=== PATIENT | male | born 1950 | race Caucasian/White ===

== ENCOUNTER 2020-11-14 15:50 | Inpatient (IN) ==
--- NOTE | 2020-11-14 17:12 | Communication Note ---
Date of Service: November 14, 2020 Received call from PCP, Dr Garcia about this pt, Mehdi Morillo. Pt had abnormal EKG outpatient today and reports is trying to get pt an echo for cardiac ahmet luation pre-op EUS scheduled for 11/16/[address] Thompson. I spoke with Dr Alexander, who states that PCP can order echo. If pt has done at [facility] tomorrow he would be able to read it prior to pt's procedure on 11/16/20. Called Dr Garcia back to inform that he can order outpatient echo.
--- NOTE | 2020-11-14 17:35 | Emergency Department Note ---
Impression & Plan Transaminitis, Elevated bilirubin, Abnormal ECG, Acute hyperglycemia ED Provider Note NAME: GUILHERME OLEA JR AGE: 70 SEX: M : 1950 ARRIVES VIA: Walk-In INFORMANT: Patient ED PROVIDER(S): Subhash Mills DO CHIEF COMPLAINT: abnormal ekg HPI: Patient is a 70-year-old male who presents the ER for abnormal EKG referred in by his PCP. Past medical history includes neuroendocrine carcinoma low- grade. Currently they are working this up as an outpatient. He has a ERCP scheduled on Thursday. He had an EKG which was abnormal. And consequently was referred into the ER for an echo. Patient denies any belly pain, nausea, vomiting or diarrhea. Patient initially notes that the jaundice has been present for the past month. Denies any recent CT. Denies any headache or change in vision. No other exacerbating or remitting factors. He denies any chest pain or shortness of breath. No exertional symptoms. ROS: See above HPI for pertinent positives & negatives. A total of 10 systems reviewed and were otherwise negative. PAST MEDICAL HISTORY:See Below PAST SURGICAL HISTORY:See Below FAMILY HISTORY:See Below SOCIAL HISTORY:See Below HOME MEDICATIONS:See Below ALLERGIES:See Below VITALS:See Below PHYSICAL EXAMINATION: GENERAL: Sitting up in bed, alert, well appearing, well nourished, no distress, non-toxic EYE EXAM: Scleral icterus PERRL and EOM's grossly intact. OROPHARYNX: no exudate, no erythema, lips, buccal mucosa, and tongue normal and mucous membranes are moist NECK: supple, no nuchal rigidity, no adenopathy, non-tender LUNGS: Clear to auscultation. Normal chest wall mechanics HEART: no murmurs, S1 normal and S2 normal ABDOMEN: abdomen soft, non-tender, normo-active bowel sounds, no masses, no rebound or guarding. BACK: Back is symmetrical on inspection and there is no deformity, no midline tenderness, no CVA tenderness. SKIN: no rashes and no bruising UPPER EXTREMITIES: upper extremities are grossly normal. LOWER EXTREMITIES: No pitting edema. NEURO EXAM: Normal sensorium, cranial nerves II-XII grossly intact, normal spee ch, no gross weakness of arms, no gross weakness of legs. MEDICAL DECISION MAKING: Patient is a 70-year-old male referred in by what appears to be his PCP for an abnormal EKG. I discussed this with Dr. Alexander who agrees that this can be done as an outpatient. IV was established and blood work was obtained. Labs show no significant leukocytosis and no anemia. BMP was unremarkable. Bilirubin elevated at 7.2 and transaminitis in the low 100s. Troponin was detectable at 0.026. Lipase was normal. Covid was negative. Chest x-ray unremarkable. EKG did have changes from previous. He is asymptomatic. I discussed the case with Jodi from [facility] service. She has been dealing with this case extensively with the outpatient providers. She discussed with Dr. Alexander as well as Dr. Garcia. Dr. Alexander is willing to perform ECHO as an outpatient tomorrow. Dr. Garcia was contacted to place that order per report. Contacted Dr. Melgar with as they sent over information as well. He was requesting admission as he had spoke with Dr. Thompson and they were hoping to get an echo and scope him tomorrow. Dr. Thompson is no longer on-call and I am unable to contact him. We discussed with Jodi [facility] service. Updated the patient at bedside. At this time of night unable to confirm true plan for tomorrow but as Dr. Melgar had discussed with Dr. Thompson will go with this plan and admit to the hospitalist. Triage Nursing notes reviewed. Limited review of prior medical records performed Vital Signs: reviewed and remarkable for HTN Differential diagnosis: Differential diagnoses includes but is not limited to gastritis, peptic ulcer disease, GERD, gallbladder disease, pancreatitis, small bowel obstruction, acute coronary syndrome, pericarditis, ischemic bowel, irritable bowel disease, irritable bowel syndrome, appendicitis, diverticulitis, malignancy, hernia, urinary tract infection, torsion, /ectopic (if female), perforation, trauma, infectious. ER treatment provided: See below Diagnostics interpreted by me: ECG: Sinus rhythm rate of 64 Left axis Right bundle branch block T wave inversion lateral leads QTC 447 Septal infarct T wave inversions are new from previous in 2016 Cardiac Monitoring: An order was placed for continuous cardiac monitoring. The monitor shows a rate of 60 with sinus rhythm. Laboratory studies: As stated above and show below. Imaging studies: Portable AP upright 1 view of the chest shows no focal infiltrate or pneumothorax Consultation(s): Discussed with multiple consultants as stated above Procedures: none Critical Care: None Past Med/Surg History Medical History (Updated 11/14/20 @ 21:36 by Subhash Mills DO) Benign neoplasm of colon Bifascicular block Diabetes mellitus, type 2 IDDM Hypertension Malignant carcinoid tumor of small intestine 2016, Follows with oncology (Dr. Melgar), s/p surgery plus monthly injection Neuroendocrine carcinoma metastatic to liver 2016, Follows with oncology (Dr. Melgar), s/p surgery plus monthly injection Surgical History History of appendectomy History of bowel resection small intestine and tumor removal History of cholecystectomy History of colonoscopy History of esophagogastroduodenoscopy (EGD) Social History Smoking Status: Current some day smoker Tobacco Type: Cigarettes Cigarettes Per Day: 3 per day; Second Hand Exposure: No; Hx Alcohol Use: Yes Alcohol type: wine Hx Substance Use: No Preferred Language: Bolivian Beliefs That Will Affect Care: None Current Living Situation: Spouse Feels Safe at Home: Yes Assistive Devices: Contacts Allergies Allergies Allergy/AdvReac Type Severity Reaction Status Date / Time No Known Allergies Allergy Verified 11/14/20 17:59 Home Meds Home Medications Medication Instructions Recorded Confirmed aspirin [Aspirin Low Dose] 81 mg PO QAM 11/14/20 11/14/20 cholecalciferol (vitamin D3) 50 mcg PO QAM 11/14/20 11/14/20 [Vitamin D3] insulin degludec [Tresiba 10 unit SUBCUT QAM 11/14/20 11/14/20 FlexTouch U-100] lisinopril 40 mg PO QAM 11/14/20 11/14/20 multivitamin 1 tab PO QAM 11/14/20 11/14/20 omega-3 fatty acids [[place] 3] 2,000 mg PO QAM 11/14/20 11/14/20 sildenafil [Viagra] 20 mg PO DAILY PRN 11/14/20 11/14/20 Results & Data (ED) Vital Signs Vital Signs - 24 hr 11/14/20 16:20 11/14/20 17:49 11/14/20 17:52 Temperature 36.1 C L Temperature Source Temporal Artery Scan Pulse Rate 70 58 L Pulse Rate [Right Finger] 58 L Pulse Rhythm [Right Finger] Regular Respiratory Rate 18 17 18 Respiratory Effort / Characteristics Non-Labored Respiratory Depth Normal Respiratory Pattern Blood Pressure 179/93 H 189/96 H Blood Pressure [Left Arm] 189/96 H Blood Pressure Mean 121 127 Blood Pressure Mean [Left Arm] 127 Pulse Oximetry 100 96 Oxygen Delivery Method Room Air Room Air Room Air Sepsis Recent Fever Within 48 Hours No Sepsis New/Unexplained Change in Mental Status N/A Sepsis Action Taken by Nursing No Action Required 11/14/20 18:00 11/14/20 18:02 11/14/20 18:30 Temperature Temperature Source Pulse Rate 55 L 56 L 57 L Pulse Rate [Right Finger] Pulse Rhythm [Right Finger] Respiratory Rate 18 18 14 Respiratory Effort / Characteristics Respiratory Depth Respiratory Pattern Blood Pressure 189/98 H Blood Pressure [Left Arm] Blood Pressure Mean 128 Blood Pressure Mean [Left Arm] Pulse Oximetry Oxygen Delivery Method Sepsis Recent Fever Within 48 Hours Sepsis New/Unexplained Change in Mental Status Sepsis Action Taken by Nursing 11/14/20 19:20 11/14/20 20:23 11/14/20 21:28 Temperature Temperature Source Pulse Rate Pulse Rate [Right Finger] 58 L 57 L 73 Pulse Rhythm [Right Finger] Respiratory Rate 20 20 20 Respiratory Effort / Characteristics Non-Labored Spontaneous Non-Labored Spontaneous Non-Labored Spontaneous Respiratory Depth Normal Normal Normal Respiratory Pattern Regular Regular Regular Blood Pressure Blood Pressure [Left Arm] 219/107 H 215/109 H 205/90 H Blood Pressure Mean Blood Pressure Mean [Left Arm] 144 144 128 Pulse Oximetry 99 100 100 Oxygen Delivery Method Room Air Room Air Room Air Sepsis Recent Fever Within 48 Hours Sepsis New/Unexplained Change in Mental Status Sepsis Action Taken by Nursing Laboratory Data Result diagrams: 11/14/20 17:35 11/14/20 17:35 Lab Results 11/14/20 11/14/20 11/14/20 Range/Units 17:35 17:35 19:24 WBC 5.54 (4.8-10.8) K/uL RBC 3.76 L (4.7-6.1) M/uL Hgb 12.9 L (14.0-18.0) g/dL Hct 36.4 L (42-52) % MCV 96.8 (80-100) fL MCH 34.3 H (25-34) pg MCHC 35.4 (32-36) g/dL RDW Std Deviation 49.1 H (36.4-46.3) fL RDW Coeff of Gumaro 13.8 (11.5-14.5) % Plt Count 162 (130-400) K/uL MPV 12.3 H (7.4-10.4) fL Immature Gran % (Auto) 0.5 % Neut % (Auto) 60.9 % Lymph % (Auto) 26.7 % Harris % (Auto) 9.6 % Eos % (Auto) 1.8 % Baso % (Auto) 0.5 % Neut # (Auto) 3.37 (1.4-6.5) K/uL Lymph # (Auto) 1.48 (1.2-3.4) K/uL Harris # (Auto) 0.53 (0.11-0.59) K/uL Eos # (Auto) 0.10 (0-0.5) K/uL Baso # (Auto) 0.03 (0-0.2) K/uL Immature Gran # (Auto) 0.03 H (0.00-0.02) K/uL Sodium 133 L (136-145) mmol/L Potassium 4.7 (3.5-5.1) mmol/L Chloride 102 (98-107) mmol/L Carbon Dioxide 26 (21-32) mmol/L Anion Gap 5.0 (3-11) BUN 23 H (7-18) mg/dl Creatinine 1.07 (0.6-1.4) mg/dl Est Cr Clr Drug Dosing 63.5 ml/min Est GFR ( Amer) 81.1 Est GFR (Non-Af Amer) 70.0 BUN/Creatinine Ratio 21.3 H (10-20) Glucose 275 H (70-99) mg/dl Calcium 9.5 (8.5-10.1) mg/dl Magnesium 1.8 (1.8-2.4) mg/dl Total Bilirubin 7.2 H (0.2-1) mg/dl AST 118 H (15-37) U/L ALT 156 H (12-78) U/L Alkaline Phosphatase 653 H (45-117) U/L Troponin I 0.026 (0-0.045) ng/ml Total Protein 7.2 (6.4-8.2) gm/dl Albumin 3.5 (3.4-5.0) gm/dl Globulin 3.7 (2.5-4.0) gm/dl Albumin/Globulin Ratio 0.9 (0.9-2) Lipase 98 (73-393) U/L COVID-19 Eval Order CovFluRsv at [facility] SARS-CoV-2 (PCR) (Negative) Influenza Type A (PCR) (Neg) Influenza Type B (PCR) (Neg) RSV (RT-PCR) (Neg) 11/14/20 Range/Units 19:24 WBC (4.8-10.8) K/uL RBC (4.7-6.1) M/uL Hgb (14.0-18.0) g/dL Hct (42-52) % MCV (80-100) fL MCH (25-34) pg MCHC (32-36) g/dL RDW Std Deviation (36.4-46.3) fL RDW Coeff of Gumaro (11.5-14.5) % Plt Count (130-400) K/uL MPV (7.4-10.4) fL Immature Gran % (Auto) % Neut % (Auto) % Lymph % (Auto) % Harris % (Auto) % Eos % (Auto) % Baso % (Auto) % Neut # (Auto) (1.4-6.5) K/uL Lymph # (Auto) (1.2-3.4) K/uL Harris # (Auto) (0.11-0.59) K/uL Eos # (Auto) (0-0.5) K/uL Baso # (Auto) (0-0.2) K/uL Immature Gran # (Auto) (0.00-0.02) K/uL Sodium (136-145) mmol/L Potassium (3.5-5.1) mmol/L Chloride (98-107) mmol/L Carbon Dioxide (21-32) mmol/L Anion Gap (3-11) BUN (7-18) mg/dl Creatinine (0.6-1.4) mg/dl Est Cr Clr Drug Dosing ml/min Est GFR ( Amer) Est GFR (Non-Af Amer) BUN/Creatinine Ratio (10-20) Glucose (70-99) mg/dl Calcium (8.5-10.1) mg/dl Magnesium (1.8-2.4) mg/dl Total Bilirubin (0.2-1) mg/dl AST (15-37) U/L ALT (12-78) U/L Alkaline Phosphatase (45-117) U/L Troponin I (0-0.045) ng/ml Total Protein (6.4-8.2) gm/dl Albumin (3.4-5.0) gm/dl Globulin (2.5-4.0) gm/dl Albumin/Globulin Ratio (0.9-2) Lipase (73-393) U/L COVID-19 Eval Order SARS-CoV-2 (PCR) NEGATIVE (Negative) Influenza Type A (PCR) Negative (Neg) Influenza Type B (PCR) Negative (Neg) RSV (RT-PCR) Negative (Neg) Administered Medications Discontinued Medications Amlodipine Besylate (Amlodipine Besylate 5 Mg Tab) 2.5 mg PO NOW ONE Stop: 11/14/20 20:08 Last Admin: 11/14/20 20:31 Dose: 2.5 mg Documented by: [id number] Hydralazine HCl (Hydralazine Hcl 20 Mg/Ml Vial) 10 mg IV NOW STA Stop: 11/14/20 19:30 Last Admin: 11/14/20 19:53 Dose: 10 mg Documented by: [id number] Thiamine HCl 100 mg/ Syringe 10 mls @ 2 mls/min IV NOW STA Stop: 11/14/20 20:15 Last Admin: 11/14/20 20:33 Dose: 2 mls/min Documented by: [id number] Discharge Plan Visit Data Chief Complaint: Referred by Doctor Stated Complaint: referred by Dr. Melgar ED Provider: Subhash Mills Discharge Problem: Transaminitis, Elevated bilirubin, Abnormal ECG, Acute hyperglycemia Forms Stand Alone Forms: My [facility] [employer] Prescriptions Prescriptions: No Action multivitamin Tablet 1 tab PO QAM RF: 0 cholecalciferol (vitamin D3) [Vitamin D3] 50 mcg (2,000 unit) Capsule 50 mcg PO QAM RF: 0 Tresiba FlexTouch U-100 100 unit/mL (3 mL) Insulin Pen 10 unit SUBCUT QAM RF: 0 sildenafil [Viagra] 25 mg Tablet 20 mg PO DAILY PRN (Reason: Erectile Disfuction) RF: 0 lisinopril 40 mg Tablet 40 mg PO QAM RF: 0 aspirin [Aspirin Low Dose] 81 mg Tablet,Delayed Release (Dr/Ec) 81 mg PO QAM RF: 0 [place] 3 Capsule 2,000 mg PO QAM RF: 0
[2020-11-14 17:44] LABS: Basophils # (auto) 0.03 K/uL (0-0.2); Basophils % (auto) 0.5 %; Eosinophils % (auto) 1.8 %; Hematocrit (blood only) 36.4 % (42-52); Hemoglobin 12.9 g/dL (14.0-18.0); Immature Granulocytes # (auto) 0.03 K/uL (0.00-0.02); Immature Granulocytes % (auto) 0.5 %; Lymphocytes # (auto) 1.48 K/uL (1.2-3.4); Lymphocytes % (auto) 26.7 %; Mean Corpuscular Hemoglobin 34.3 pg (25-34); Mean Corpuscular Hgb Conc 35.4 g/dL (32-36); Mean Corpuscular Volume 96.8 fL (80-100); Mean Platelet Volume 12.3 fL (7.4-10.4); Monocytes # (auto) 0.53 K/uL (0.11-0.59); Monocytes % (auto) 9.6 %; Neutrophils # (auto) 3.37 K/uL (1.4-6.5); Neutrophils % (auto) 60.9 %; Platelet Count 162 K/uL (130-400); RDW Coefficient of Variation 13.8 % (11.5-14.5); RDW Standard Deviation 49.1 fL (36.4-46.3); Red Blood Count 3.76 M/uL (4.7-6.1); White Blood Count 5.54 K/uL (4.8-10.8)
--- NOTE | 2020-11-14 17:45 | XRay Report ---
XR chest 1V portable CLINICAL HISTORY: Atypical chest pain COMPARISON STUDY: 03/04/2016 FINDINGS: The cardiac and mediastinal contours are normal. There is no evidence of focal pulmonary co nsolidation. There is no evidence of failure. No pleural effusions are visualized.[A left midlung zon e area of increased density is felt to represent a summation of rib and scapula. IMPRESSION: No active disease in the chest. ACT 112: Negative or not required by law. Electronically signed by: Chan Turner M.D. 11/14/2020 5:44 PM
[2020-11-14 18:05] LABS: Albumin Globulin Ratio 0.9 (0.9-2); Albumin Level 3.5 gm/dl (3.4-5.0); BUN Creatinine Ratio 21.3 (10-20); Bilirubin,Total 7.2 mg/dl (0.2-1); Calcium 9.5 mg/dl (8.5-10.1); Creatinine Clr Calc Pharmacy 63.5 ml/min; Est GFR (African American) 81.1; Globulin 3.7 gm/dl (2.5-4.0); Potassium 4.7 mmol/L (3.5-5.1); Total Protein 7.2 gm/dl (6.4-8.2); Troponin I 0.026 ng/ml (0-0.045)
[2020-11-14] MEDS ORDERED: hydrALAZINE HCL 20 MG/ML VIAL IV STA (19:29)
[2020-11-14 19:42] LABS: Magnesium 1.8 mg/dl (1.8-2.4)
[2020-11-14] MEDS ORDERED: amLODIPine BESYLATE 5 MG TAB PO ONE (20:07)
--- NOTE | 2020-11-14 20:07 | History & Physical Report ---
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 Thompson already aware of patient's case as per outpatient notes. Patient refusing imaging until seen by GI service.) TTE, Cardiology consult Re: Abnormal EKG, preprocedural evaluation Basal insulin, ISS BG goal 501256, carb count coverage Nicotine patch as needed DVT prophylaxis per Lovenox subcu Full code Text document was generated using [employer] customer insight voice recognition software. It may contain grammatical or spelling errors. Kindly contact undersigned for clarification of any documentation item in question. History of Present Illness Chief Complaint: Abnormal EKG, sent by oncologist's office Primary Care Provider: Mehdi Garcia MD History obtained from patient and records. 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 Last confinement February 2016 for pancreatitis. Patient eventually found to have neuroendocrine carcinoma of the small intestine with hepatic mets status post surgery at [facility] [place] (05/2016). Multiple hepatic lesions noted. Monthly Sandostatin Rx given since August 2016. Gallium PET scan report from November 2017 showed multiple liver lesions, bone lesions involving the ribs, left scapula, sternum and left ilium. Possible recurrent disease at the previous surgical site. Patient asymptomatic as per outpatient oncology documentation. Outpatient CT chest, abdomen, pelvis from January 2020 showed right upper and right lower lobe pulmonary nodules. Suggest follow-up imaging to exclude metastatic disease. Soft tissue nodule pleural posterior left lower lobe concerning for metastatic disease. Postop changes from left hepatectomy. Low-density lesion hepatic dome measuring 0.8 x 1.2 cm concerning for metastatic disease. Infiltration of peripancreatic duct predominately at the pancreatic body and tail concerning for inflammation and pancreatitis. Postop changes right hemicolectomy. Colitis. 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 Bladder wall thickening. No destructive bony lesion identified on this study. No CT abnormality identified to correlate with areas of uptake on PET/CT November 2017 concerning for metastatic disease. 3 months history of jaundice without abdominal pain symptoms. Weight loss despite good appetite as per patient. No chest pain, no S OB., No headache. No fever, no chills. Outpatient chemistry yesterday showed AST 144, ALT 165, alk phos 08/29/1969, bilirubin 6.5, serum glucose 367. Hemoglobin A1c noted to be 10. Patient seen at PCP's office yesterday to discuss abnormal blood work results. Concern for obstructive jaundice. Outpatient EUS/ERCP by [facility] contemplated 11/16/20. Insulin to be initiated outpatient for DM2. As per patient, EKG was done at the office because provider noted irregular heartbeat. EKG showed sinus bradycardia, RBBB, LAFB, bifascicular block, septal infarct. Cardiology (contacted by PCP through [facility]) recommended 2D echo and preoperative stratification. Outpatient providers directed patient to the hospital to facilitate work-up for cardiac and GI issues. 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 Allergies Allergy/AdvReac Type Severity Reaction Status Date / Time No Known Allergies Allergy Verified 11/14/20 17:59 Home Medications Medication Instructions Recorded Confirmed Type aspirin [Aspirin Low Dose] 81 mg PO QAM 11/14/20 11/14/20 History cholecalciferol (vitamin D3) 50 mcg PO QAM 11/14/20 11/14/20 History [Vitamin D3] insulin degludec [Tresiba 10 unit SUBCUT QAM 11/14/20 11/14/20 History FlexTouch U-100] lisinopril 40 mg PO QAM 11/14/20 11/14/20 History multivitamin 1 tab PO QAM 11/14/20 11/14/20 History omega-3 fatty acids [[place] 3] 2,000 mg PO QAM 11/14/20 11/14/20 History sildenafil [Viagra] 20 mg PO DAILY PRN 11/14/20 11/14/20 History Past Med/Surg History Medical History (Updated 11/15/20 @ 01:12 by Humberto Rodriguez MD) Benign neoplasm of colon Bifascicular block Diabetes mellitus, type 2 IDDM Hypertension Malignant carcinoid tumor of small intestine 2016, Follows with oncology (Dr. Melgar), s/p surgery plus monthly injection Neuroendocrine carcinoma metastatic to liver 2016, Follows with oncology (Dr. Melgar), s/p surgery plus monthly injection Surgical History History of appendectomy History of bowel resection small intestine and tumor removal History of cholecystectomy History of colonoscopy History of esophagogastroduodenoscopy (EGD) Social History Smoking Status: Current some day smoker Tobacco Type: Cigarettes Cigarettes Per Day: 1-2; Second Hand Exposure: No; Hx Alcohol Use: Yes Alcohol type: wine Hx Substance Use: No Preferred Language: Arabic Communication Ability: Effective Equipment Tech Required: No Beliefs That Will Affect Care: None Current Living Situation: Spouse Other Information That Helps Us Care for You: No Feels Safe at Home: Yes Safety Concerns: Feels Safe At This Time Assistive Devices: Glasses Review of Systems Review of Systems: As per HPI, all 10 systems reviewed, all other ROS negative Physical Exam Physical Exam: GENERAL: Comfortable, no respiratory distress SKIN: Pallor, warm HEENT: Pale palpebral conjunctivae, icteric sclerae, no ptosis, moist buccal mucosa NECK : Supple, no tenderness CHEST : CTA, no tenderness HEART : Bradycardic, no obvious murmurs ABDOMEN: no abdominal distention, nontender EXTREMITIES : No LE swelling/tenderness, no other conspicuous deformities noted NEUROLOGIC : Coherent, no facial asymmetry, no other gross focality Results & Data Results & Data ([facility]) Vital Signs (Past 12 Hours) Vital Signs Temp Pulse Pulse Resp BP BP Pulse Ox 11/14/20 19:20 58 L 20 219/107 H 99 11/14/20 18:30 57 L 14 11/14/20 18:02 56 L 18 11/14/20 18:00 55 L 18 189/98 H 11/14/20 17:52 58 L 18 189/96 H 96 11/14/20 17:49 58 L 17 189/96 H 11/14/20 16:20 36.1 C L 70 18 179/93 H 100 Laboratory Results Laboratory Results WBC 5.54 K/uL (4.8-10.8) 11/14/20 17:35 RBC 3.76 M/uL (4.7-6.1) L 11/14/20 17:35 Hgb 12.9 g/dL (14.0-18.0) L 11/14/20 17:35 Hct 36.4 % (42-52) L 11/14/20 17:35 MCV 96.8 fL (80-100) 11/14/20 17:35 MCH 34.3 pg (25-34) H 11/14/20 17:35 MCHC 35.4 g/dL (32-36) 11/14/20 17:35 RDW Std Deviation 49.1 fL (36.4-46.3) H 11/14/20 17:35 RDW Coeff of Gumaro 13.8 % (11.5-14.5) 11/14/20 17:35 Plt Count 162 K/uL (130-400) 11/14/20 17:35 MPV 12.3 fL (7.4-10.4) H 11/14/20 17:35 Immature Gran % (Auto) 0.5 % 11/14/20 17:35 Neut % (Auto) 60.9 % 11/14/20 17:35 Lymph % (Auto) 26.7 % 11/14/20 17:35 [place] % (Auto) 9.6 % 11/14/20 17:35 Eos % (Auto) 1.8 % 11/14/20 17:35 Baso % (Auto) 0.5 % 11/14/20 17:35 Neut # (Auto) 3.37 K/uL (1.4-6.5) 11/14/20 17:35 Lymph # (Auto) 1.48 K/uL (1.2-3.4) 11/14/20 17:35 [place] # (Auto) 0.53 K/uL (0.11-0.59) 11/14/20 17:35 Eos # (Auto) 0.10 K/uL (0-0.5) 11/14/20 17:35 Baso # (Auto) 0.03 K/uL (0-0.2) 11/14/20 17:35 Immature Gran # (Auto) 0.03 K/uL (0.00-0.02) H 11/14/20 17:35 Sodium 133 mmol/L (136-145) L 11/14/20 17:35 Potassium 4.7 mmol/L (3.5-5.1) 11/14/20 17:35 Chloride 102 mmol/L (98-107) 11/14/20 17:35 Carbon Dioxide 26 mmol/L (21-32) 11/14/20 17:35 Anion Gap 5.0 (3-11) 11/14/20 17:35 BUN 23 mg/dl (7-18) H 11/14/20 17:35 Creatinine 1.07 mg/dl (0.6-1.4) 11/14/20 17:35 Est Cr Clr Drug Dosing 63.5 ml/min 11/14/20 17:35 Est GFR ( Amer) 81.1 11/14/20 17:35 Est GFR (Non-Af Amer) 70.0 11/14/20 17:35 BUN/Creatinine Ratio 21.3 (10-20) H 11/14/20 17:35 Glucose 275 mg/dl (70-99) H 11/14/20 17:35 Calcium 9.5 mg/dl (8.5-10.1) 11/14/20 17:35 Magnesium 1.8 mg/dl (1.8-2.4) 11/14/20 17:35 Total Bilirubin 7.2 mg/dl (0.2-1) H 11/14/20 17:35 AST 118 U/L (15-37) H 11/14/20 17:35 ALT 156 U/L (12-78) H 11/14/20 17:35 Alkaline Phosphatase 653 U/L (45-117) H 11/14/20 17:35 Troponin I 0.026 ng/ml (0-0.045) 11/14/20 17:35 Total Protein 7.2 gm/dl (6.4-8.2) 11/14/20 17:35 Albumin 3.5 gm/dl (3.4-5.0) 11/14/20 17:35 Globulin 3.7 gm/dl (2.5-4.0) 11/14/20 17:35 Albumin/Globulin Ratio 0.9 (0.9-2) 11/14/20 17:35 Lipase 98 U/L (73-393) 11/14/20 17:35 COVID-19 Eval Order CovFluRsv at [facility] 11/14/20 19:24 Diagnostic Findings Chest x-ray : No active disease in the chest. EKG as per my interpretation : Rate 65, NSR, LAD, LAFB, RBBB, LVH, septal infarct, T wave inversion lateral leads
[2020-11-14] MEDS ORDERED: THIAMINE HCL 100 MG in SYRINGE 9 ML IV STA (20:11)
[2020-11-14 20:55] LABS: Influenza A virus by PCR Negative (Neg); Influenza B virus by PCR Negative (Neg); RSV by PCR Negative (Neg); SARS CoV2 RNA(COVID-19) InHosp NEGATIVE (Negative)
[2020-11-14] MEDS ORDERED: INSULIN GLARGINE SOLOSTAR 100 UNITS/ML 3 ML PEN SC STA (22:38)
[2020-11-14] MEDS ORDERED: CARBOHYDRATES FOR HYPOGLYCEMIA PO PRN (22:38)
[2020-11-14] MEDS ORDERED: PROMETHAZINE HCL 6.25 MG in SODIUM CHLORIDE 0.9% 50 ML IV PRN (22:38)
[2020-11-14] MEDS ORDERED: ACETAMINOPHEN 325 MG TAB PO PRN (22:38)
[2020-11-14] MEDS ORDERED: oxyCODONE HCL IR 5 MG TAB (IMMEDIATE RELEASE) PO PRN (22:38)
[2020-11-14] MEDS ORDERED: LORazepam 0.5 MG/1 ML VIAL IV PRN (22:38)
[2020-11-14] MEDS ORDERED: GLUCAGON FOR INJ 1 MG VIAL SQ PRN (22:38)
[2020-11-14] MEDS ORDERED: DEXTROSE 50% 50 ML SYRINGE IV PRN (22:38)
[2020-11-14] MEDS ORDERED: amLODIPine BESYLATE 5 MG TAB PO SCH (22:38)
[2020-11-14] MEDS ORDERED: GLUCOSE 40% GEL 15 GM TUBE PO PRN (22:38)
[2020-11-14] MEDS ORDERED: GLUCOSE 10 TABS/TUBE PO PRN (22:38)
[2020-11-14] MEDS: SODIUM CHLORIDE 0.9% 1000ML 1,000 ML IV SCH (23:28)
[2020-11-14] MEDS: INSULIN ASPART 100 UNITS/ML 3 ML PEN SC SCH (23:29)
[2020-11-15 06:09] LABS: Basophils # (auto) 0.02 K/uL (0-0.2); Basophils % (auto) 0.4 %; Eosinophils # (auto) 0.08 K/uL (0-0.5); Eosinophils % (auto) 1.6 %; Hematocrit (blood only) 35.2 % (42-52); Hemoglobin 12.1 g/dL (14.0-18.0); Immature Granulocytes # (auto) 0.01 K/uL (0.00-0.02); Immature Granulocytes % (auto) 0.2 %; Lymphocytes # (auto) 1.24 K/uL (1.2-3.4); Lymphocytes % (auto) 25.6 %; Mean Corpuscular Hemoglobin 33.1 pg (25-34); Mean Corpuscular Hgb Conc 34.4 g/dL (32-36); Mean Corpuscular Volume 96.2 fL (80-100); Mean Platelet Volume 12.4 fL (7.4-10.4); Monocytes # (auto) 0.61 K/uL (0.11-0.59); Monocytes % (auto) 12.6 %; Neutrophils # (auto) 2.89 K/uL (1.4-6.5); Neutrophils % (auto) 59.6 %; Platelet Count 156 K/uL (130-400); RDW Coefficient of Variation 13.7 % (11.5-14.5); RDW Standard Deviation 48.4 fL (36.4-46.3); Red Blood Count 3.66 M/uL (4.7-6.1); White Blood Count 4.85 K/uL (4.8-10.8)
[2020-11-15] MEDS: INSULIN ASPART 100 UNITS/ML 3 ML PEN SC SCH ×3 (06:27→16:59)
[2020-11-15 06:45] LABS: Albumin Globulin Ratio 0.9 (0.9-2); Albumin Level 2.9 gm/dl (3.4-5.0); BUN Creatinine Ratio 18.1 (10-20); Bilirubin,Total 6.9 mg/dl (0.2-1); Calcium 8.6 mg/dl (8.5-10.1); Creatinine Clr Calc Pharmacy 77.6 ml/min; Est GFR (African American) 101.3; Est GFR (Non-African American) 87.4; Globulin 3.4 gm/dl (2.5-4.0); Potassium 3.6 mmol/L (3.5-5.1); Total Protein 6.3 gm/dl (6.4-8.2)
--- NOTE | 2020-11-15 08:20 | Gastrointestinal Consultation ---
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 Overall picture concerning for possible biliary obstruction vs increased tumor burden from his underlying malignancy. He appears comfortable on exam with soft abd. - Case discussed with endoscopist who will be performing EUS tomorrow, Dr. Thompson - will obtain MRI/MRCP to get updated images. - Appreciate cardiac evaluation - Continue supportive care - Will make NPO after midnight, plan for EUS tomorrow Thank you for allowing us to participate in the care of this patient. Please call with any acute changes, questions or concerns. Please see addendum below with additional recommendation from my supervising physician. (2) Transaminitis: Supervising Physician Co-Signing Physician Notes Attending attestation I have seen, examined this patient, and agree with the findings and above by our mid-level provider Ms. Inna Pascal, P.A., with the following additions: Patient with known metastatic NET Now with increased bilirubin and concern for obstruction MRCP today Plan for EUS/ERCP tomorrow with Dr. Thompson Call with questions NPO after MN History of Present Illness Attending Physician: Stefan Cervantes MD History of Present Illness This is a 70 y/o male with complicated PMHx including neuroendocrine carcinoma, primary site involving small intestine initially diagnosed in 2016, with imaging studies done in 2018 showed metastatic disease involving the liver, bones, S/P resection of small intestine, R-hemicolectomy, cholecystectomy, and resection left lobe of the liver (06/04/2016). He is on Sandostatin LAR since 2017. He had recent blood work on 11/13/2020 with new onset of obstructive jaundice with elevated tbili , and was set-up for EUS +/- ERCP. He was recently dx'd with DM with A1C 10% and PCP noted and irregular heartbeat yesterday; EKG showed sinus alpa, new RBBB, LAFB, bifascicular block, septal infarct. He was sent to the ER; on arrival had hypertension and his anti-hypertensives are being adjusted. He is having a 2D echo and cardiology evaluation. Labs notable for AST 144, ALT 165, alk phos 647, T bili 6.5, today is 6.9, glucose 242, albumin 2.9, normal renal function and sodium, potassium, Hgb 12.1, WBC 4K, PLT 156, INR 1.1, troponin WNL. Last GI imaging was January 2020 which was notable for right-sided pulmonary nodules, hepatic lesion concerning for metastatic disease, infiltration of the pancreatic duct, chronic splenic vein thrombosis and gastric, mesenteric varices. He tells me he developed weight loss over the last several weeks, has lost approximately 14 pounds, despite no change in appetite. He is also noticed some jaundice. Other than that, denies GI symptoms, including no nausea vomiting, hematemesis, heartburn or dysphagia, bloating or gas, abdominal pain, change in BM, melena or hematochezia, chest pain or shortness of breath, fevers or chills, leg edema, rashes unusual bleeding. He drinks 2 alcoholic drinks per night, and smokes daily. Allergies Allergy/AdvReac Type Severity Reaction Status Date / Time No Known Allergies Allergy Verified 11/14/20 17:59 Home Medications Medication Instructions Recorded Confirmed Type aspirin [Aspirin Low Dose] 81 mg PO QAM 11/14/20 11/14/20 History cholecalciferol (vitamin D3) 50 mcg PO QAM 11/14/20 11/14/20 History [Vitamin D3] insulin degludec [Tresiba 10 unit SUBCUT QAM 11/14/20 11/14/20 History FlexTouch U-100] lisinopril 40 mg PO QAM 11/14/20 11/14/20 History multivitamin 1 tab PO QAM 11/14/20 11/14/20 History omega-3 fatty acids [[place] 3] 2,000 mg PO QAM 11/14/20 11/14/20 History sildenafil [Viagra] 20 mg PO DAILY PRN 11/14/20 11/14/20 History Patient History Medical History Benign neoplasm of colon Bifascicular block Diabetes mellitus, type 2 IDDM Hypertension Malignant carcinoid tumor of small intestine 2016, Follows with oncology (Dr. Melgar), s/p surgery plus monthly injection Neuroendocrine carcinoma metastatic to liver 2016, Follows with oncology (Dr. Melgar), s/p surgery plus monthly injection Surgical History History of appendectomy History of bowel resection small intestine and tumor removal History of cholecystectomy History of colonoscopy History of esophagogastroduodenoscopy (EGD) Social History Smoking Status: Current some day smoker Tobacco Type: Cigarettes Cigarettes Per Day: 1-2; Second Hand Exposure: No; Hx Alcohol Use: Yes Alcohol type: wine Hx Substance Use: No Preferred Language: Amharic Communication Ability: Effective Surfacer Operator Required: No Beliefs That Will Affect Care: None Current Living Situation: Spouse Other Information That Helps Us Care for You: No Feels Safe at Home: Yes Safety Concerns: Feels Safe At This Time Assistive Devices: None Review of Systems Review of Systems: All systems reviewed & are unremarkable except as noted in HPI & below Physical Exam Constitutional: well developed and + ill appearing obviously jaundiced Eyes: icterus Respiratory: normal respiratory effort, lungs clear to auscultation Cardiovascular: Rate/Rhythm: regular rate and regular rhythm Gastrointestinal (Abdomen): Inspection/Auscultation: abdomen normal to inspection and normal bowel sounds; abdomen not distended Percussion/Palpation: abdomen soft; abdomen nontender + healed surgical scars Skin: + jaundice Psychiatric: A+Ox3, euthymic affect Results & Data ([facility]) Vital Signs (Past 12 Hours) Vital Signs Temp Pulse Pulse Resp BP BP Pulse Ox 11/15/20 07:22 36.8 C 61 18 160/70 H 99 11/15/20 03:33 36.9 C 67 16 151/62 H 97 11/15/20 00:44 148/72 H 11/15/20 00:06 36.5 C 59 L 18 170/68 H 99 11/14/20 22:30 36.5 C 62 20 191/89 H 100 11/14/20 21:58 68 20 197/98 H 100 11/14/20 21:28 73 20 205/90 H 100 11/14/20 20:23 57 L 20 215/109 H 100 Laboratory Results 11/15/20 11/15/20 11/15/20 Range/Units 11:05 08:33 06:13 WBC (4.8-10.8) K/uL RBC (4.7-6.1) M/uL Hgb (14.0-18.0) g/dL Hct (42-52) % MCV (80-100) fL MCH (25-34) pg MCHC (32-36) g/dL RDW Std Deviation (36.4-46.3) fL RDW Coeff of [place]um[place] (11.5-14.5) % Plt Count (130-400) K/uL MPV (7.4-10.4) fL Immature Gran % (Auto) % Neut % (Auto) % Lymph % (Auto) % [place] % (Auto) % Eos % (Auto) % Baso % (Auto) % Neut # (Auto) (1.4-6.5) K/uL Lymph # (Auto) (1.2-3.4) K/uL [place] # (Auto) (0.11-0.59) K/uL Eos # (Auto) (0-0.5) K/uL Baso # (Auto) (0-0.2) K/uL Immature Gran # (Auto) (0.00-0.02) K/uL PT 11.2 (9.0-12.0) Seconds INR 1.1 (0.9-1.1) Sodium (136-145) mmol/L Potassium (3.5-5.1) mmol/L Chloride (98-107) mmol/L Carbon Dioxide (21-32) mmol/L Anion Gap (3-11) BUN (7-18) mg/dl Creatinine (0.6-1.4) mg/dl Est Cr Clr Drug Dosing ml/min Est GFR ( Amer) Est GFR (Non-Af Amer) BUN/Creatinine Ratio (10-20) Glucose (70-99) mg/dl POC Glucose 205 H 243 H (70-99) mg/dl Calcium (8.5-10.1) mg/dl Magnesium (1.8-2.4) mg/dl Total Bilirubin (0.2-1) mg/dl AST (15-37) U/L ALT (12-78) U/L Alkaline Phosphatase (45-117) U/L Troponin I (0-0.045) ng/ml Total Protein (6.4-8.2) gm/dl Albumin (3.4-5.0) gm/dl Globulin (2.5-4.0) gm/dl Albumin/Globulin Ratio (0.9-2) Lipase (73-393) U/L COVID-19 Eval Order SARS-CoV-2 (PCR) (Negative) Influenza Type A (PCR) (Neg) Influenza Type B (PCR) (Neg) RSV (RT-PCR) (Neg) 11/15/20 11/15/20 11/14/20 Range/Units 05:44 05:44 22:46 WBC 4.85 (4.8-10.8) K/uL RBC 3.66 L (4.7-6.1) M/uL Hgb 12.1 L (14.0-18.0) g/dL Hct 35.2 L (42-52) % MCV 96.2 (80-100) fL MCH 33.1 (25-34) pg MCHC 34.4 (32-36) g/dL RDW Std Deviation 48.4 H (36.4-46.3) fL RDW Coeff of [place] 13.7 (11.5-14.5) % Plt Count 156 (130-400) K/uL MPV 12.4 H (7.4-10.4) fL Immature Gran % (Auto) 0.2 % Neut % (Auto) 59.6 % Lymph % (Auto) 25.6 % [place] % (Auto) 12.6 % Eos % (Auto) 1.6 % Baso % (Auto) 0.4 % Neut # (Auto) 2.89 (1.4-6.5) K/uL Lymph # (Auto) 1.24 (1.2-3.4) K/uL [place] # (Auto) 0.61 H (0.11-0.59) K/uL Eos # (Auto) 0.08 (0-0.5) K/uL Baso # (Auto) 0.02 (0-0.2) K/uL Immature Gran # (Auto) 0.01 (0.00-0.02) K/uL PT (9.0-12.0) Seconds INR (0.9-1.1) Sodium 136 (136-145) mmol/L Potassium 3.6 D (3.5-5.1) mmol/L Chloride 105 (98-107) mmol/L Carbon Dioxide 25 (21-32) mmol/L Anion Gap 6.0 (3-11) BUN 16 (7-18) mg/dl Creatinine 0.87 (0.6-1.4) mg/dl Est Cr Clr Drug Dosing 77.6 ml/min Est GFR ( Amer) 101.3 Est GFR (Non-Af Amer) 87.4 BUN/Creatinine Ratio 18.1 (10-20) Glucose 242 H (70-99) mg/dl POC Glucose 207 H (70-99) mg/dl Calcium 8.6 (8.5-10.1) mg/dl Magnesium (1.8-2.4) mg/dl Total Bilirubin 6.9 H (0.2-1) mg/dl AST 144 H (15-37) U/L ALT 156 H (12-78) U/L Alkaline Phosphatase 647 H (45-117) U/L Troponin I (0-0.045) ng/ml Total Protein 6.3 L (6.4-8.2) gm/dl Albumin 2.9 L (3.4-5.0) gm/dl Globulin 3.4 (2.5-4.0) gm/dl Albumin/Globulin Ratio 0.9 (0.9-2) Lipase (73-393) U/L COVID-19 Eval Order SARS-CoV-2 (PCR) (Negative) Influenza Type A (PCR) (Neg) Influenza Type B (PCR) (Neg) RSV (RT-PCR) (Neg) 11/14/20 11/14/20 11/14/20 Range/Units 19:24 19:24 17:35 WBC (4.8-10.8) K/uL RBC (4.7-6.1) M/uL Hgb (14.0-18.0) g/dL Hct (42-52) % MCV (80-100) fL MCH (25-34) pg MCHC (32-36) g/dL RDW Std Deviation (36.4-46.3) fL RDW Coeff of [place] (11.5-14.5) % Plt Count (130-400) K/uL MPV (7.4-10.4) fL Immature Gran % (Auto) % Neut % (Auto) % Lymph % (Auto) % [place] % (Auto) % Eos % (Auto) % Baso % (Auto) % Neut # (Auto) (1.4-6.5) K/uL Lymph # (Auto) (1.2-3.4) K/uL [place] # (Auto) (0.11-0.59) K/uL Eos # (Auto) (0-0.5) K/uL Baso # (Auto) (0-0.2) K/uL Immature Gran # (Auto) (0.00-0.02) K/uL PT (9.0-12.0) Seconds INR (0.9-1.1) Sodium 133 L (136-145) mmol/L Potassium 4.7 (3.5-5.1) mmol/L Chloride 102 (98-107) mmol/L Carbon Dioxide 26 (21-32) mmol/L Anion Gap 5.0 (3-11) BUN 23 H (7-18) mg/dl Creatinine 1.07 (0.6-1.4) mg/dl Est Cr Clr Drug Dosing 63.5 ml/min Est GFR ( Amer) 81.1 Est GFR (Non-Af Amer) 70.0 BUN/Creatinine Ratio 21.3 H (10-20) Glucose 275 H (70-99) mg/dl POC Glucose (70-99) mg/dl Calcium 9.5 (8.5-10.1) mg/dl Magnesium 1.8 (1.8-2.4) mg/dl Total Bilirubin 7.2 H (0.2-1) mg/dl AST 118 H (15-37) U/L ALT 156 H (12-78) U/L Alkaline Phosphatase 653 H (45-117) U/L Troponin I 0.026 (0-0.045) ng/ml Total Protein 7.2 (6.4-8.2) gm/dl Albumin 3.5 (3.4-5.0) gm/dl Globulin 3.7 (2.5-4.0) gm/dl Albumin/Globulin Ratio 0.9 (0.9-2) Lipase 98 (73-393) U/L COVID-19 Eval Order [facility]sv at [facility] SARS-CoV-2 (PCR) NEGATIVE (Negative) Influenza Type A (PCR) Negative (Neg) Influenza Type B (PCR) Negative (Neg) RSV (RT-PCR) Negative (Neg) 11/14/20 Range/Units 17:35 WBC 5.54 (4.8-10.8) K/uL RBC 3.76 L (4.7-6.1) M/uL Hgb 12.9 L (14.0-18.0) g/dL Hct 36.4 L (42-52) % MCV 96.8 (80-100) fL MCH 34.3 H (25-34) pg MCHC 35.4 (32-36) g/dL RDW Std Deviation 49.1 H (36.4-46.3) fL RDW Coeff of [place] 13.8 (11.5-14.5) % Plt Count 162 (130-400) K/uL MPV 12.3 H (7.4-10.4) fL Immature Gran % (Auto) 0.5 % Neut % (Auto) 60.9 % Lymph % (Auto) 26.7 % [place] % (Auto) 9.6 % Eos % (Auto) 1.8 % Baso % (Auto) 0.5 % Neut # (Auto) 3.37 (1.4-6.5) K/uL Lymph # (Auto) 1.48 (1.2-3.4) K/uL [place] # (Auto) 0.53 (0.11-0.59) K/uL Eos # (Auto) 0.10 (0-0.5) K/uL Baso # (Auto) 0.03 (0-0.2) K/uL Immature Gran # (Auto) 0.03 H (0.00-0.02) K/uL PT (9.0-12.0) Seconds INR (0.9-1.1) Sodium (136-145) mmol/L Potassium (3.5-5.1) mmol/L Chloride (98-107) mmol/L Carbon Dioxide (21-32) mmol/L Anion Gap (3-11) BUN (7-18) mg/dl Creatinine (0.6-1.4) mg/dl Est Cr Clr Drug Dosing ml/min Est GFR ( Amer) Est GFR (Non-Af Amer) BUN/Creatinine Ratio (10-20) Glucose (70-99) mg/dl POC Glucose (70-99) mg/dl Calcium (8.5-10.1) mg/dl Magnesium (1.8-2.4) mg/dl Total Bilirubin (0.2-1) mg/dl AST (15-37) U/L ALT (12-78) U/L Alkaline Phosphatase (45-117) U/L Troponin I (0-0.045) ng/ml Total Protein (6.4-8.2) gm/dl Albumin (3.4-5.0) gm/dl Globulin (2.5-4.0) gm/dl Albumin/Globulin Ratio (0.9-2) Lipase (73-393) U/L COVID-19 Eval Order SARS-CoV-2 (PCR) (Negative) Influenza Type A (PCR) (Neg) Influenza Type B (PCR) (Neg) RSV (RT-PCR) (Neg)
[2020-11-15] MEDS: MULTIVITAMIN TAB PO SCH (08:21)
[2020-11-15] MEDS: ASPIRIN 81 MG ECTAB PO SCH (08:21)
[2020-11-15] MEDS: lisinopril 40 MG TAB PO SCH (08:21)
[2020-11-15 08:52] LABS: INR 1.1 (0.9-1.1); Prothrombin Time 11.2 Seconds (9.0-12.0)
[2020-11-15] MEDS ORDERED: ENOXAPARIN INJ 30 MG/0.3 ML SYR SQ SCH (09:00)
--- NOTE | 2020-11-15 11:59 | Cardiology Consultation ---
Date of Consultation November 15, 2020 Assessment & Plan (1) Abnormal ECG: (2) Encounter for pre-operative examination: (3) Elevated bilirubin: (4) Hypertension: (5) Hypertensive heart disease: Patient with new conduction system disease on outpatient/inpatient EKG. He has no symptoms. Underlying hypertension noted with severe concentric LVH on echo, otherwise normal LV function. BP trending down with amlodipine initiation but remains elevated today Increase amlodipine to 5 mg. Continue lisinopril. He has no cardiac symptoms. No ischemic changes noted on EKG and cardiac enzymes are unremarkable. No further cardiac testing warranted prior to planned GI procedures to evaluate the status of his metastatic neuroendocrine CA and elevated bilirubin Case discussed with Dr. Alexander Supervising Physician Co-Signing Physician Notes Patient seen and examined with Marbella Bains PA-C. Agree with findings and assessment as above. Echocardiographic findings reviewed with patient and his . No significant cardiac concerns at this time. In terms of preop risk patient is were counseled that he would be placed as a low risk for any adverse perioperative cardiovascular event for upcoming GI procedures with his risk being approximately less than 1%. There further counseled that no further cardiac testing intervention would further lower that risk. They state that they understand, they are accepting of that risk and wish to proceed. I see no need to delay from a cardiac standpoint. History of Present Illness Reason for Consultation: Hypertension; Preop; Abnormal EKG Requesting Physician: Dr. Rodriguez Attending Physician: Dr. Alexander History of Present Illness Patient is a 70-year-old male who has a past history significant for metastatic neuroendocrine carcinoma, hypertension, and type II DM. He was at PCP office yesterday and noted to be significantly jaundiced. He had an EKG completed which demonstrated NSR with RBBB and LAFB with old septal infarct. There were concerns regarding this conduction system change. he was subsequently sent to ER for evaluation and work up. Upon arrival to ER he was significantly hypertensive. Amlodipine was added for additional BP support. EKG demonstrated stable findings from outpatient with NSR and RBBB, LAFB. Cardiac enzymes unremarkable. his bilirubin and liver enzymes were significantly elevated concerning for possible obstruction. Apparently he has not had recent imaging of his abdomen to assess his cancer status. GI has been consulted for further evaluation. BP trending down this morning. At time of consult, patient is asymptomatic from a cardiac perspective. He denies recent chest pain or dyspnea. No palpitations Or tachy palpitations. No dizziness, syncope or near-syncope. No orthopnea, PND, lower extremity edema. Notes mild abdominal bloating. He denies any significant cardiac history including coronary disease, prior GA, CHF, valvular heart disease or arrhythmias. He had an echo in 2010 which was without significant abnormalities. He currently feels ok. Notes generalized weakness and abdominal bloating. Denies other symptoms. Allergies Allergy/AdvReac Type Severity Reaction Status Date / Time No Known Allergies Allergy Verified 11/14/20 17:59 Home Medications Medication Instructions Recorded Confirmed Type aspirin [Aspirin Low Dose] 81 mg PO QAM 11/14/20 11/14/20 History cholecalciferol (vitamin D3) 50 mcg PO QAM 11/14/20 11/14/20 History [Vitamin D3] insulin degludec [Tresiba 10 unit SUBCUT QAM 11/14/20 11/14/20 History FlexTouch U-100] lisinopril 40 mg PO QAM 11/14/20 11/14/20 History multivitamin 1 tab PO QAM 11/14/20 11/14/20 History omega-3 fatty acids [Arlee 3] 2,000 mg PO QAM 11/14/20 11/14/20 History sildenafil [Viagra] 20 mg PO DAILY PRN 11/14/20 11/14/20 History Patient History Medical History Benign neoplasm of colon Bifascicular block Diabetes mellitus, type 2 IDDM Hypertension Malignant carcinoid tumor of small intestine 2016, Follows with oncology (Dr. Melgar), s/p surgery plus monthly injection Neuroendocrine carcinoma metastatic to liver 2016, Follows with oncology (Dr. Melgar), s/p surgery plus monthly injection Surgical History History of appendectomy History of bowel resection small intestine and tumor removal History of cholecystectomy History of colonoscopy History of esophagogastroduodenoscopy (EGD) Social History Smoking Status: Current some day smoker Tobacco Type: Cigarettes Cigarettes Per Day: 1-2; Second Hand Exposure: No; Hx Alcohol Use: Yes Alcohol type: wine Hx Substance Use: No Preferred Language: Japanese Communication Ability: Effective Activities Director Required: No Beliefs That Will Affect Care: None Current Living Situation: Spouse Other Information That Helps Us Care for You: No Feels Safe at Home: Yes Safety Concerns: Feels Safe At This Time Assistive Devices: None Review of Systems Review of Systems: All systems reviewed & are unremarkable except as noted in HPI & below Physical Exam Constitutional: WD/WN, vitals as above + ill appearing; no acute distress Eyes: + scleral abnormality (yellow) ENMT: external ear and nose normal, oropharynx normal Neck: trachea midline, no thyromegaly Respiratory: normal respiratory effort, lungs clear to auscultation Cardiovascular: RRR, no murmur, no edema Gastrointestinal (Abdomen): Inspection/Auscultation: + abdomen distended Percussion/Palpation: + abdomen tender (mild diffuse) Musculoskeletal: no cyanosis or clubbing, extremities motor strength 5/5 Skin: + jaundice Neurologic: PERRL, EOMI, accommodation nl, no face palsy, no dysarthria Psychiatric: A+Ox3, euthymic affect Results & Data ([facility]) Vital Signs (Past 12 Hours) Vital Signs Temp Pulse Pulse Resp BP BP Pulse Ox 11/15/20 11:06 36.4 C L 74 18 156/77 H 99 11/15/20 07:22 36.8 C 61 18 160/70 H 99 11/15/20 03:33 36.9 C 67 16 151/62 H 97 11/15/20 00:44 148/72 H 11/15/20 00:06 36.5 C 59 L 18 170/68 H 99 Laboratory Results 11/15/20 11/15/20 11/15/20 Range/Units 11:24 11:05 08:33 WBC (4.8-10.8) K/uL RBC (4.7-6.1) M/uL Hgb (14.0-18.0) g/dL Hct (42-52) % MCV (80-100) fL MCH (25-34) pg MCHC (32-36) g/dL RDW Std Deviation (36.4-46.3) fL RDW Coeff of Gumaro (11.5-14.5) % Plt Count (130-400) K/uL MPV (7.4-10.4) fL Immature Gran % (Auto) % Neut % (Auto) % Lymph % (Auto) % [place] % (Auto) % Eos % (Auto) % Baso % (Auto) % Neut # (Auto) (1.4-6.5) K/uL Lymph # (Auto) (1.2-3.4) K/uL [place] # (Auto) (0.11-0.59) K/uL Eos # (Auto) (0-0.5) K/uL Baso # (Auto) (0-0.2) K/uL Immature Gran # (Auto) (0.00-0.02) K/uL PT 11.2 (9.0-12.0) Seconds INR 1.1 (0.9-1.1) Sodium (136-145) mmol/L Potassium (3.5-5.1) mmol/L Chloride (98-107) mmol/L Carbon Dioxide (21-32) mmol/L Anion Gap (3-11) BUN (7-18) mg/dl Creatinine (0.6-1.4) mg/dl Est Cr Clr Drug Dosing ml/min Est GFR ( Amer) Est GFR (Non-Af Amer) BUN/Creatinine Ratio (10-20) Glucose (70-99) mg/dl POC Glucose 205 H (70-99) mg/dl Calcium (8.5-10.1) mg/dl Magnesium (1.8-2.4) mg/dl Total Bilirubin (0.2-1) mg/dl AST (15-37) U/L ALT (12-78) U/L Alkaline Phosphatase (45-117) U/L Troponin I 0.030 (0-0.045) ng/ml Total Protein (6.4-8.2) gm/dl Albumin (3.4-5.0) gm/dl Globulin (2.5-4.0) gm/dl Albumin/Globulin Ratio (0.9-2) Lipase (73-393) U/L COVID-19 Eval Order SARS-CoV-2 (PCR) (Negative) Influenza Type A (PCR) (Neg) Influenza Type B (PCR) (Neg) RSV (RT-PCR) (Neg) 11/15/20 11/15/20 11/15/20 Range/Units 06:13 05:44 05:44 WBC 4.85 (4.8-10.8) K/uL RBC 3.66 L (4.7-6.1) M/uL Hgb 12.1 L (14.0-18.0) g/dL Hct 35.2 L (42-52) % MCV 96.2 (80-100) fL MCH 33.1 (25-34) pg MCHC 34.4 (32-36) g/dL RDW Std Deviation 48.4 H (36.4-46.3) fL RDW Coeff of Gumaro 13.7 (11.5-14.5) % Plt Count 156 (130-400) K/uL MPV 12.4 H (7.4-10.4) fL Immature Gran % (Auto) 0.2 % Neut % (Auto) 59.6 % Lymph % (Auto) 25.6 % [place] % (Auto) 12.6 % Eos % (Auto) 1.6 % Baso % (Auto) 0.4 % Neut # (Auto) 2.89 (1.4-6.5) K/uL Lymph # (Auto) 1.24 (1.2-3.4) K/uL [place] # (Auto) 0.61 H (0.11-0.59) K/uL Eos # (Auto) 0.08 (0-0.5) K/uL Baso # (Auto) 0.02 (0-0.2) K/uL Immature Gran # (Auto) 0.01 (0.00-0.02) K/uL PT (9.0-12.0) Seconds INR (0.9-1.1) Sodium 136 (136-145) mmol/L Potassium 3.6 D (3.5-5.1) mmol/L Chloride 105 (98-107) mmol/L Carbon Dioxide 25 (21-32) mmol/L Anion Gap 6.0 (3-11) BUN 16 (7-18) mg/dl Creatinine 0.87 (0.6-1.4) mg/dl Est Cr Clr Drug Dosing 77.6 ml/min Est GFR ( Amer) 101.3 Est GFR (Non-Af Amer) 87.4 BUN/Creatinine Ratio 18.1 (10-20) Glucose 242 H (70-99) mg/dl POC Glucose 243 H (70-99) mg/dl Calcium 8.6 (8.5-10.1) mg/dl Magnesium (1.8-2.4) mg/dl Total Bilirubin 6.9 H (0.2-1) mg/dl AST 144 H (15-37) U/L ALT 156 H (12-78) U/L Alkaline Phosphatase 647 H (45-117) U/L Troponin I (0-0.045) ng/ml Total Protein 6.3 L (6.4-8.2) gm/dl Albumin 2.9 L (3.4-5.0) gm/dl Globulin 3.4 (2.5-4.0) gm/dl Albumin/Globulin Ratio 0.9 (0.9-2) Lipase (73-393) U/L COVID-19 Eval Order SARS-CoV-2 (PCR) (Negative) Influenza Type A (PCR) (Neg) Influenza Type B (PCR) (Neg) RSV (RT-PCR) (Neg) 11/14/20 11/14/20 11/14/20 Range/Units 22:46 19:24 19:24 WBC (4.8-10.8) K/uL RBC (4.7-6.1) M/uL Hgb (14.0-18.0) g/dL Hct (42-52) % MCV (80-100) fL MCH (25-34) pg MCHC (32-36) g/dL RDW Std Deviation (36.4-46.3) fL RDW Coeff of Gumaro (11.5-14.5) % Plt Count (130-400) K/uL MPV (7.4-10.4) fL Immature Gran % (Auto) % Neut % (Auto) % Lymph % (Auto) % [place] % (Auto) % Eos % (Auto) % Baso % (Auto) % Neut # (Auto) (1.4-6.5) K/uL Lymph # (Auto) (1.2-3.4) K/uL [place] # (Auto) (0.11-0.59) K/uL Eos # (Auto) (0-0.5) K/uL Baso # (Auto) (0-0.2) K/uL Immature Gran # (Auto) (0.00-0.02) K/uL PT (9.0-12.0) Seconds INR (0.9-1.1) Sodium (136-145) mmol/L Potassium (3.5-5.1) mmol/L Chloride (98-107) mmol/L Carbon Dioxide (21-32) mmol/L Anion Gap (3-11) BUN (7-18) mg/dl Creatinine (0.6-1.4) mg/dl Est Cr Clr Drug Dosing ml/min Est GFR ( Amer) Est GFR (Non-Af Amer) BUN/Creatinine Ratio (10-20) Glucose (70-99) mg/dl POC Glucose 207 H (70-99) mg/dl Calcium (8.5-10.1) mg/dl Magnesium (1.8-2.4) mg/dl Total Bilirubin (0.2-1) mg/dl AST (15-37) U/L ALT (12-78) U/L Alkaline Phosphatase (45-117) U/L Troponin I (0-0.045) ng/ml Total Protein (6.4-8.2) gm/dl Albumin (3.4-5.0) gm/dl Globulin (2.5-4.0) gm/dl Albumin/Globulin Ratio (0.9-2) Lipase (73-393) U/L COVID-19 Eval Order CovFluRsv at [facility] SARS-CoV-2 (PCR) NEGATIVE (Negative) Influenza Type A (PCR) Negative (Neg) Influenza Type B (PCR) Negative (Neg) RSV (RT-PCR) Negative (Neg) 11/14/20 11/14/20 Range/Units 17:35 17:35 WBC 5.54 (4.8-10.8) K/uL RBC 3.76 L (4.7-6.1) M/uL Hgb 12.9 L (14.0-18.0) g/dL Hct 36.4 L (42-52) % MCV 96.8 (80-100) fL MCH 34.3 H (25-34) pg MCHC 35.4 (32-36) g/dL RDW Std Deviation 49.1 H (36.4-46.3) fL RDW Coeff of Gumaro 13.8 (11.5-14.5) % Plt Count 162 (130-400) K/uL MPV 12.3 H (7.4-10.4) fL Immature Gran % (Auto) 0.5 % Neut % (Auto) 60.9 % Lymph % (Auto) 26.7 % [place] % (Auto) 9.6 % Eos % (Auto) 1.8 % Baso % (Auto) 0.5 % Neut # (Auto) 3.37 (1.4-6.5) K/uL Lymph # (Auto) 1.48 (1.2-3.4) K/uL [place] # (Auto) 0.53 (0.11-0.59) K/uL Eos # (Auto) 0.10 (0-0.5) K/uL Baso # (Auto) 0.03 (0-0.2) K/uL Immature Gran # (Auto) 0.03 H (0.00-0.02) K/uL PT (9.0-12.0) Seconds INR (0.9-1.1) Sodium 133 L (136-145) mmol/L Potassium 4.7 (3.5-5.1) mmol/L Chloride 102 (98-107) mmol/L Carbon Dioxide 26 (21-32) mmol/L Anion Gap 5.0 (3-11) BUN 23 H (7-18) mg/dl Creatinine 1.07 (0.6-1.4) mg/dl Est Cr Clr Drug Dosing 63.5 ml/min Est GFR ( Amer) 81.1 Est GFR (Non-Af Amer) 70.0 BUN/Creatinine Ratio 21.3 H (10-20) Glucose 275 H (70-99) mg/dl POC Glucose (70-99) mg/dl Calcium 9.5 (8.5-10.1) mg/dl Magnesium 1.8 (1.8-2.4) mg/dl Total Bilirubin 7.2 H (0.2-1) mg/dl AST 118 H (15-37) U/L ALT 156 H (12-78) U/L Alkaline Phosphatase 653 H (45-117) U/L Troponin I 0.026 (0-0.045) ng/ml Total Protein 7.2 (6.4-8.2) gm/dl Albumin 3.5 (3.4-5.0) gm/dl Globulin 3.7 (2.5-4.0) gm/dl Albumin/Globulin Ratio 0.9 (0.9-2) Lipase 98 (73-393) U/L COVID-19 Eval Order SARS-CoV-2 (PCR) (Negative) Influenza Type A (PCR) (Neg) Influenza Type B (PCR) (Neg) RSV (RT-PCR) (Neg) Diagnostic Findings Telemetry reviewed: NSR, conduction delay. no arrhythmias Echo report reviewed completed earlier today: Normal LV chamber size with severe concentric LVH. Normal LV systolic function with ejection fraction 55-60%. Abnormal septal wall motion consistent with interventricular conduction delay otherwise normal wall motion. Grade 1 diastolic dysfunction. Focal calcification of the right coronary cusp suggestive of old healed vegetation. Mild left atrial enlargement. EKG on admission: Normal sinus rhythm Right bundle branch block Left anterior fascicular block Bifascicular block Minimal voltage criteria for LVH, may be normal variant Septal infarct , age undetermined compared to prior EKG, RBBB/LAFB is new Medications Administered Medications aspirin [Aspirin Low Dose] 81 mg PO QAM 11/14/20 [History Confirmed 11/14/20] cholecalciferol (vitamin D3) [Vitamin D3] 50 mcg PO QAM 11/14/20 [History Con firmed 11/14/20] insulin degludec [Tresiba FlexTouch U-100] 10 unit SUBCUT QAM 11/14/20 [History Confirmed 11/14/20] lisinopril 40 mg PO QAM 11/14/20 [History Confirmed 11/14/20] multivitamin 1 tab PO QAM 11/14/20 [History Confirmed 11/14/20] omega-3 fatty acids [Arlee 3] 2,000 mg PO QAM 11/14/20 [History Confirmed 11/14/20] sildenafil [Viagra] 20 mg PO DAILY PRN 11/14/20 [History Confirmed 11/14/20] Home Medications Acetaminophen (Acetaminophen 325 Mg Tab) 325 mg PO Q6H PRN PRN Reason: Mild Pain Stop: 12/14/20 22:37 Amlodipine Besylate (Amlodipine Besylate 5 Mg Tab) 2.5 mg PO JADE Stop: 12/14/20 22:37 Last Admin: 11/14/20 23:27 Dose: 2.5 mg Documented by: Aspirin (Aspirin 81 Mg Ectab) 81 mg PO QAM JADE Stop: 12/15/20 08:59 Last Admin: 11/15/20 08:21 Dose: 81 mg Documented by: Dextrose (Dextrose 50% 50 Ml Syringe) 25 - 50 ml IV UD PRN; Protocol PRN Reason: Hypoglycemia Protocol Stop: 12/14/20 22:37 Enoxaparin Sodium (Enoxaparin Inj 30 Mg/0.3 Ml Syr) 30 mg SQ QAM JADE Stop: 12/15/20 08:59 Last Admin: 11/15/20 08:21 Dose: 30 mg Documented by: Glucagon (Glucagon For Inj 1 Mg Vial) 1 mg SQ UD PRN; Protocol PRN Reason: Hypoglycemia Protocol Stop: 12/14/20 22:37 Glucose (Glucose 10 Tabs/Tube) 4 - 8 tabs PO UD PRN; Protocol PRN Reason: Hypoglycemia Protocol Stop: 12/14/20 22:37 Glucose (Glucose 40% Gel 15 Gm Tube) 15 - 30 gm PO UD PRN; Protocol PRN Reason: Hypoglycemia Protocol Stop: 12/14/20 22:37 Sodium Chloride (Nss 1000ml) 1,000 mls @ 50 mls/hr IV .Q20H JADE Stop: 12/15/20 00:00 Last Admin: 11/14/20 23:28 Dose: 50 mls/hr Documented by: Lorazepam (Ativan) 0.5 mg in 1 mls @ 1 mls/min IV Q4H PRN PRN Reason: Anxiety/Agitation Stop: 12/14/20 22:37 Promethazine HCl 6.25 mg/ (Sodium Chloride) 50.25 mls @ 201 mls/hr IV Q6H PRN PRN Reason: Nausea And Vomiting Stop: 12/14/20 22:37 Insulin Aspart (Insulin Aspart 100 Units/Ml 3 Ml Pen) 0 units SC Q6 JADE Stop: 12/14/20 22:59 Last Admin: 11/15/20 12:10 Dose: 3 units Documented by: Insulin Glargine (Insulin Glargine Solostar 100 Units/Ml 3 Ml Pen) 10 units SQ HS [facility] Stop: 12/15/20 20:59 Lisinopril (Lisinopril 40 Mg Tab) 40 mg PO QAM JADE Stop: 12/15/20 08:59 Last Admin: 11/15/20 08:21 Dose: 40 mg Documented by: Miscellaneous (Carbohydrates For Hypoglycemia ) 15 - 30 gm PO UD PRN PRN Reason: Hypoglycemia Protocol Stop: 12/14/20 22:37 Multivitamins (Multivitamin Tab) [facility] [place] Stop: 12/15/20 08:59 Last Admin: 11/15/20 08:21 Dose: 1 tab Documented by: Oxycodone HCl (Oxycodone Hcl Ir 5 Mg Tab (Immediate Release)) 5 mg PO Q4H PRN PRN Reason: Pain Stop: 11/28/20 22:37
--- NOTE | 2020-11-15 12:39 | Hospitalist Progress Note ---
Date of Service November 15, 2020 Assessment & Plan (1) Elevated bilirubin: Possibly with obstructive jaundice. MRCP revealed possible kinking of the distal common bile duct. There was mild intra and extrahepatic biliary ductal dilatation with a 7mm CBD. No ductal filling defects were seen. A further liver CT was then performed revealing post surgical changes from a left hepatic lobe resection, no focal livers masses, and questioned the possibility of autoimmune pancreatitis in the differential. Further investigation into the cause planned with an EUS in am per GI provider. NPO p MN for this. (2) Transaminitis: Possibly related to obstructive hepatopathy. Further workup in am per plan above. (3) Neuroendocrine carcinoma metastatic to liver: Neuroendocrine carcinoma involving the liver, primary site involving the small intestine, diagnosed May 2016. He has undergone treatment including resection of the small intestine, right sided colon, s/p cholecystectomy, and s/p resection of the left lobe of the liver. He remains currently on monthly injections of octreotide and is managed by his oncologist, Dr. Austin Melgar. (4) Asymptomatic hypertensive urgency: Improved on home lisinopril 40mg daily with amlodipine 5mg daily added this admission. (5) Diabetes mellitus, type 2: New diagnosis and started on Tresiba as outpatient but hasn't picked this up yet. Currently receiving basal/bolus insulin while inpatient. (6) DVT prophylaxis: Lovenox with am dose held in preparation for procedure in am. Full Code Dispo-cont to monitor on telemetry for the time being. Expect he will be home when medically stable and cleared from a GI standpoint. Mikaela Rolle DO [facility] Hospitalist Admission and Anticipated Discharge Date Admission Date: November 14, 2020 Subjective 70 yo M with metastatic neuroendocrine tumor of the small intestine with bone and liver mets s/p surgery on chronic Sandostatin tx admitted with hypertensive urgency and new-onset obstructive jaundice with h/o weight loss MRCP today and plan for EUS in am per GI team patient continues to have painless jaundice as he has for several weeks now he denies abdominal pain he is tolerating PO Review of Systems Review of Systems: All systems reviewed & are unremarkable except as noted in Subjective Physical Exam Physical Exam: CONSTITUTIONAL: thin build, vitals as above, generally well- appearing EYES: normal conjunctivae, +icteric sclerae ENT: external ear and nose normal, MMM RESPIRATORY: clear to auscultation bilaterally, no crackles, rales or wheezes, normal respiratory effort CARDIOVASCULAR: regular rate and rhythm, S1 and 2 heard without murmurs, gallops or rubs, no JVD, no peripheral edema GASTROINTESTINAL: soft, nontender, nondistended. Well-healed surgical scars. MUSCULOSKELETAL: strength 5/5 throughout, head is normocephalic and atraumatic SKIN: warm and dry, +jaundice NEUROLOGIC: CN 2-12 grossly intact, normal cognition, normal speech, no tremor. No gross focal deficits. PSYCHIATRIC: alert cooperative and oriented to person, place and time. Results & Data Results & Data ([facility]) Vital Signs (Past 12 Hours) Vital Signs Temp Pulse Pulse Resp BP Pulse Ox 11/15/20 11:06 36.4 C L 74 18 156/77 H 99 11/15/20 07:22 36.8 C 61 18 160/70 H 99 11/15/20 03:33 36.9 C 67 16 151/62 H 97 11/15/20 00:44 148/72 H Laboratory Results Short CBC 11/14/20 11/15/20 Range/Units 17:35 05:44 WBC 5.54 4.85 (4.8-10.8) K/uL Hgb 12.9 L 12.1 L (14.0-18.0) g/dL Hct 36.4 L 35.2 L (42-52) % Plt Count 162 156 (130-400) K/uL BMP 11/14/20 11/15/20 17:35 05:44 Sodium 133 L 136 Potassium 4.7 3.6 D Chloride 102 105 Carbon Dioxide 26 25 BUN 23 H 16 Creatinine 1.07 0.87 Glucose 275 H 242 H Calcium 9.5 8.6 Cardiac Enzymes 11/14/20 11/15/20 Range/Units 17:35 11:24 Troponin I 0.026 0.030 (0-0.045) ng/ml Liver Function 11/14/20 11/15/20 Range/Units 17:35 05:44 Total Bilirubin 7.2 H 6.9 H (0.2-1) mg/dl AST 118 H 144 H (15-37) U/L ALT 156 H 156 H (12-78) U/L Alkaline Phosphatase 653 H 647 H (45-117) U/L Albumin 3.5 2.9 L (3.4-5.0) gm/dl Medications Administered Current Inpatient Medications Acetaminophen (Acetaminophen 325 Mg Tab) 325 mg PO Q6H PRN PRN Reason: Mild Pain Stop: 12/14/20 22:37 Amlodipine Besylate (Amlodipine Besylate 5 Mg Tab) 2.5 mg PO HS [facility] Stop: 12/14/20 22:37 Last Admin: 11/14/20 23:27 Dose: 2.5 mg Documented by: Aspirin (Aspirin 81 Mg Ectab) 81 mg PO QAM JADE Stop: 12/15/20 08:59 Last Admin: 11/15/20 08:21 Dose: 81 mg Documented by: Dextrose (Dextrose 50% 50 Ml Syringe) 25 - 50 ml IV UD PRN; Protocol PRN Reason: Hypoglycemia Protocol Stop: 12/14/20 22:37 Enoxaparin Sodium (Enoxaparin Inj 30 Mg/0.3 Ml Syr) 30 mg SQ QAM [facility] Stop: 12/15/20 08:59 Last Admin: 11/15/20 08:21 Dose: 30 mg Documented by: Glucagon (Glucagon For Inj 1 Mg Vial) 1 mg SQ UD PRN; Protocol PRN Reason: Hypoglycemia Protocol Stop: 12/14/20 22:37 Glucose (Glucose 10 Tabs/Tube) 4 - 8 tabs PO UD PRN; Protocol PRN Reason: Hypoglycemia Protocol Stop: 12/14/20 22:37 Glucose (Glucose 40% Gel 15 Gm Tube) 15 - 30 gm PO UD PRN; Protocol PRN Reason: Hypoglycemia Protocol Stop: 12/14/20 22:37 Sodium Chloride (Nss 1000ml) 1,000 mls @ 50 mls/hr IV .Q20H JADE Stop: 12/15/20 00:00 Last Admin: 11/14/20 23:28 Dose: 50 mls/hr Documented by: Lorazepam (Ativan) 0.5 mg in 1 mls @ 1 mls/min IV Q4H PRN PRN Reason: Anxiety/Agitation Stop: 12/14/20 22:37 Promethazine HCl 6.25 mg/ (Sodium Chloride) 50.25 mls @ 201 mls/hr IV Q6H PRN PRN Reason: Nausea And Vomiting Stop: 12/14/20 22:37 Insulin Aspart (Insulin Aspart 100 Units/Ml 3 Ml Pen) 0 units SC Q6 JADE Stop: 12/14/20 22:59 Last Admin: 11/15/20 12:10 Dose: 3 units Documented by: Insulin Glargine (Insulin Glargine Solostar 100 Units/Ml 3 Ml Pen) 10 units SQ HS [facility] Stop: 12/15/20 20:59 Lisinopril (Lisinopril 40 Mg Tab) 40 mg PO QAM [facility] Stop: 12/15/20 08:59 Last Admin: 11/15/20 08:21 Dose: 40 mg Documented by: Miscellaneous (Carbohydrates For Hypoglycemia ) 15 - 30 gm PO UD PRN PRN Reason: Hypoglycemia Protocol Stop: 12/14/20 22:37 Multivit[facility] ([facility]itamin Tab) [facility] [place] Stop: 12/15/20 08:59 Last Admin: 11/15/20 08:21 Dose: 1 tab Documented by: Oxycodone HCl (Oxycodone Hcl Ir 5 Mg Tab (Immediate Release)) 5 mg PO Q4H PRN PRN Reason: Pain Stop: 11/28/20 22:37
--- NOTE | 2020-11-15 14:07 | Magnetic Resonance Report ---
MR MRCP CLINICAL HISTORY: obstructive jaundice, hx met CA, COMPARISON STUDY: None FINDINGS: A breath-hold MRCP was performed. MIP images were acquired. The gallbladder is not visualized and is presumed surgically absent. The patient appears be status post a left hepatic lobe resection.. The common bile duct has a horizon elder course. There is a long cystic duct remnant. There is mild dilatation of the common bile duct whi ch measures 7 mm. There is mild intrahepatic biliary ductal dilatation. No ductal filling defects are visualized. Given the distorted anatomy from the left sided hepatectomy it is conceivable that the d istal common bile duct kinks slightly at its ampullary insertion. There is very mild prominence of the distal pancreatic duct. IMPRESSION: 1. Postsurgical changes of a prior left hepatic lobe resection 2. Postsurgical changes are prior cholecystectomy 3. Horizontal course of the common bile duct. Long cystic duct remnant. Mild intra and extrahepatic b iliary ductal dilatation with a 7 mm common bile duct. No ductal filling defects identified. ACT 112: Negative or not required by law. Electronically signed by: Chan Turner M.D. 11/15/2020 2:06 PM
[2020-11-15] MEDS ORDERED: OPTIRAY 320 100ml IV ONE (15:22)
--- NOTE | 2020-11-15 15:42 | CT Scan Report ---
CT liver wo/w con CT DOSE: 527.97 mGy.cm CLINICAL HISTORY: Metastatic carcinoma. TECHNIQUE: Unenhanced images were obtained through the abdomen. The patient was then scanned in a [facility] helical fashion during intravenous administration of 91 cc of Optiray 320. Arterial phase and po rtal phase imaging was performed. A dose lowering technique was utilized adhering to the principles of ALARA. COMPARISON STUDY: None. FINDINGS: Equivocal 4 mm right lower lobe pulmonary nodule abutting the diaphragmatic surface on axial images, appears pancaked likely on sagittal and coronal reformatted images. This is therefore unlikely to be of clinical significance. There are postsurgical changes of a left lobe hepatic resection. No hepatic masses are visualized. Th ere is minimal biliary ductal prominence. The gallbladder is surgically absent. No splenic masses are visualized. There is minimal prominence of the pancreas duct within the distal body and tail. The pancreas lacks the normal interdigitations. This is a nonspecific finding. Autoimmune pancreatitis cannot be exclude d. No adrenal masses are visualized. No solid renal masses are visualized. There is no pathologic upper abdominal lymphadenopathy. IMPRESSION: 1. Postsurgical changes of a left hepatic lobe resection 2. No focal hepatic masses 3. Very minimal biliary ductal prominence 4. Minimal prominence of the pancreatic duct within the distal body and tail. The pancreas lacks abno rmal indentations. This is a nonspecific finding. Autoimmune pancreatitis cannot be excluded 5. No evidence of pathologic upper abdominal lymphadenopathy ACT 112: Negative or not required by law. Electronically signed by: Chan Turner M.D. 11/15/2020 3:40 PM
[2020-11-15] MEDS: amLODIPine BESYLATE 5 MG TAB PO SCH (15:54)
--- NOTE | 2020-11-15 16:33 | Electrocardiogram Report ---
Test Reason : Blood Pressure : / mmHG Vent. Rate : 064 BPM Atrial Rate : 064 BPM P-R Int : 200 ms QRS Dur : 144 ms QT Int : 434 ms P-R-T Axes : 094 -55 039 degrees QTc Int : 447 ms Sinus rhythm with Premature atrial complexes Right bundle branch block Left anterior fascicular block Bifascicular block Moderate voltage criteria for LVH, may be normal variant Abnormal ECG When compared with ECG of 14-NOV-2020 16:29, (unconfirmed) Premature atrial complexes are now Present Inverted T waves have replaced nonspecific T wave abnormality in Lateral leads Confirmed by Lavon Dahl ([id number]) on 11/15/2020 4:33:15 PM Referred By: Kevin Melgar Confirmed By:John Dahl
--- NOTE | 2020-11-15 16:34 | Electrocardiogram Report ---
Test Reason : Blood Pressure : / mmHG Vent. Rate : 061 BPM Atrial Rate : 061 BPM P-R Int : 194 ms QRS Dur : 142 ms QT Int : 438 ms P-R-T Axes : 096 -55 038 degrees QTc Int : 440 ms Normal sinus rhythm Right bundle branch block Left anterior fascicular block Bifascicular block Minimal voltage criteria for LVH, may be normal variant Abnormal ECG When compared with ECG of 04-MAR-2016 03:05, (RBBB and left anterior fascicular block) is now Present Confirmed by Lavon Dahl ([id number]) on 11/15/2020 4:34:01 PM Referred By: Kevin Melgar Confirmed By:John Dahl
[2020-11-15] MEDS: SODIUM CHLORIDE 0.9% 1000ML 1,000 ML IV SCH (20:11)
[2020-11-15] MEDS ORDERED: INSULIN ASPART 100 UNITS/ML 3 ML PEN SC SCH (21:00)
[2020-11-15] MEDS ORDERED: INSULIN GLARGINE SOLOSTAR 100 UNITS/ML 3 ML PEN SQ SCH ×2 (21:00)
[2020-11-16] MEDS: INSULIN ASPART 100 UNITS/ML 3 ML PEN SC SCH ×2 (06:05→13:30)
[2020-11-16] MEDS: MULTIVITAMIN TAB PO SCH (08:18)
[2020-11-16] MEDS: ASPIRIN 81 MG ECTAB PO SCH (08:18)
[2020-11-16] MEDS: amLODIPine BESYLATE 5 MG TAB PO SCH (08:18)
[2020-11-16] MEDS: lisinopril 40 MG TAB PO SCH (08:18)
--- NOTE | 2020-11-16 09:50 | Hospitalist Progress Note ---
Date of Service November 16, 2020 Assessment & Plan (1) Elevated bilirubin: Possibly with obstructive jaundice but still uncertain etiology. MRCP revealed possible kinking of the distal common bile duct. There was mild intra and extrahepatic biliary ductal dilatation with a 7mm CBD. No ductal filling defects were seen. A further liver CT was then performed revealing post surgical changes from a left hepatic lobe resection, no focal livers masses, and questioned the possibility of autoimmune pancreatitis in the differential. Further investigation into the cause planned with an EUS in am per GI provider. NPO for this procedure planned for this afternoon. (2) Transaminitis: Possibly related to obstructive hepatopathy. Further workup in am per plan above. (3) Neuroendocrine carcinoma metastatic to liver: Neuroendocrine carcinoma involving the liver, primary site involving the small intestine, diagnosed May 2016. He has undergone treatment including resection of the small intestine, right sided colon, s/p cholecystectomy, and s/p resection of the left lobe of the liver. He remains currently on monthly injections of octreotide and is managed by his oncologist, Dr. Austin Melgar. (4) Asymptomatic hypertensive urgency: Improved on home lisinopril 40mg daily with amlodipine 5mg daily added this admission. (5) Diabetes mellitus, type 2: New diagnosis and started on Tresiba as outpatient but hasn't picked this up yet. Currently receiving basal/bolus insulin while inpatient. (6) DVT prophylaxis: Lovenox with am dose held in preparation for procedure today Full Code Dispo-discontinue tele monitoring at this point. 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 s/p surgery on chronic Sandostatin tx admitted with hypertensive urgency and new-onset obstructive jaundice with h/o weight loss denies abdominal pain NPO status awaiting EUS procedure per GI today BP improved overnight after addition of amlodipine Review of Systems Review of Systems: All systems reviewed & are unremarkable except as noted in Subjective Physical Exam Physical Exam: CONSTITUTIONAL: thin build, vitals as above, generally well- appearing EYES: normal conjunctivae, +icteric sclerae ENT: external ear and nose normal, MMM RESPIRATORY: clear to auscultation bilaterally, no crackles, rales or wheezes, normal respiratory effort CARDIOVASCULAR: regular rate and rhythm, S1 and 2 heard without murmurs, gallops or rubs, no JVD, no peripheral edema GASTROINTESTINAL: soft, nontender, nondistended. Well-healed surgical scars. MUSCULOSKELETAL: strength 5/5 throughout, head is normocephalic and atraumatic SKIN: warm and dry, +jaundice NEUROLOGIC: CN 2-12 grossly intact, normal cognition, normal speech, no tremor. No gross focal deficits. PSYCHIATRIC: alert cooperative and oriented to person, place and time. Results & Data Results & Data ([facility]) Vital Signs (Past 12 Hours) Vital Signs Temp Pulse Pulse Resp BP BP Pulse Ox 11/16/20 08:45 36.5 C 60 20 146/71 H 99 11/16/20 04:08 36.7 C 59 L 16 180/75 H 98 11/16/20 00:32 36.7 C 58 L 16 170/79 H 98 Laboratory Results Cardiac Enzymes 11/15/20 Range/Units 11:24 Troponin I 0.030 (0-0.045) ng/ml Medications Administered Current Inpatient Medications Acetaminophen (Acetaminophen 325 Mg Tab) 325 mg PO Q6H PRN PRN Reason: Mild Pain Stop: 12/14/20 22:37 Amlodipine Besylate (Amlodipine Besylate 5 Mg Tab) 5 mg PO QAM [facility] Stop: 12/15/20 13:29 Last Admin: 11/16/20 08:18 Dose: 5 mg Documented by: Aspirin (Aspirin 81 Mg Ectab) 81 mg PO QAM [facility] Stop: 12/15/20 08:59 Last Admin: 11/16/20 08:18 Dose: 81 mg Documented by: Dextrose (Dextrose 50% 50 Ml Syringe) 25 - 50 ml IV UD PRN; Protocol PRN Reason: Hypoglycemia Protocol Stop: 12/14/20 22:37 Enoxaparin Sodium (Enoxaparin Inj 30 Mg/0.3 Ml Syr) 30 mg SQ QAM JADE Stop: 12/15/20 08:59 Last Admin: 11/15/20 08:21 Dose: 30 mg Documented by: Glucagon (Glucagon For Inj 1 Mg Vial) 1 mg SQ UD PRN; Protocol PRN Reason: Hypoglycemia Protocol Stop: 12/14/20 22:37 Glucose (Glucose 10 Tabs/Tube) 4 - 8 tabs PO UD PRN; Protocol PRN Reason: Hypoglycemia Protocol Stop: 12/14/20 22:37 Glucose (Glucose 40% Gel 15 Gm Tube) 15 - 30 gm PO UD PRN; Protocol PRN Reason: Hypoglycemia Protocol Stop: 12/14/20 22:37 Lorazepam (Ativan) 0.5 mg in 1 mls @ 1 mls/min IV Q4H PRN PRN Reason: Anxiety/Agitation Stop: 12/14/20 22:37 Promethazine HCl 6.25 mg/ (Sodium Chloride) 50.25 mls @ 201 mls/hr IV Q6H PRN PRN Reason: Nausea And Vomiting Stop: 12/14/20 22:37 Insulin Aspart (Insulin Aspart 100 Units/Ml 3 Ml Pen) 0 units SC Q6 [facility] Stop: 12/16/20 05:59 Last Admin: 11/16/20 06:05 Dose: 3 units Documented by: Insulin Glargine (Insulin Glargine Solostar 100 Units/Ml 3 Ml Pen) 15 units SQ HS [facility] Stop: 12/15/20 20:59 Last Admin: 11/15/20 21:05 Dose: 15 units Documented by: Lisinopril (Lisinopril 40 Mg Tab) [facility] Stop: 12/15/20 08:59 Last Admin: 11/16/20 08:18 Dose: 40 mg Documented by: Miscellaneous (Carbohydrates For Hypoglycemia ) 15 - 30 gm PO UD PRN PRN Reason: Hypoglycemia Protocol Stop: 12/14/20 22:37 Multivitamins (Multivitamin Tab) 1 tab [facility] Stop: 12/15/20 08:59 Last Admin: 11/16/20 08:18 Dose: 1 tab Documented by: Oxycodone HCl (Oxycodone Hcl Ir 5 Mg Tab (Immediate Release)) 5 mg PO Q4H PRN PRN Reason: Pain Stop: 11/28/20 22:37
[2020-11-16] MEDS ORDERED: ATROPINE SULFATE 0.1 MG/ML 10ML SYR IV PRN (10:27)
[2020-11-16] MEDS ORDERED: fentaNYL citrate 100 MCG/2 ML VIAL IV PRN (10:27)
[2020-11-16] MEDS ORDERED: HYDROmorphone INJ 2 MG/ML SYR/VIAL IV PRN (10:27)
[2020-11-16] MEDS ORDERED: ePHEDrine sulfate 50 MG/ML AMP IV PRN (10:27)
[2020-11-16] MEDS ORDERED: ONDANSETRON INJ 2 MG/ML 2 ML VIAL IV PRN (10:27)
--- NOTE | 2020-11-16 10:27 | Anesthesiology Consultation ---
Date of Service November 16, 2020 Assessment & Plan ASA ASA3 Proposed Anesthesia Anesthesia Type: General Risk / Benefits Reviewed With: PT / POA / Parent / Guardian, Accepts Plan and Informed Consent Obtained History Surgery Operation Date: 11/16/20 12:20 Proposed Procedures p Endoscopic Ultrasonography Upper - Ruba Thompson DO s Endoscopic Retrograde Cholangiopancreatogram - Ruba Thompson DO Height/Weight Height: 6 ft 1 in Weight: 68.6 kg Allergies Allergy/AdvReac Type Severity Reaction Status Date / Time No Known Allergies Allergy Verified 11/14/20 17:59 Medications Home Medications Medication Instructions Recorded Confirmed Last Taken aspirin [Aspirin Low Dose] 81 mg PO QAM 11/14/20 11/14/20 Unknown cholecalciferol (vitamin D3) 50 mcg PO QAM 11/14/20 11/14/20 Unknown [Vitamin D3] insulin degludec [Tresiba 10 unit SUBCUT QAM 11/14/20 11/14/20 Unknown FlexTouch U-100] lisinopril 40 mg PO QAM 11/14/20 11/14/20 Unknown multivitamin 1 tab PO QAM 11/14/20 11/14/20 Unknown omega-3 fatty acids [Jackson 3] 2,000 mg PO QAM 11/14/20 11/14/20 Unknown sildenafil [Viagra] 20 mg PO DAILY PRN 11/14/20 11/14/20 Unknown Active Medications Generic Name Dose Route Start Last Admin Trade Name Freq PRN Reason Stop Dose Admin Amlodipine Besylate 5 mg 11/15/20 13:30 11/16/20 08:18 Amlodipine Besylate 5 Mg Tab PO 12/15/20 13:29 5 mg QAM JADE Administration Aspirin 81 mg 11/15/20 09:00 11/16/20 08:18 Aspirin 81 Mg Ectab PO 12/15/20 08:59 81 mg QAM JADE Administration Enoxaparin Sodium 30 mg 11/15/20 09:00 11/15/20 08:21 Enoxaparin Inj 30 Mg/0.3 Ml Syr SQ 12/15/20 08:59 30 mg QAM JADE Administration Insulin Aspart 0 units 11/16/20 06:00 11/16/20 06:05 Insulin Aspart 100 Units/Ml 3 Ml Pen SC 12/16/20 05:59 3 units Q6 JADE Administration Insulin Glargine 15 units 11/15/20 21:00 11/15/20 21:05 Insulin Glargine Solostar 100 Units/Ml 3 Ml Pen SQ 12/15/20 20:59 15 units HS JADE Administration Lisinopril 40 mg 11/15/20 09:00 11/16/20 08:18 Lisinopril 40 Mg Tab PO 12/15/20 08:59 40 mg QAM JADE Administration Multivitamins 1 tab 11/15/20 09:00 11/16/20 08:18 Multivitamin Tab PO 12/15/20 08:59 1 tab QAM JADE Administration NPO Date Last Intake of Fluids: 11/16/20 Time Last Intake of Fluids: 00:00 Date Last Intake of Solids: 11/16/20 Time Last Intake of Solids: 00:00 Past Medical History Medical History Benign neoplasm of colon Bifascicular block Diabetes mellitus, type 2 IDDM Hypertension Malignant carcinoid tumor of small intestine 2016, Follows with oncology (Dr. Melgar), s/p surgery plus monthly injection Neuroendocrine carcinoma metastatic to liver 2016, Follows with oncology (Dr. Melgar), s/p surgery plus monthly injection Exercise / Class Metabolic Activity II 4-5 Yardwork/Stairs/Walk up hill Past Surgical History Surgical History History of appendectomy History of bowel resection small intestine and tumor removal History of cholecystectomy History of colonoscopy History of esophagogastroduodenoscopy (EGD) Past Anesthesia History No Hx of Anesthesia Complications and No Family Hx of Anesthesia Complications History of PONV No Hx of PONV and No Hx of Motion Sickness Social History Smoking Status: Current some day smoker tobacco type: cigarettes Smoking cigarettes per day: 1-2 Hx Alcohol Use: Yes Alcohol type: wine alcohol intake frequency: 0-2 drinks per day Hx Substance Use: No substance use type: does not use Review of Systems denies fever/cough/ colds/ chest pain/ SOB/ JERSON denies JERSON Physical Exam Vital Signs Last Vital Signs Temp 36.5 C 11/16/20 08:45 Pulse 60 11/16/20 08:45 Resp 20 11/16/20 08:45 BP 146/71 H 11/16/20 08:45 Pulse Ox 99 11/16/20 08:45 ENMT Mouth: no TMJ abnormality and no dentition abnormality Thyromental Distance: > or= 3.5 Finger Breadths Mallampati Class: II Neck neck extension not limited Respiratory normal respiratory effort; no respiratory distress Auscultation: lungs clear to auscultation bilaterally Cardiovascular Rate/Rhythm: regular rate and regular rhythm Neurologic moves all extremities Psychiatric Orientation: alert and oriented x 3 Testing Laboratory Results 11/15/20 05:44 11/15/20 05:44 PT 11.2 Seconds (9.0-12.0) 11/15/20 08:33 INR 1.1 (0.9-1.1) 11/15/20 08:33 11/16/20 11/16/20 05:58 00:12 POC Glucose 211 H 181 H
[2020-11-16] MEDS ORDERED: PROPOFOL IV EMULSION 10 MG/ML 20 ML VIAL IV ONE (10:54)
[2020-11-16] MEDS ORDERED: LIDOCAINE HCL 2% 2 ML VIAL/AMP(20MG/ML) INFIL ONE (10:54)
[2020-11-16] MEDS ORDERED: fentaNYL citrate 100 MCG/2 ML VIAL IV ONE (10:54)
[2020-11-16] MEDS ORDERED: ONDANSETRON INJ 2 MG/ML 2 ML VIAL IV ONE (10:54)
[2020-11-16] MEDS ORDERED: INDOMETHACIN 50 MG SUPP PR ONE (11:00)
--- NOTE | 2020-11-16 11:08 | History & Physical Bridge Note ---
Date of Service November 16, 2020 History & Physical Bridge Note I have examined the patient, reviewed the History & Physical and in the interval since the performance of the History & Physical I have noted the following changes of clinical significance: no changes noted. The patient has new onset jaundice which is thought to be obstructive in nature as result of his history of carcinoid tumor. We are planning for upper endoscopy endoscopic ultrasound and ERCP today. We have discussed the risks to include bleeding, infection, perforation, pancreatitis, pain and need for follow-up studies.
--- NOTE | 2020-11-16 11:24 | GI REPORT ---
Patient Name: Mehdi Morillo Procedure Date: 11/16/2020 11:10 AM Date of : 1950 Admit Type: Inpatient Age: 70 Gender: Male Attending MD: Ruba Thompson DO Procedure: Upper GI endoscopy Providers: Ruba Thompson DO Referring MD: Kevin Melgar Indications: Abnormal CT of the GI tract, Abnormal MRI of the GI tract Medicines: Monitored Anesthesia Care Complications: No immediate complications. Estimated blood loss: Minimal. Estimated Blood Loss: Estimated blood loss was minimal. Procedure: Pre-Anesthesia Assessment: - Prior to the procedure, a History and Physical was performed, and patient medications, allergies and sensitivities were reviewed. The patient's tolerance of previous anesthesia was reviewed. - The risks and benefits of the procedure and the sedation options and risks were discussed with the patient. All questions were answered and informed consent was obtained. - Patient identification and proposed procedure were verified prior to the procedure by the physician, the nurse and the chemical blender. The procedure was verified in the procedure room. - Pre-procedure physical examination revealed no contraindications to sedation. - ASA Grade Assessment: III - A patient with severe systemic disease. - The anesthesia plan was to use general anesthesia. - Immediately prior to administration of medications, the patient was re-assessed for adequacy to receive sedatives. - The heart rate, respiratory rate, oxygen saturations, blood pressure, adequacy of pulmonary ventilation, and response to care were monitored throughout the procedure. - The physical status of the patient was re-assessed after the procedure. After obtaining informed consent, the endoscope was passed under direct vision. Throughout the procedure, the patient's blood pressure, pulse, and oxygen saturations were monitored continuously. The Endoscope was introduced through the mouth, and advanced to the third part of duodenum. The upper GI endoscopy was accomplished without difficulty. The patient tolerated the procedure well. Findings: The examined esophagus was normal. The Z-line was regular and was found 43 cm from the incisors. The entire examined stomach was normal. A moderate extrinsic deformity was found in the duodenal bulb and in the second portion of the duodenum. Impression: - Normal esophagus. - Z-line regular, 43 cm from the incisors. - Normal stomach. - Duodenal deformity. - No specimens collected. Recommendation: - Perform an upper endoscopic ultrasound (UEUS) today. Ruba Thompson D.O. Ruba Thompson, 11/16/2020 11:24:00 AM This report has been signed electronically. Note Initiated On: 11/16/2020 11:10 AM Number of Addenda: 0 I attest to the content of the Intraoperative Record and orders documented therein, exceptions below {[id number]}
--- NOTE | 2020-11-16 12:18 | Post Operative Brief Note ---
Immediate Post Op Note v1 Date of Surgery November 16, 2020 Pre & Post Diagnosis Operation Date: 11/16/20 12:20 Pre-Op Diagnosis: Jaundice Post-Op Diagnosis: Pancreatic Mass I identified the patient and participated in the time-out.: Yes Procedure Operation Date: 11/16/20 12:20 Actual Procedures p Endoscopic Ultrasonography Upper, Attempted Endoscopic Retrograde Cholangiopancreatogram, Esophagogastroduodenoscopy(Not Applicable) - Ruba Thompson DO Surgeon Ruba hTompson DO Instructor Of Education none Estimated Blood Loss 0 Findings Consistent with Post-Op Diagnosis
--- NOTE | 2020-11-16 12:19 | Communication Note ---
Date of Service: November 16, 2020 The patient appears to have biliary obstruction as result of a mass in the region of the pancreatic neck. Due to his postsurgical anatomy I was unable to reach the ampulla perform an ERCP with biliary decompression. Recommendations Consider referral to a tertiary care center for repeat attempt at ERCP Await cytology results Please call with any questions or concerns over the weekend
--- NOTE | 2020-11-16 12:38 | Anesthesiology Progress Note ---
Date of Service November 16, 2020 Anesthesia Post Procedure Vital Signs Vital Signs: Temp Pulse Pulse Resp BP BP Pulse Ox 11/16/20 12:35 61 18 158/85 H 100 11/16/20 12:25 62 13 174/85 H 100 11/16/20 12:15 66 17 180/88 H 100 11/16/20 12:08 36.3 C L 75 16 143/87 H 96 11/16/20 10:30 36.6 C 65 18 170/75 H 100 11/16/20 08:45 36.5 C 60 20 146/71 H 99 11/16/20 04:08 36.7 C 59 L 16 180/75 H 98 11/16/20 00:32 36.7 C 58 L 16 170/79 H 98 11/15/20 20:02 36.9 C 65 18 157/71 H 98 11/15/20 15:47 36.7 C 68 20 164/75 H 98 Transfer of Care Handoff Completed per policy Notes Mental Status: alert / awake / arousable and participated in evaluation Patient Amnestic to Procedure: Yes Nausea / Vomiting: adequately controlled Pain: adequately controlled Airway Patency, RR, SpO2: stable & adequate BP & HR: stable & adequate Hydration State: stable & adequate Anesthetic Complications: no major complications apparent and Pt Satisfied with anesthetic care
--- NOTE | 2020-11-16 12:44 | Cardiology Progress Note ---
Date of Service November 16, 2020 Assessment & Plan (1) Abnormal ECG: (2) Encounter for pre-operative examination: (3) Elevated bilirubin: (4) Hypertension: (5) Hypertensive heart disease: Patient with new conduction system disease on outpatient/inpatient EKG. He has no symptoms. Underlying hypertension noted with severe concentric LVH on echo, otherwise normal LV function. The pathophysiology and potential clinical consequences were discussed with the patient and his . Increase amlodipine to 5 mg. Continue lisinopril. He has no cardiac symptoms. No ischemic changes noted on EKG and cardiac enzymes are unremarkable. No further cardiac testing warranted prior to planned GI procedures to evaluate the status of his metastatic neuroendocrine CA and elevated bilirubin Okay to DC telemetry from a cardiac standpoint. We will sign off, please call with questions or concerns. Admission and Anticipated Discharge Date Admission Date: November 14, 2020 Subjective Patient seen and examined, chart reviewed. Denies any cardiovascular complaints specifically denying any chest pain, shortness of breath, palpitations, lightheadedness, dizziness or syncope. Telemetry reviewed: Normal sinus rhythm without arrhythmia or significant ectopy. Review of Systems Review of Systems: All systems reviewed & are unremarkable except as noted in HPI & below Physical Exam Physical Exam: General: Awake, alert and oriented x 3. No acute distress. HEENT: Normocephalic, atraumatic. Pupils equal, round and reactive to light and accommodation. Extraocular muscles are intact. Anicteric sclera. Moist mucous membranes. Neck: No JVD. No bruit. Cardiovascular: Regular. Positive S-4. Normal S-1 and S-2. No S-3. No murmurs or rubs. Pulmonary: Clear to auscultation B/L. No rales, rhonchi or wheezing Abdomen: Bowel sounds x 4, soft. No rebound, guarding or tenderness. No organomegaly. Extremities: No clubbing, cyanosis or edema. +2 pedal pulses bilaterally. Skin: Warm and dry. Results & Data ([facility]) Vital Signs (Past 12 Hours) Vital Signs Temp Pulse Pulse Resp BP BP Pulse Ox 11/16/20 12:35 61 18 158/85 H 100 11/16/20 12:25 62 13 174/85 H 100 11/16/20 12:15 66 17 180/88 H 100 11/16/20 12:08 36.3 C L 75 16 143/87 H 96 11/16/20 10:30 36.6 C 65 18 170/75 H 100 11/16/20 08:45 36.5 C 60 20 146/71 H 99 11/16/20 04:08 36.7 C 59 L 16 180/75 H 98
--- NOTE | 2020-11-16 16:03 | GI REPORT ---
Patient Name: Mehdi Morillo Procedure Date: 11/16/2020 11:12 AM Date of : 1950 Admit Type: Inpatient Age: 70 Gender: Male Attending MD: Ruba Thompson DO Procedure: Upper EUS Providers: Ruba Thompson DO Referring MD: Kevin Melgar Indications: Elevated liver enzymes Medicines: General Anesthesia Complications: No immediate complications. Estimated blood loss: Minimal. Estimated Blood Loss: Estimated blood loss was minimal. Procedure: Pre-Anesthesia Assessment: - Prior to the procedure, a History and Physical was performed, and patient medications, allergies and sensitivities were reviewed. The patient's tolerance of previous anesthesia was reviewed. - The risks and benefits of the procedure and the sedation options and risks were discussed with the patient. All questions were answered and informed consent was obtained. - Patient identification and proposed procedure were verified prior to the procedure by the physician, the nurse and the marketing programs specialist. The procedure was verified in the procedure room. - Pre-procedure physical examination revealed no contraindications to sedation. - ASA Grade Assessment: III - A patient with severe systemic disease. - After reviewing the risks and benefits, the patient was deemed in satisfactory condition to undergo the procedure. - The anesthesia plan was to use general anesthesia. - Immediately prior to administration of medications, the patient was re-assessed for adequacy to receive sedatives. - The heart rate, respiratory rate, oxygen saturations, blood pressure, adequacy of pulmonary ventilation, and response to care were monitored throughout the procedure. - The physical status of the patient was re-assessed after the procedure. After obtaining informed consent, the endoscope was passed under direct vision. Throughout the procedure, the patient's blood pressure, pulse, and oxygen saturations were monitored continuously. The scope was introduced through the mouth, and advanced to the duodenal bulb. The upper EUS was accomplished with some difficulty as the endoscope could not be passed into the duodenum due to gastric distention. The patient tolerated the procedure well. Findings: ENDOSONOGRAPHIC FINDING: : An irregular mass was identified in the pancreatic neck. The mass was hypoechoic. The mass measured 25 mm by 20 mm in maximal cross-sectional diameter. The outer margins were irregular. There was sonographic evidence suggesting invasion into the splenic artery (manifested by encasement). An intact interface was seen between the mass and the adjacent structures suggesting a lack of invasion. Fine needle aspiration for cytology was performed. Color Doppler imaging was utilized prior to needle puncture to confirm a lack of significant vascular structures within the needle path. Five passes were made with the 22 gauge needle using a transgastric approach. A stylet was used. A branch account executive was present and performed a preliminary cytologic examination. Final cytology results are pending. Estimated blood loss was minimal. There was no sign of significant endosonographic abnormality in the visualized portion of the liver. Homogeneous parenchyma and no focal pathology were identified. varices Impression: - A suspicious mass was identified in the pancreatic neck. This was staged T3 Nx Mx by endosonographic criteria. The staging applies if malignancy is confirmed. Fine needle aspiration performed. - There was no evidence of significant pathology in the visualized portion of the liver. Recommendation: - Perform an ERCP today. - Await cytology results. Ruba Thompson D.O. Ruba Thompson, 11/16/2020 4:03:02 PM This report has been signed electronically. Note Initiated On: 11/16/2020 11:12 AM Number of Addenda: 0 I attest to the content of the Intraoperative Record and orders documented therein, exceptions below {[id number]}
--- NOTE | 2020-11-16 16:03 | GI REPORT ---
Patient Name: Mehdi Morillo Procedure Date: 11/16/2020 11:44 AM Date of : 1950 Admit Type: Inpatient Age: 70 Gender: Male Attending MD: Ruba Thompson DO Procedure: ERCP Providers: Ruba Thompson DO Referring MD: Mikaela Ferreira Do Indications: Jaundice Medicines: General Anesthesia Complications: No immediate complications. Estimated blood loss: Minimal. Estimated Blood Loss: Estimated blood loss was minimal. Procedure: Pre-Anesthesia Assessment: - Prior to the procedure, a History and Physical was performed, and patient medications, allergies and sensitivities were reviewed. The patient's tolerance of previous anesthesia was reviewed. - The risks and benefits of the procedure and the sedation options and risks were discussed with the patient. All questions were answered and informed consent was obtained. - Patient identification and proposed procedure were verified prior to the procedure by the physician, the nurse and the warehouse distribution associate. The procedure was verified in the procedure room. - Pre-procedure physical examination revealed no contraindications to sedation. - ASA Grade Assessment: III - A patient with severe systemic disease. - After reviewing the risks and benefits, the patient was deemed in satisfactory condition to undergo the procedure. - The anesthesia plan was to use general anesthesia. - Immediately prior to administration of medications, the patient was re-assessed for adequacy to receive sedatives. - The heart rate, respiratory rate, oxygen saturations, blood pressure, adequacy of pulmonary ventilation, and response to care were monitored throughout the procedure. - The physical status of the patient was re-assessed after the procedure. After obtaining informed consent, the scope was passed under direct vision. Throughout the procedure, the patient's blood pressure, pulse, and oxygen saturations were monitored continuously. The scope was introduced through the mouth, with the intention of advancing to the bile ducts. The scope was advanced to the stomach before the procedure was aborted. Medications were given. The patient tolerated the procedure well. The ERCP was extremely difficult due to post-surgical anatomy. The procedure was aided by applying abdominal pressure. Findings: A salesperson florist supplies film of the abdomen was obtained. Surgical clips, consistent with a previous cholecystectomy, were seen in the area of the right upper quadrant of the abdomen. Impression: Unable to pass duodenoscope into the duodenum due to post-surgical anatomy. Recommendation: - Transfer patient to another hospital for repeat attempt at ERCP Ruba Thompson D.O. Ruba Thompson, 11/16/2020 4:03:37 PM This report has been signed electronically. Note Initiated On: 11/16/2020 11:44 AM Number of Addenda: 0 I attest to the content of the Intraoperative Record and orders documented therein, exceptions below {[id number]}
--- NOTE | 2020-11-16 16:58 | Discharge Summary ---
Date of Service November 16, 2020 Admission HPI Per Admitting Provider History obtained from patient and records. 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 Last confinement February 2016 for pancreatitis. Patient eventually found to have neuroendocrine carcinoma of the small intestine with hepatic mets status post surgery at [facility] (05/2016). Multiple hepatic lesions noted. Monthly Sandostatin Rx given since August 2016. Gallium PET scan report from November 2017 showed multiple liver lesions, bone lesions involving the ribs, left scapula, sternum and left ilium. Possible recurrent disease at the previous surgical site. Patient asymptomatic as per outpatient oncology documentation. Outpatient CT chest, abdomen, pelvis from January 2020 showed right upper and right lower lobe pulmonary nodules. Suggest follow-up imaging to exclude metastatic disease. Soft tissue nodule pleural posterior left lower lobe concerning for metastatic disease. Postop changes from left hepatectomy. Low-density lesion hepatic dome measuring 0.8 x 1.2 cm concerning for metastatic disease. I nfiltration of peripancreatic duct predominately at the pancreatic body and tail concerning for inflammation and pancreatitis. Postop changes right hemicolectomy. Colitis. 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 Bladder wall thickening. No destructive bony lesion identified on this study. No CT abnormality identified to correlate with areas of uptake on PET/CT November 2017 concerning for metastatic disease. 3 months history of jaundice without abdominal pain symptoms. Weight loss despite good appetite as per patient. No chest pain, no S OB., No headache. No fever, no chills. Outpatient chemistry yesterday showed AST 144, ALT 165, alk phos 08/29/1969, bilirubin 6.5, serum glucose 367. Hemoglobin A1c noted to be 10. Patient seen at PCP's office yesterday to discuss abnormal blood work results. Concern for obstructive jaundice. Outpatient EUS/ERCP by [facility] contemplated 11/16/20. Insulin to be initiated outpatient for DM2. As per patient, EKG was done at the office because provider noted irregular heartbeat. EKG showed sinus bradycardia, RBBB, LAFB, bifascicular block, septal infarct. Cardiology (contacted by PCP through [facility]) recommended 2D echo and preoperative stratification. Outpatient providers directed patient to the hospital to facilitate work-up for cardiac and GI issues. 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 Admission Exam Per Admitting Provider GENERAL: Comfortable, no respiratory distress SKIN: Pallor, warm HEENT: Pale palpebral conjunctivae, icteric sclerae, no ptosis, moist buccal mucosa NECK : Supple, no tenderness CHEST : CTA, no tenderness HEART : Bradycardic, no obvious murmurs ABDOMEN: no abdominal distention, nontender EXTREMITIES : No LE swelling/tenderness, no other conspicuous deformities noted NEUROLOGIC : Coherent, no facial asymmetry, no other gross focality Principal Diagnosis Hyperbilirubinemia Transaminitis Neuroendocrine carcinoma metastatic to liver Hypertensive Urgency DMII Discharge Exam CONSTITUTIONAL: thin build, vitals as above, generally well-appearing EYES: normal conjunctivae, +icteric sclerae ENT: external ear and nose normal, MMM RESPIRATORY: clear to auscultation bilaterally, no crackles, rales or wheezes, normal respiratory effort CARDIOVASCULAR: regular rate and rhythm, S1 and 2 heard without murmurs, gallops or rubs, no JVD, no peripheral edema GASTROINTESTINAL: soft, nontender, nondistended. Well-healed surgical scars. MUSCULOSKELETAL: strength 5/5 throughout, head is normocephalic and atraumatic SKIN: warm and dry, +jaundice NEUROLOGIC: CN 2-12 grossly intact, normal cognition, normal speech, no tremor. No gross focal deficits. PSYCHIATRIC: alert cooperative and oriented to person, place and time. Discharge Data Allergies Allergy/AdvReac Type Severity Reaction Status Date / Time No Known Allergies Allergy Verified 11/14/20 17:59 Consultations 11/14/20 19:02 ED Decision to Admit Stat 11/14/20 22:38 Consult Cardiology Routine Consult Gastroenterology Routine Procedures Performed Operation Date: 11/16/20 12:20 Actual Procedures p Endoscopic Ultrasonography Upper,(Not Applicable) - DO raheem Blackmon Esophagogastroduodenoscopy(Not Applicable) - DO raheem Blackmon Endoscopic Retrograde Cholangiopancreatogram, (Not Applicable) - Ruba Thompson DO Ordered Studies 11/15/20 09:57 MR MRCP Urgent 11/15/20 14:26 CT liver wo/w con Stat 11/16/20 11:08 US upper EUS PACS images Routine Hospital Course (1) Elevated bilirubin: Possibly with obstructive jaundice but still uncertain etiology. MRCP revealed possible kinking of the distal common bile duct. There was mild intra and extrahepatic biliary ductal dilatation with a 7mm CBD. No ductal filling defects were seen. A further liver CT was then performed revealing post surgical changes from a left hepatic lobe resection, no focal livers masses, and questioned the possibility of autoimmune pancreatitis in the differential. Further investigation into the cause planned with an EUS the following day, however, the post surgical anatomy made this procedure too difficult to pursue fully. The procedure was aborted and a reattempt was planned at a tertiary care facility in the next couple of weeks. (2) Transaminitis: Possibly related to obstructive hepatopathy. Further workup in am per plan above. (3) Neuroendocrine carcinoma metastatic to liver: Neuroendocrine carcinoma involving the liver, primary site involving the small intestine, diagnosed May 2016. He has undergone treatment including resection of the small intestine, right sided colon, s/p cholecystectomy, and s/p resection of the left lobe of the liver. He remains currently on monthly injections of octreotide and is managed by his oncologist, Dr. Austin Melgar. (4) Asymptomatic hypertensive urgency: Improved on home lisinopril 40mg daily with amlodipine 5mg daily added this admission. (5) Diabetes mellitus, type 2: New diagnosis and started on Tresiba as outpatient but hasn't picked this up yet. Currently receiving basal/bolus insulin while inpatient. Additionally, there were some initial abnormal EKG findings concerning for conductive disease prompting a cardiology evaluation this admission. Serial cardiac enzymes were performed and negative. A 2D echocardiogram was performed revealing some abnormal wall motion consistent with conductive disease, grade I diastolic dysfunction and a focal calcification of the right coronary cusp, suggestive of an old healed vegetation. He also had severe left ventricular hypertrophy present and a normal EF 55-60%. His workup was not suggestive of ischemia, and there were no significant cardiac concerns that would prompt further cardiac workup. In terms of preop risk patient is were counseled that he would be placed as a low risk for any adverse perioperative cardiovascular event for upcoming GI procedures with his risk being approximately less than 1%. There further counseled that no further cardiac testing intervention would further lower that risk. At time of discharge he was hemodynamically stable and afebrile and tolerating PO. He was asymptomatic and mentating and ambulating at his baseline and oxygenating well on room air. Close primary care followup was recommended. Total Time Total Time Spent Total Time Spent (In Minutes): 60 Total Time Includes: Examination of the Patient, Discharge Planning, Medication Reconciliation and Communication With Other Providers Discharge Plan Discharge Items Patient Disposition: Home - Self-Care Reason For Visit: HTN URG Discharge Diagnosis: Hyperbilirubinemia Transaminitis Neuroendocrine carcinoma metastatic to liver Hypertensive Urgency DMII Activity: Resume your previous activity Non-emergency contact: Primary Care Provider Call non-emergency contact if: you have any medication questions, your symptoms worsen, your pain is not controlled, your pain is worsening, your pain is unusual for you, your pain is concerning for you and you have a fever Follow-up/Referrals: Mehdi Garcia MD [Primary Care Provider] - (Date & Time 11/22/2020 11:00 AM Provider Mehdi Garcia III, MD Department [facility] ) Diet: Carb Consistent or DM2 and Heart Healthy Addtl Attending Provider Instructions: Please take all medications as instructed on discharge list below . Please followup with your primary care physician at the date and time above to recheck your blood pressure and discuss your medical therapy regarding this. As a result of your complex post-surgical anatomy, Dr. Thompson was unable to completely perform the ERCP procedure. This will need to be rescheduled at a tertiary care center such as [facility], and [facility] Gastroenterology will be in touch to schedule this. It was a pleasure taking care of you! Please call if you have any questions or problems. You can reach a [facility] hospitalist on duty at [facility] 24 hours a day by calling [phone]. Take care of yourself. Mikaela Rolle, DO [facility] Hospitalist Pending Studies at Discharge: No Stand-Alone Forms: My [facility] Medications and DC Order Prescriptions: New amlodipine [Norvasc] 5 mg Tablet 5 mg PO QAM Qty: 30 RF: 0 Continued multivitamin Tablet 1 tab PO QAM RF: 0 cholecalciferol (vitamin D3) [Vitamin D3] 50 mcg (2,000 unit) Capsule 50 mcg PO QAM RF: 0 Tresiba FlexTouch U-100 100 unit/mL (3 mL) Insulin Pen 10 unit SUBCUT QAM RF: 0 sildenafil [Viagra] 25 mg Tablet 20 mg PO DAILY PRN (Reason: Erectile Disfuction) RF: 0 lisinopril 40 mg Tablet 40 mg PO QAM RF: 0 aspirin [Aspirin Low Dose] 81 mg Tablet,Delayed Release (Dr/Ec) 81 mg PO QAM RF: 0 omega-3 fatty acids Capsule 2,000 mg PO QAM RF: 0 Discharge Orders: Discharge Order (Routine); Ordered 11/16/20 Ordered By: Mikaela Mckeon/Other Patient Handouts: Controlling High Blood Pressure, Diabetes and Heart Disease Admission Data Admit Date/Time: 11/14/20 20:59 Attending Provider: Mikaela Rolle Admit Provider: Humberto Rodriguez Primary Care Provider: Mehdi Garcia Other Providers: Humberto Rodriguez ; Clint Alexander ; Donald Johnston ; Cholo Ibarra ; Esteban Mccollum ; Dashawn Miller ; Toño Min ; Marbella Bains ; Nany Dickens ; Vicente Antonio ; Lane Orellana ; Inna Pascal ; Dev Martell ; Catherine Cunha ; Jayesh Giron ; Ruba Thompson ; Renetta Canales ; Brennen Bruno ; Edward Phipps ; Lizzette Lay ; Marcia Martinez ; Ginny Del Toro ; Pura Nolasco ; Florencia Jain Other Interventions: Discharge Summary Assessment (RN) Last Done: 11/16/20 15:56
[2020-11-17] MEDS ORDERED: CHOLECALCIFEROL 1,000 UNITS 25 MCG TAB PO SCH (09:00)
== END 2020-11-16 17:58 | disposition home or self-care (01) | DRG 445 ==
LOC: ED 15:50 → 2S 20:59 → SUATTDRO 20:59 → 2S 22:12 → 3W 11-16 11:05

== ENCOUNTER 2025-04-13 10:50 | Inpatient (IN) ==
[2025-04-13] MEDS: FAMOTIDINE 20MG IV PUSH 20 MG/5 ML SYR IV STA (11:23)
[2025-04-13] MEDS: ONDANSETRON INJ 2 MG/ML 2 ML VIAL IV STA (11:23)
[2025-04-13] MEDS: MoRPHine SULFATE 4 MG/ML 1 ML CARP\\VIAL IV STA (11:23)
--- NOTE | 2025-04-13 11:25 | Emergency Department Note ---
History of Present Illness General Chief complaint: Abdominal Pain Stated complaint: ABD PAIN Time Seen by Provider: 04/13/25 10:59 History of Present Illness Maximum Pain Intensity: 10 Patient is a 74-year-old male with past medical history significant for hypertension, insulin requiring type 2 diabetes, neuroendocrine tumor with metastasis, among other chronic medical problems, who presents to the emergency department for evaluation of epigastric abdominal pain. Patient reports that his symptoms started about 90 minutes ago. He was seated at his office. He reports a sharp, stabbing pain in the epigastric region that radiates toward the right upper quadrant. He felt a little bit nauseous, but did not vomit. He denies any chest pain or shortness of breath. No pain radiating through to the back. No urinary symptoms. 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 He is status post small bowel resection, cholecystectomy, appendectomy and hepatic lobectomy. 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 He was using Imodium recently, and had a normal, formed brown bowel movement today without blood. He not currently receiving any treatment for his NET. He did see his primary care provider 2 weeks ago who was concerned with regards to the unintentional weight loss. Patient has been consuming Ensure drinks, usually in the evening, to help with his weight. He has noticed some increased acid/indigestion in the last couple of days and wonders if it is related to the drinks. Home Medications Medication Instructions Recorded Confirmed Type aspirin 81 mg tablet,delayed 81 mg PO QAM 11/14/20 04/13/25 History release (Karlie Low Dose Aspirin) cholecalciferol (vitamin D3) 50 50 mcg PO QAM 11/14/20 04/13/25 History mcg (2,000 unit) capsule (Vitamin D3) multivitamin 1 tab PO QAM 11/14/20 04/13/25 History insulin degludec 100 unit/mL (3 8 unit subcut QAM 04/13/25 04/13/25 History mL) subcutaneous pen (Tresiba FlexTouch U-100 insulin) lisinopril 20 1 tab PO QAM 04/13/25 04/13/25 History mg-hydrochlorothiazide 25 mg tablet metoprolol tartrate 25 mg tablet 25 mg PO BID 04/13/25 04/13/25 History omega 3 350 mg-dha 235 mg-epa 90 1 cap PO QAM 04/13/25 04/13/25 History mg-fish oil 597 mg capsule,delay rel ([place]-3) Allergies Allergy/AdvReac Type Severity Reaction Status Date / Time oxycodone [From OxyContin] AdvReac Unknown Nausea Verified 04/13/25 13:39 Past Med/Surg History Problem List (Updated 04/13/25 @ 16:23 by Connor Wallace) Elevated LFTs (Acute) Pancreatitis (Acute) Acute hyperglycemia (Acute) Epigastric abdominal pain (Acute) Atrial fibrillation with controlled ventricular rate Arthritis of left hip Hypertensive heart disease DVT prophylaxis Asymptomatic hypertensive urgency Acute hyperglycemia (Acute) Abnormal ECG (Acute) Elevated bilirubin (Acute) Transaminitis (Acute) Encounter for pre-operative examination Malignant carcinoid tumor of small intestine 2016, Follows with oncology (Dr. Melgar), s/p surgery plus monthly injection Neuroendocrine carcinoma metastatic to liver (Acute) 2016, Follows with oncology (Dr. Melgar), s/p surgery plus monthly injection Diabetes mellitus, type 2 IDDM Hypertension Pancreatitis (Acute) Alcohol use (Chronic) H/O colonoscopy (Chronic) "01/12/2012 COLONOSCOPY FLEXIBLE PROXIMAL DIAGNOSTIC performed by DIANELYS SNYDER at [facility], ADENOMATOUS POLYPS REPEAT COLONOSCOPY IN 3 YEARS" Tobacco abuse (Chronic) S/P ORIF (open reduction internal fixation) fracture (Chronic) HTN (hypertension) (Chronic) Medical History (Updated 04/13/25 @ 16:23 by Connor Wallace) HTN (hypertension) Diabetes IDDM Neuroendocrine carcinoma 2016, Follows with oncology (Dr. Melgar), s/p surgery Hypertensive heart disease Arthritis Hx of sepsis (2020) Hx of pancreatitis (2015) Bifascicular block no cardio Surgical History Hx of cataract extraction left History of open reduction and internal fixation (ORIF) procedure right leg History of cholecystectomy History of appendectomy History of bowel resection small intestine and tumor removal History of esophagogastroduodenoscopy (EGD) History of colonoscopy Social History (Updated 04/13/25 @ 15:51 by ADDY Anglin) Smoking Status: Former smoker Tobacco Type: Cigarettes Second Hand Exposure: No; Do You Dip or Chew Tobacco: No; Hx Alcohol Use: Yes Alcohol type: wine Alcohol Intake Frequency: 4 or More x per/Week Hx Substance Use: No Preferred Language: Korean Communication Ability: Effective Laboratory Cureman Required: No Beliefs That Will Affect Care: None Current Living Situation: Spouse Feels Safe at Home: Yes Assistive Devices: Contacts and Glasses Physical Exam Vital Signs Vital Signs - 24 hr 04/13/25 10:55 04/13/25 11:09 04/13/25 11:15 Temperature 36.6 C Temperature Source Temporal Artery Scan Pulse Rate 83 80 Pulse Rate from SpO2 Sensor Pulse Rhythm Regular Respiratory Rate 18 20 Respiratory Effort / Characteristics Non-Labored Spontaneous Respiratory Depth Normal Respiratory Pattern Regular Blood Pressure 211/107 H 189/130 H Blood Pressure Mean 141 162 Pulse Oximetry 99 98 Oxygen Delivery Method Room Air Room Air Sepsis Recent Fever Within 48 Hours No Sepsis New/Unexplained Change in Mental Status N/A Sepsis Action Taken by Nursing No Action Required 04/13/25 11:30 04/13/25 11:52 04/13/25 12:00 Temperature Temperature Source Pulse Rate 79 77 82 Pulse Rate from SpO2 Sensor 81 Pulse Rhythm Respiratory Rate 18 18 Respiratory Effort / Characteristics Respiratory Depth Respiratory Pattern Blood Pressure 185/128 H 198/125 H Blood Pressure Mean 147 144 Pulse Oximetry 96 99 Oxygen Delivery Method Sepsis Recent Fever Within 48 Hours Sepsis New/Unexplained Change in Mental Status Sepsis Action Taken by Nursing 04/13/25 12:00 04/13/25 13:00 Temperature Temperature Source Pulse Rate 87 Pulse Rate from SpO2 Sensor 89 Pulse Rhythm Respiratory Rate 16 Respiratory Effort / Characteristics Respiratory Depth Respiratory Pattern Blood Pressure 198/125 H 197/125 H Blood Pressure Mean 144 149 Pulse Oximetry 97 Oxygen Delivery Method Sepsis Recent Fever Within 48 Hours Sepsis New/Unexplained Change in Mental Status Sepsis Action Taken by Nursing CONSTITUTIONAL: Patient is a thin, chronically ill-appearing 74-year-old male who is awake and alert and laying on the gurney. is at the bedside. EYES: Pupils equal, round, reactive to light and accommodation. EOMs intact without nystagmus. Sclera are anicteric. ENT: Tympanic membranes intact, with normal landmarks. External canals are clear. Oral and nasopharynx are clear. Mucous membranes are moist, no lesions, tongue and gums appear normal. CARDIOVASCULAR: Regular rate and rhythm. Peripheral pulses easy to palpable. RESPIRATORY: Breath sounds equal and clear to auscultation. GI: Bowel sounds are present. Extensive surgical scarring noted. The abdomen is soft, scaphoid, nontender to percussion but tender to palpation in the epigastric and the right upper quadrant without guarding or rebound. MUSCULOSKELETAL: Full range of motion of extremities x 4 with good strength. No cyanosis, edema, joint tenderness or swelling. No deformity. INTEGUMENTARY: No lesions or rash, normal skin turgor. Course Course The patient was seen and assessed as above. External medical records were reviewed, including his hospitalization from 2020. He presents to the emergency department for evaluation of epigastric/right upper quadrant abdominal pain. IV was initiated and laboratory studies were collected. CBC with differential, CMP, lipase, magnesium, troponin and urinalysis were ordered. EKG was obtained. CT scan of the chest, abdomen and pelvis was ordered. The patient was ordered Pepcid, morphine and Zofran IV, but refused the morphine. He was hydrated with normal saline solution. He requested acetaminophen, I initially was going to order this, but when his labs came back with abnormal ordered. Diagnostics, as interpreted by me: Laboratory studies: Normal white count at 7400, H&H 12.9 and 35.3, sodium 127, potassium 4.4, chloride 87, carbon dioxide 20, BUN 10 and creatinine 1.36. Nonfasting glucose 580. Bilirubin 2.3, AST 49, ALT 88 and alk phos 335. Lipase is 85. Urine microscopy is clear. ECG: Atrial fibrillation versus sinus with sinus arrhythmia 87 bpm. No acute ischemic changes. No significant change on review of prior EKGs. Cardiac monitoring: An order was placed for continuous cardiac monitoring. The monitor shows a NSR in the 60s per my interpretation. Imaging studies: Chest CT : no pulmonary embolism. No airspace consolidation or pleural effusion. Metastatic disease noted. Abdominal/pelvic CT: Pancreatic head mass with pancreatic ductal dilatation and superimposed pancreatitis. Metastatic disease, diverticulitis versus diffuse colitis versus bowel edema due to ascites. No bowel obstruction. All laboratory and diagnostic imaging studies reviewed with attending physician, Dr. Sultana. ED workup reviewed with the patient and his spouse at length. Options of care were reviewed, including discharged home with close PCP/oncology follow-up versus further inpatient care. After discussing benefits, risks and alternatives, patient is agreeable to inpatient stay. Consultation placed with the [facility] service for further care and management. Chronic conditions affecting care: Atrial fibrillation, hypertension, diabetes, neuroendocrine tumor Differential diagnosis: GERD, gastritis, esophagitis, peptic ulcer disease, infectious versus inflammatory colitis/enteritis, foodborne illness, biliary pathology, bowel obstruction, perforation, abscess, mass or malignancy, electrolyte or metabolic abnormality, dehydration, among others. Administered Medications Lactated Ringer's (Lr) 1,000 mls @ 100 mls/hr IV .Q10H JADE Stop: 04/16/25 14:59 Last Admin: 04/13/25 16:08 Dose: 100 mls/hr Documented By: CHELSEA Insulin Human Regular 250 (units/ Sodium Chloride) 250 mls @ 1.4 mls/hr IV .Q24H JADE; Protocol Stop: 05/13/25 15:59 Last Admin: 04/13/25 16:08 Dose: 1.4 units/hr, 1.4 mls/hr Documented By: CHELSEA Co-signed By: MELVIN Discontinued Medications Famotidine (Pepcid 20mg Iv Push) 20 mg in 5 mls @ 2.5 mls/min IV NOW STA Stop: 04/13/25 11:16 Last Admin: 04/13/25 11:23 Dose: 2.5 mls/min Documented By: SADIA Sodium Chloride (Nss) 1,000 mls @ 999 mls/hr IV .Q1H1M JADE Stop: 04/13/25 14:34 Last Infusion: 04/13/25 14:38 Dose: Infused Documented By: Admin: 04/13/25 13:37 Dose: 999 mls/hr Documented By: ASDIA Ioversol (Optiray 320 125ml) 119 ml IV ONCE ONE Stop: 04/13/25 12:32 Last Admin: 04/13/25 12:32 Dose: 119 ml Documented By: ROSA Morphine Sulfate (Morphine Sulfate 4 Mg/Ml 1 Ml Carp\\Vial) 4 mg IV NOW STA Stop: 04/13/25 11:16 Last Admin: 04/13/25 11:25 Dose: Not Given Documented By: SADIA Morphine Sulfate (Morphine Sulfate 2 Mg/Ml Carp) 2 mg IV NOW STA Stop: 04/13/25 13:11 Last Admin: 04/13/25 13:15 Dose: 2 mg Documented By: SADIA Ondansetron HCl (Ondansetron Inj 2 Mg/Ml 2 Ml Vial) 4 mg IV NOW STA Stop: 04/13/25 11:16 Last Admin: 04/13/25 11:23 Dose: 4 mg Documented By: SADIA Medical Decision Making Differential Diagnosis See ED Course. Medical Records Attestation: I reviewed the patient's medical records. Home Medications Current Medication List: was personally reviewed by me Laboratory Data Attestation: I reviewed the patient's lab results. 04/13/25 11:05 04/13/25 11:05 Lab Results 04/13/25 04/13/25 Range/Units 11:05 12:17 WBC 7.45 (4.8-10.8) K/ul RBC 3.55 L (4.70-6.10) M/uL Hgb 12.9 L (14.0-18.0) g/dl Hct 35.3 L (42.0-52.0) % MCV 99.4 (80.0-100.0) fL MCH 36.3 H (25.0-34.0) pg MCHC 36.5 H (32.0-36.0) g/dL RDW Std Deviation 48.5 H (36.4-46.3) fL RDW Coeff of Gumaro 13.3 (11.5-14.5) % Plt Count 202 (130-400) K/uL MPV 12.1 (9.4-12.4) fL Immature Gran % (Auto) 0.5 % Neut % (Auto) 84.5 % Lymph % (Auto) 5.5 % Ralls % (Auto) 9.5 % Eos % (Auto) 0.0 % Baso % (Auto) 0.0 % Neut # (Auto) 6.29 (1.40-6.50) K/uL Lymph # (Auto) 0.41 L (1.20-3.40) K/uL Ralls # (Auto) 0.71 H (0.11-0.59) K/uL Eos # (Auto) 0.00 (0.00-0.50) K/uL Baso # (Auto) 0.00 (0.00-0.20) K/uL Immature Gran # (Auto) 0.04 (0.01-0.20) K/uL Sodium 127 L (136-145) mmol/L Potassium 4.4 (3.5-5.1) mmol/L Chloride 87 L (98-107) mmol/L Carbon Dioxide 30 (21-32) mmol/L Anion Gap 10 (3-11) BUN 28 H (6-23) mg/dl Creatinine 1.36 (0.6-1.4) mg/dl Est Cr Clr Drug Dosing 39.4 ml/min eGFR 54.61 BUN/Creatinine Ratio 20.6 H (10-20) Glucose 580 H* (70-99(Fasting)) mg/dl Calcium 9.7 (8.6-10.3) mg/dl Magnesium 1.9 (1.7-2.4) mg/dl Total Bilirubin 2.3 H (0.2-1.0) mg/dl AST 49 H (13-39) U/L ALT 88 H (7-52) U/L Alkaline Phosphatase 335 H (34-104) U/L Troponin I High Sens 12.7 (0-20) pg/ml Total Protein 8.0 (6.0-8.3) gm/dl Albumin 4.2 (3.4-5.0) gm/dl Globulin 3.8 (2.5-4.0) gm/dl Albumin/Globulin Ratio 1.1 (0.9-2) Lipase 85 H (11-82) U/L TSH 1.693 (0.300-4.500) uIu/ml Urine Color Yellow Urine Appearance Clear (Clear) Urine pH 5.5 (4.5-7.5) Ur Specific Tovey 1.033 H (1.000-1.030) Urine Protein Negative (Negative) Urine Glucose (UA) 3+ H (Negative) Urine Ketones Negative (Negative) Urine Blood Negative (Negative) Urine Nitrite Negative (Negative) Urine Bilirubin Negative (Negative) Urine Urobilinogen Negative (Negative) Ur Leukocyte Esterase Negative (Negative) Urine Comment Imaging Data Attestation: I personally reviewed and interpreted this imaging study as follows: Radiologist's Impression: Abdomen/Pelvis CT 04/13/25 11:[address] WITH IV CONTRAST CT DOSE: 761.03 mGy.cm HISTORY: EPIGASTRIC ABD PAIN TECHNIQUE: Multiaxial CT images of the abdomen and pelvis were performed following the IV administration of 120 cc of Optiray, A dose lowering technique was utilized adhering to the principles of ALARA. COMPARISON STUDY: 11/15/2020 FINDINGS: ABDOMEN: Stable left hepatic lobe resection. Gallbladder is surgically absent. Otherwise the liver, spleen, and adrenal glands are unremarkable. Kidneys show no hydronephrosis. There are scattered atherosclerotic calcifications. No abdominal aortic aneurysm. There is increased dilatation of the pancreatic duct. There is mild stranding adjacent to the pancreas. No significant peripancreatic fluid or pseudocyst. There is increased prominence of the pancreatic head with irregular margins measuring approximately 3 x 3 cm. There are is interval loculated branching finding anterior to the upper liver measuring 2 cm series 6 image 56. Pelvis: Prostate is enlarged. Urinary bladder is distended. There is extensive sigmoid diverticulosis. There is wall thickening through the region of diverticulosis. There is possible mild inflammation versus wall edema from trace ascites. No other bowel inflammation or obstruction seen. No free fluid, free air, or abscess otherwise. No enlarged adenopathy. There is mild anasarca. Osseous structures: There is moderate lumbar degenerative disc disease. There are moderate to severe degenerative changes at the hips. IMPRESSION: 1. Possible 3 cm pancreatic head mass with increased pancreatic ductal dilatation distal to the mass. Possible superimposed minimal pancreatitis. 2. Interval small finding anterior to the liver. Differential diagnosis includes mass/metastatic disease, ectopic pancreatic tissue, and other finding. 3. Mild acute uncomplicated sigmoid diverticulitis versus mild diffuse colitis, versus mild bowel edema due to trace ascites. No bowel obstruction seen. 4. Otherwise as described. ACT 112: Positive. There are findings on this exam that require communication between the performing entity and the patient following Patient Test Result Information Act ([place] Act 112) guidelines. The above report was generated using voice recognition software. It may contain grammatical, syntax or spelling errors. Electronically signed by: Clint Mccarthy M.D. 04/13/2025 12:56 PM Chest CTA 04/13/25 11:15 CT ANGIOGRAM OF THE CHEST CLINICAL HISTORY: Epigastric abdominal pain. COMPARISON STUDY: Chest CT dated 03/04/2016. TECHNIQUE: Following the IV administration of 119 cc of Optiray 320, CT angiogram of the chest was performed from the upper abdomen to the thoracic inlet utilizing the pulmonary embolus protocol. Images are reviewed in the axial, sagittal, and coronal planes. 3-D MIPS images are created and assessed. IV contrast was administered without complication. A dose lowering technique was utilized adhering to the principles of ALARA. FINDINGS: Thyroid: Imaged portions of the thyroid gland are normal in size and attenuation. Thoracic aorta: There is atherosclerotic calcification of the thoracic aorta, which is normal in caliber and demonstrates 4-vessel variant arch anatomy. The thoracic aorta is not opacified. Pulmonary vasculature: The pulmonary trunk is dilated, measuring 3.5 cm diameter. This suggests pulmonary artery hypertension. There are no filling defects identified in main, lobar, or segmental pulmonary branches to suggest pulmonary embolus. Heart: The heart is enlarged and without pericardial effusion. The coronary arteries are densely calcified. Lungs and pleural spaces: There is no airspace consolidation or pleural effusion. The trachea and central airways are clear. There are scattered calcified granulomas. Linear scarring/atelectasis is noted at the right lung base. A fat-containing Bochdalek hernia is seen on the left. Mediastinum: There is no mediastinal lymphadenopathy. An enlarged right internal mammary lymph node on image #140 measures 1.2 x 0.8 cm. Samara: Clear. Axillae: There is no axillary lymphadenopathy. Upper abdomen: A small hiatal hernia is noted. There is postsurgical change from left hepatic lobe resection. Irregular nodules/nodes in the right cardiophrenic space measuring up to 2.1 cm seen on image #47. These are suspicious for metastatic disease. There is mild intrahepatic biliary ductal dilatation. Skeletal structures: The skeletal structures are osteopenic. There is evidence of multifocal osteoblastic metastatic disease. Lesions are seen within the manubrium and body of the sternum, both scapulae, bilateral ribs, and the thoracic spine. IMPRESSION: 1. There is no evidence of pulmonary embolus in the main, lobar, or segmental pulmonary arteries. 2. Cardiomegaly with evidence of pulmonary artery hypertension. 3. There is no airspace consolidation or pleural effusion. 4. 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 Correlate with the oncological history. 5. A pathologically enlarged right internal mammary lymph node, as well as enlarged right cardiophrenic nodes/implants are also suspicious for metastatic disease. 6. Advanced coronary artery atherosclerosis. 7. Additional findings as above. ACT 112: Negative or not required by law. Electronically signed by: Omar Gaytan M.D. 04/13/2025 12:59 PM MDM Narrative See ED Course. Impression & Plan Epigastric abdominal pain, Neuroendocrine carcinoma metastatic to liver, Acute hyperglycemia, Pancreatitis, Elevated LFTs Discharge Plan Visit Data Chief Complaint: Abdominal Pain Stated Complaint: ABD PAIN ED Provider: Anel Sultana ED Midlevel Provider: Connor Wallace Discharge Problem: Epigastric abdominal pain, Neuroendocrine carcinoma metastatic to liver, Acute hyperglycemia, Pancreatitis, Elevated LFTs Patient Disposition: Admitted As Inpatient Condition: Fair Discharge Instructions Interventions: ED Discharge Assessment Last Done: 04/13/25 15:40
[2025-04-13 11:51] LABS: Hematocrit (blood only) 35.3 % (42.0-52.0); Hemoglobin 12.9 g/dl (14.0-18.0); Immature Granulocytes # (auto) 0.04 K/uL (0.01-0.20); Immature Granulocytes % (auto) 0.5 %; Mean Corpuscular Hemoglobin 36.3 pg (25.0-34.0); Mean Corpuscular Volume 99.4 fL (80.0-100.0); Platelet Count 202 K/uL (130-400); RDW Standard Deviation 48.5 fL (36.4-46.3); Red Blood Count 3.55 M/uL (4.70-6.10); White Blood Count 7.45 K/ul (4.8-10.8)
[2025-04-13 12:14] LABS: Alanine Aminotransferase 88.0 U/L (7-52); Albumin Globulin Ratio 1.1 (0.9-2); Alkaline Phosphatase 335.0 U/L (34-104); Anion Gap 10.0 (3-11); Bilirubin,Total 2.3 mg/dl (0.2-1.0); Blood Urea Nitrogen 28.0 mg/dl (6-23); Calcium 9.7 mg/dl (8.6-10.3); Carbon Dioxide 30.0 mmol/L (21-32); Chloride 87.0 mmol/L (98-107); Creatinine Clr Calc Pharmacy 39.4 ml/min; Globulin 3.8 gm/dl (2.5-4.0); Glucose 580.0 mg/dl (70-99(Fasting)); Lipase 85.0 U/L (11-82); Magnesium 1.9 mg/dl (1.7-2.4); Potassium 4.4 mmol/L (3.5-5.1); Sodium 127.0 mmol/L (136-145); Total Protein 8.0 gm/dl (6.0-8.3)
[2025-04-13] MEDS: OPTIRAY 320 125ml IV ONE (12:32)
[2025-04-13 12:45] LABS: Appearance Urine Clear (Clear); Glucose Urine UA 3+ (Negative)
--- NOTE | 2025-04-13 12:58 | CT Scan Report ---
ABDOMEN AND PELVIS CT WITH IV CONTRAST CT DOSE: 761.03 mGy.cm HISTORY: EPIGASTRIC ABD PAIN TECHNIQUE: Multiaxial CT images of the abdomen and pelvis were performed following the IV administrat ion of 120 cc of Optiray, A dose lowering technique was utilized adhering to the principles of ALARA . COMPARISON STUDY: 11/15/2020 FINDINGS: ABDOMEN: Stable left hepatic lobe resection. Gallbladder is surgically absent. Otherwise the liver, s pleen, and adrenal glands are unremarkable. Kidneys show no hydronephrosis. There are scattered ather osclerotic calcifications. No abdominal aortic aneurysm. There is increased dilatation of the pancrea tic duct. There is mild stranding adjacent to the pancreas. No significant peripancreatic fluid or ps eudocyst. There is increased prominence of the pancreatic head with irregular margins measuring appro ximately 3 x 3 cm. There are is interval loculated branching finding anterior to the upper liver james uring 2 cm series 6 image 56. Pelvis: Prostate is enlarged. Urinary bladder is distended. There is extensive sigmoid diverticulosis . There is wall thickening through the region of diverticulosis. There is possible mild inflammation versus wall edema from trace ascites. No other bowel inflammation or obstruction seen. No free fluid, free air, or abscess otherwise. No enlarged adenopathy. There is mild anasarca. Osseous structures: There is moderate lumbar degenerative disc disease. There are moderate to severe degenerative changes at the hips. IMPRESSION: 1. Possible 3 cm pancreatic head mass with increased pancreatic ductal dilatation distal to the mass. Possible superimposed minimal pancreatitis. 2. Interval small finding anterior to the liver. Differential diagnosis includes mass/metastatic dise ase, ectopic pancreatic tissue, and other finding. 3. Mild acute uncomplicated sigmoid diverticulitis versus mild diffuse colitis, versus mild bowel jeanine ma due to trace ascites. No bowel obstruction seen. 4. Otherwise as described. ACT 112: Positive. There are findings on this exam that require communication between the performing entity and the patient following Patient Test Result Information Act ([place] Act 112) guidelines. The above report was generated using voice recognition software. It may contain grammatical, syntax o r spelling errors. Electronically signed by: Clint Mccarthy M.D. 04/13/2025 12:56 PM
--- NOTE | 2025-04-13 13:00 | CT Scan Report ---
CT ANGIOGRAM OF THE CHEST CLINICAL HISTORY: Epigastric abdominal pain. COMPARISON STUDY: Chest CT dated 03/04/2016. TECHNIQUE: Following the IV administration of 119 cc of Optiray 320, CT angiogram of the chest was pe rformed from the upper abdomen to the thoracic inlet utilizing the pulmonary embolus protocol. Images are reviewed in the axial, sagittal, and coronal planes. 3-D MIPS images are created and assessed. I V contrast was administered without complication. A dose lowering technique was utilized adhering to the principles of ALARA. FINDINGS: Thyroid: Imaged portions of the thyroid gland are normal in size and attenuation. Thoracic aorta: There is atherosclerotic calcification of the thoracic aorta, which is normal in marli jose and demonstrates 4-vessel variant arch anatomy. The thoracic aorta is not opacified. Pulmonary vasculature: The pulmonary trunk is dilated, measuring 3.5 cm diameter. This suggests pulmo nary artery hypertension. There are no filling defects identified in main, lobar, or segmental pulmon inez branches to suggest pulmonary embolus. Heart: The heart is enlarged and without pericardial effusion. The coronary arteries are densely calc ified. Lungs and pleural spaces: There is no airspace consolidation or pleural effusion. The trachea and sandy tral airways are clear. There are scattered calcified granulomas. Linear scarring/atelectasis is note d at the right lung base. A fat-containing Bochdalek hernia is seen on the left. Mediastinum: There is no mediastinal lymphadenopathy. An enlarged right internal mammary lymph node o n image #140 measures 1.2 x 0.8 cm. Samara: Clear. Axillae: There is no axillary lymphadenopathy. Upper abdomen: A small hiatal hernia is noted. There is postsurgical change from left hepatic lobe re section. Irregular nodules/nodes in the right cardiophrenic space measuring up to 2.1 cm seen on imag e #47. These are suspicious for metastatic disease. There is mild intrahepatic biliary ductal dilatat ion. Skeletal structures: The skeletal structures are osteopenic. There is evidence of multifocal osteobla stic metastatic disease. Lesions are seen within the manubrium and body of the sternum, both scapulae , bilateral ribs, and the thoracic spine. IMPRESSION: 1. There is no evidence of pulmonary embolus in the main, lobar, or segmental pulmonary arteries. 2. Cardiomegaly with evidence of pulmonary artery hypertension. 3. There is no airspace consolidation or pleural effusion. 4. 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 Correlate with t he oncological history. 5. A pathologically enlarged right internal mammary lymph node, as well as enlarged right cardiophren ic nodes/implants are also suspicious for metastatic disease. 6. Advanced coronary artery atherosclerosis. 7. Additional findings as above. ACT 112: Negative or not required by law. Electronically signed by: Omar Gaytan M.D. 04/13/2025 12:59 PM
--- NOTE | 2025-04-13 13:12 | Emergency Department Note ---
ED Visit Note I was consulted by the Advanced Practice Provider, ADDY Cruz. I performed a substantive portion of the visit. This includes aspects of: History: Patient is a 74-year-old male presenting with epigastric abdominal pain. Symptoms started about an hour and half prior to arrival. He describes sharp stabbing pain in his epigastric region that radiates into his right upper quadrant. He was nauseous but has not vomited. Denies any chest pain or shortness of breath. MDM: - Laboratory workup in the emergency department showed a transaminitis as well as an elevated total bilirubin. Noted to have an elevated lipase at 85. Also noted to have a slightly elevated troponin levels. - CT abdomen/pelvis with IV contrast showed a pancreatic head mass with pancreatic ductal dilatation and superimposed pancreatitis. - Patient was medicated in the emergency department. Plan to admit to hospitalist service for further evaluation and management. .
[2025-04-13] MEDS: MoRPHine SULFATE 2 MG/ML CARP IV STA (13:15)
[2025-04-13] MEDS: SODIUM CHLORIDE 0.9% 1,000 ML IV SCH (13:37)
--- NOTE | 2025-04-13 14:50 | History & Physical Report ---
<Statement entered by Bertin Dia DO - 04/13/25 17:10> patient seen and examined #? acute pancreatitis -Fulfills diagnostic criteria with epigastric pain+ CT findings of acute pancreatitis however lipase not 3x ULN -Reviewed most recent CT as OP which also had similar findings of "acute pancreatitis" -He is s/p cholecystectomy -No clear etiology for this if this is true pancreatitis -Will give gentle hydration and not 5/10 cc/kg -Appreciate GI input #Afib -History of afib per patient but no documented history of such -He states he was diagnosed with it during a hospitalization in [place] where he was treated for sepsis -CHADSVASC 2 but will be three next year -RIsks and benefits of AC d/w patient, he has agreed for AC -Start heparin drip, transition to 5 BID eliquis likely prior to DC -CHeck TTE and TSH #Neuroendocrine malignancy. -CT findings today showing widespread bony metastases similar to prior CT -Unclear if this pancreatic lesion is causing his pain -He is not currently on chemotherapy and follows with oncology as OP Date of Service April 13, 2025 Assessment & Plan (1) Pancreatitis: (2) Atrial fibrillation with controlled ventricular rate: (3) Acute hyperglycemia: (4) Diabetes mellitus, type 2: (5) Hypertension: (6) Neuroendocrine carcinoma metastatic to liver: (7) Transaminitis: (8) Elevated bilirubin: Plan 74 year old male with PMH significant for type 2 diabetes, hypertension, protein calorie malnutrition, CKD III, and 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 Pancreatitis Patient presenting with epigastric pain Could be secondary to metastatic cancer, alcohol use, JENIFER-I/thiazide combo medication use Lipase 85 CTAP reveals 3cm pancreatic head mass with increased ductal dilatation distal to the mass - appears unchanged compared to prior CT in November 2024 NPO and MIVF GI consulted Atrial fibrillation Admitting EKG shows atrial fibrillation at a controlled rate Patient reports one other instance of atrial fibrillation when hospitalized with sepsis in [place] On metoprolol at home Heparin drip for now Echo ordered Cardiology consulted Acute hyperglycemia Type 2 diabetes Initial glucose 580 Secondary to cortisone injection for left hip arthritis yesterday Insulin drip with q1hr BSGs Transition to SQ insulin when sugars reach goal range of 140-180 Glycemic pharmacy consulted Hypertensive urgency BPs 190s/100s but patient asymptomatic IV metoprolol PRN Neuroendocrine carcinoma metastatic to liver Transaminitis, elevated bilirubin Follows with Heme Onc Dr Melgar last seen November 2024 Transaminitis and elevated bilirubin likely secondary to metastasis CTA chest revealed multifocal osteoblastic metastatic disease and a pathologically enlarged right internal mammary lymph node suspicious for metastatic disease Oncology consulted to review CT scans DVT Prophylaxis: low dose Heparin drip Code Status: FULL CODE - As per discussion at bedside with the patient. PCP: Mehdi Garcia Disposition: admit to telemetry Patient seen in collaboration with Dr Dia. Please see addendum. I spent a total of 75 minutes coordinating, documenting and providing care for this patient excluding time spent in the performance of separately billed services or time spent by another provider/QHP. 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 Patient reports that he was in his usual state of health yesterday but didn't feel great when he woke up this morning. He was having diarrhea the last few days, which is not unusual for him, and took immodium causing constipation. He was able to move his bowels twice this morning and ate breakfast. After breakfast while sitting in his office, he developed severe 10/10 epigastric pain that did not subside. This was reminiscent of a previous instance of pancreatitis when he was first diagnosed with cancer. He sought evaluation in the ED because of this. He reports the pain radiates across his r ight upper abdomen towards his back. He denies any fevers, chills, chest pain, palpitations, SOB, N/V. He lives at home with his and does not use any ambulatory aids. He reports that he was admitted to the hospital a few years ago for sepsis and was found to be in A fib at that time. He has had no recurrence since then that he knows of but does occasionally feel heart palpitations. He also has arthritis of his left hip for which he just received a cortisone injection yesterday. Allergies Allergy/AdvReac Type Severity Reaction Status Date / Time oxycodone [From OxyContin] AdvReac Unknown Nausea Verified 04/13/25 13:39 Home Medications Medication Instructions Recorded Confirmed Type aspirin 81 mg tablet,delayed 81 mg PO QAM 11/14/20 04/13/25 History release (Karlie Low Dose Aspirin) cholecalciferol (vitamin D3) 50 50 mcg PO QAM 11/14/20 04/13/25 History mcg (2,000 unit) capsule (Vitamin D3) multivitamin 1 tab PO QAM 11/14/20 04/13/25 History insulin degludec 100 unit/mL (3 8 unit subcut QAM 04/13/25 04/13/25 History mL) subcutaneous pen (Tresiba FlexTouch U-100 insulin) lisinopril 20 1 tab PO QAM 04/13/25 04/13/25 History mg-hydrochlorothiazide 25 mg tablet metoprolol tartrate 25 mg tablet 25 mg PO BID 04/13/25 04/13/25 History omega 3 350 mg-dha 235 mg-epa 90 1 cap PO QAM 04/13/25 04/13/25 History mg-fish oil 597 mg capsule,delay rel ([place]-3) Past Med/Surg History Problem List (Updated 04/13/25 @ 16:23 by Connor Wallace) Elevated LFTs (Acute) Pancreatitis (Acute) Acute hyperglycemia (Acute) Epigastric abdominal pain (Acute) Atrial fibrillation with controlled ventricular rate Arthritis of left hip Hypertensive heart disease DVT prophylaxis Asymptomatic hypertensive urgency Acute hyperglycemia (Acute) Abnormal ECG (Acute) Elevated bilirubin (Acute) Transaminitis (Acute) Encounter for pre-operative examination Malignant carcinoid tumor of small intestine 2016, Follows with oncology (Dr. Melgar), s/p surgery plus monthly injection Neuroendocrine carcinoma metastatic to liver (Acute) 2016, Follows with oncology (Dr. Melgar), s/p surgery plus monthly injection Diabetes mellitus, type 2 IDDM Hypertension Pancreatitis (Acute) Alcohol use (Chronic) H/O colonoscopy (Chronic) "01/12/2012 COLONOSCOPY FLEXIBLE PROXIMAL DIAGNOSTIC performed by DIANELYS SNYDER at [facility], ADENOMATOUS POLYPS REPEAT COLONOSCOPY IN 3 YEARS" Tobacco abuse (Chronic) S/P ORIF (open reduction internal fixation) fracture (Chronic) HTN (hypertension) (Chronic) Medical History (Updated 04/13/25 @ 16:23 by Connor Wallace) HTN (hypertension) Diabetes IDDM Neuroendocrine carcinoma 2016, Follows with oncology (Dr. Melgar), s/p surgery Hypertensive heart disease Arthritis Hx of sepsis (2020) Hx of pancreatitis (2015) Bifascicular block no cardio Surgical History Hx of cataract extraction left History of open reduction and internal fixation (ORIF) procedure right leg History of cholecystectomy History of appendectomy History of bowel resection small intestine and tumor removal History of esophagogastroduodenoscopy (EGD) History of colonoscopy Social History (Updated 04/13/25 @ 15:51 by ADDY Anglin) Smoking Status: Former smoker Tobacco Type: Cigarettes Second Hand Exposure: No; Do You Dip or Chew Tobacco: No; Hx Alcohol Use: Yes Alcohol type: wine Alcohol Intake Frequency: 4 or More x per/Week Hx Substance Use: No Preferred Language: Frisian Communication Ability: Effective Licensed Electrician Required: No Beliefs That Will Affect Care: None Current Living Situation: Spouse Feels Safe at Home: Yes Assistive Devices: Contacts and Glasses Review of Systems Review of Systems: All systems reviewed & are unremarkable except as noted in HPI & below Physical Exam Physical Exam: General/Psych: frail appearing, sitting up in bed, NAD, conversing easily Head: normocephalic, atraumatic Eyes: normal inspection, PERRL, conjunctivae pink ENT: external ear and nose normal, oropharynx normal Neck: normal visual inspection, trachea midline Respiratory: normal respiratory effort, lungs clear to auscultation, no wheeze/rales/rhonchi, no accessory muscle use Cardiovascular: irregularly irregular rate and rhythm, no murmur/rub/gallop, no JVD Extremities: no cyanosis or clubbing, normal peripheral pulses, no BLE edema Abdomen/GI: normal bowel sounds, soft, tender on palpation of epigastric region Neurologic/MSK: A+Ox3, motor strength 5/5, moves all extremities Skin: no rashes, normal color, warm and dry Results & Data Results & Data Vital Signs (Past 12 Hours) Vital Signs Temp Pulse Resp BP Pulse Ox O2 Del Method 04/13/25 14:33 78 16 191/116 H 97 04/13/25 14:27 89 15 191/116 H 85 L 04/13/25 13:00 87 16 197/125 H 97 04/13/25 12:00 198/125 H 04/13/25 12:00 82 18 198/125 H 99 04/13/25 11:52 77 04/13/25 11:30 79 18 185/128 H 96 04/13/25 11:15 80 20 98 Room Air 04/13/25 11:09 189/130 H 04/13/25 10:55 36.6 C 83 18 211/107 H 99 Room Air Laboratory Results Short CBC 04/13/25 Range/Units 11:05 WBC 7.45 (4.8-10.8) K/ul Hgb 12.9 L (14.0-18.0) g/dl Hct 35.3 L (42.0-52.0) % Plt Count 202 (130-400) K/uL BMP 04/13/25 11:05 Sodium 127 L Potassium 4.4 Chloride 87 L Carbon Dioxide 30 BUN 28 H Creatinine 1.36 Glucose 580 H* Calcium 9.7 Liver Function 04/13/25 Range/Units 11:05 Total Bilirubin 2.3 H (0.2-1.0) mg/dl AST 49 H (13-39) U/L ALT 88 H (7-52) U/L Alkaline Phosphatase 335 H (34-104) U/L Albumin 4.2 (3.4-5.0) gm/dl Urine 04/13/25 Range/Units 12:17 Urine Color Yellow Urine Appearance Clear (Clear) Urine pH 5.5 (4.5-7.5) Ur Specific Wayne 1.033 H (1.000-1.030) Urine Protein Negative (Negative) Urine Glucose (UA) 3+ H (Negative) I have independently reviewed and interpreted patient's admitting labs including CBC, CMP, mag, troponin, UA. Diagnostic Findings Abdomen/Pelvis CT 04/13/25 11:[address] WITH IV CONTRAST CT DOSE: 761.03 mGy.cm HISTORY: EPIGASTRIC ABD PAIN TECHNIQUE: Multiaxial CT images of the abdomen and pelvis were performed fo llowing the IV administration of 120 cc of Optiray, A dose lowering technique was utilized adhering to the principles of ALARA. COMPARISON STUDY: 11/15/2020 FINDINGS: ABDOMEN: Stable left hepatic lobe resection. Gallbladder is surgically absent. Otherwise the liver, spleen, and adrenal glands are unremarkable. Kidneys show no hydronephrosis. There are scattered atherosclerotic calcifications. No abdominal aortic aneurysm. There is increased dilatation of the pancreatic duct. There is mild stranding adjacent to the pancreas. No significant peripancreatic fluid or pseudocyst. There is increased prominence of the pancreatic head with irregular margins measuring approximately 3 x 3 cm. There are is interval loculated branching finding anterior to the upper liver measuring 2 cm series 6 image 56. Pelvis: Prostate is enlarged. Urinary bladder is distended. There is extensive sigmoid diverticulosis. There is wall thickening through the region of diverticulosis. There is possible mild inflammation versus wall edema from trace ascites. No other bowel inflammation or obstruction seen. No free fluid, free air, or abscess otherwise. No enlarged adenopathy. There is mild anasarca. Osseous structures: There is moderate lumbar degenerative disc disease. There are moderate to severe degenerative changes at the hips. IMPRESSION: 1. Possible 3 cm pancreatic head mass with increased pancreatic ductal dilatation distal to the mass. Possible superimposed minimal pancreatitis. 2. Interval small finding anterior to the liver. Differential diagnosis includes mass/metastatic disease, ectopic pancreatic tissue, and other finding. 3. Mild acute uncomplicated sigmoid diverticulitis versus mild diffuse colitis, versus mild bowel edema due to trace ascites. No bowel obstruction seen. 4. Otherwise as described. ACT 112: Positive. There are findings on this exam that require communication between the performing entity and the patient following Patient Test Result Information Act ([place] Act 112) guidelines. The above report was generated using voice recognition software. It may contain grammatical, syntax or spelling errors. Electronically signed by: Clint Mccarthy M.D. 04/13/2025 12:56 PM Chest CTA 04/13/25 11:15 CT ANGIOGRAM OF THE CHEST CLINICAL HISTORY: Epigastric abdominal pain. COMPARISON STUDY: Chest CT dated 03/04/2016. TECHNIQUE: Following the IV administration of 119 cc of Optiray 320, CT angiogram of the chest was performed from the upper abdomen to the thoracic inlet utilizing the pulmonary embolus protocol. Images are reviewed in the axial, sagittal, and coronal planes. 3-D MIPS images are created and assessed. IV contrast was administered without complication. A dose lowering technique was utilized adhering to the principles of ALARA. FINDINGS: Thyroid: Imaged portions of the thyroid gland are normal in size and attenuation. Thoracic aorta: There is atherosclerotic calcification of the thoracic aorta, which is normal in caliber and demonstrates 4-vessel variant arch anatomy. The thoracic aorta is not opacified. Pulmonary vasculature: The pulmonary trunk is dilated, measuring 3.5 cm diameter. This suggests pulmonary artery hypertension. There are no filling defects identified in main, lobar, or segmental pulmonary branches to suggest pulmonary embolus. Heart: The heart is enlarged and without pericardial effusion. The coronary arteries are densely calcified. Lungs and pleural spaces: There is no airspace consolidation or pleural effusion. The trachea and central airways are clear. There are scattered calcified granulomas. Linear scarring/atelectasis is noted at the right lung base. A fat-containing Bochdalek hernia is seen on the left. Mediastinum: There is no mediastinal lymphadenopathy. An enlarged right internal mammary lymph node on image #140 measures 1.2 x 0.8 cm. Samara: Clear. Axillae: There is no axillary lymphadenopathy. Upper abdomen: A small hiatal hernia is noted. There is postsurgical change from left hepatic lobe resection. Irregular nodules/nodes in the right cardiophrenic space measuring up to 2.1 cm seen on image #47. These are suspicious for metas tatic disease. There is mild intrahepatic biliary ductal dilatation. Skeletal structures: The skeletal structures are osteopenic. There is evidence of multifocal osteoblastic metastatic disease. Lesions are seen within the manubrium and body of the sternum, both scapulae, bilateral ribs, and the thoracic spine. IMPRESSION: 1. There is no evidence of pulmonary embolus in the main, lobar, or segmental pulmonary arteries. 2. Cardiomegaly with evidence of pulmonary artery hypertension. 3. There is no airspace consolidation or pleural effusion. 4. 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 Correlate with the oncological history. 5. A pathologically enlarged right internal mammary lymph node, as well as enlarged right cardiophrenic nodes/implants are also suspicious for metastatic disease. 6. Advanced coronary artery atherosclerosis. 7. Additional findings as above. ACT 112: Negative or not required by law. Electronically signed by: Omar Gaytan M.D. 04/13/2025 12:59 PM ECG Additional Comments: I have independently reviewed and interpreted patient's admitting EKG which revealed: atrial fibrillation at a rate of 87 bpm Code Status & VTE Plan Code Status Full Code VTE Prophylaxis Plan VTE Prophylaxis will be ordered: Yes
[2025-04-13] MEDS ORDERED: STAT IV Infusion **Titration per Protocol STA ×2 (14:55→15:17)
[2025-04-13] MEDS ORDERED: INSULIN REGULAR 250 UNITS in SODIUM CHLORIDE 0.9% 247.5 ML IV SCH ×2 (15:00→15:54)
[2025-04-13 15:44] LABS: Thyroid Stimulating Hormone 1.693 uIu/ml (0.300-4.500)
--- NOTE | 2025-04-13 15:52 | Cardiology Consultation ---
Date of Consultation April 13, 2025 Assessment & Plan (1) Atrial fibrillation with controlled ventricular rate: (2) Abdominal pain: (3) HTN (hypertension): (4) Neuroendocrine carcinoma metastatic to liver: Plan Complex 74 year old admitted with abdominal pain with underlying history of neuroendocrine carcinoma/pancreatic mass, possible pancreatitis. Incidentally found to have atrial fibrillation with controlled rate on admission. Duration uncertain. Asymptomatic. Continue metoprolol tartrate 25 mg BID for rate control. Anticoagulation discussed with patient. Platelet count and hbg acceptable. No history of significant GI bleed. CHADSVASC score of 2, but with underlying CA diagnosis, this increases his stroke risk as well He is agreeable to anticoagulation if indicated Start IV heparin with caution. Monitor Hbg and platelets. Consider transitioning to Eliquis later during hospitalization after abdominal complaints have been further defined or resolved. Unclear whether he will need additional testing/procedures at this time. Duration of afib is uncertain Update echo to assess LVEF, valvular disease and LA size. Ongoing rate control strategy recommended for now. Uncontrolled HTN noted on admission - asymptomatic -Likely due to acute abdominal pain -continue metoprolol tartrate -If remains uncontrolled, increase home dose lisinopril to 40 mg. (Previously on lisinopril/hctz ) -consider adding amlodipine Possible pancreatitis with underlying Neuroendocrine CA with liver, bone, pancreatic METS - follows with hematology. Not currently on treatment. -worsening abdominal pain -pain management per hospitalist. Hyperglycemia with hyponatremia -treatment per hospitalist Case discussed with Dr. Johnston I spent a total of 60 minutes on the date of service in preparation, delivery, and documentation of the care provided to this patient, excluding any time spent in the performance of separately billed services. Marbella Bains PA-C Department of Cardiology, [facility] This chart was completed in part utilizing Speech Voice Recognition Software. Grammatical errors, random word insertions, pronoun errors, and incomplete sentences are an occasional consequence of this system due to software limitations, ambient noise, and hardware issues. Any formal questions or concerns about the content, text, or information contained within the body of this dictation should be directly addressed to the provider for clarification. Supervising Physician Co-Signing Physician Notes Attending attestation: Case reviewed with the advanced practitioner. I have personally performed a history and physical examination on the patient. I have reviewed the advanced practitioner's documentation on the date of service referenced in note, and I agree with, and take responsibility for the plan of care. Atrial fibrillation with appears to be an incidental finding with no symptoms of chest discomfort, shortness of breath, or decreased exercise tolerance. Presen ting symptom with abdominal discomfort. Duration of atrial fibrillation uncertain. Notes having had an episode of self-limited atrial fibrillation about 5 years ago in the setting of sepsis. Anticipate hypertension may improve after his pain improves. Continue [employer] metoprolol.Cautiously at heparin for stroke prophylaxis given stroke risk, question noted due to possible pancreatitis. I spent a total of 20 minutes coordinating, documenting, and providing care for this patient excluding time spent in the performance of separately billed services or time spent by another provider. Donald Johnston, DO History of Present Illness Reason for Consultation: Atrial fibrillation Requesting Physician: Terry Caliist Attending Physician: Dr. Johnston History of Present Illness Patient is a 74 year old male who presented to [facility] the morning of 04/13 with abdominal pain. Extensive history reviewed: 1. 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 Melgar) 2. Hypertension 3. DM type II 4. Remote history of PAF in [place] during episode of sepsis Upon admission, patient found to be hyperglycemic with glucose > 500, hyponatremic, with elevated LFT's, elevated lipase and findings of possible pancreatitis on CT scan along with pancreatic mass. This has been previously detailed in outpatient notes as well. Current CT measured 3.[address] scan from November 2024 measuring 3.6 cm pancreatic mass He was incidentally found to have atrial fibrillation with controlled rates in the 80's on arrival. Duration of afib is unknown. Patient reports intermittent palpitations, but this is not new. He golfs 3 times per week and without exertional symptoms. He does admit to being more tired recently after golf, but complaints are fairly non specific. No exertional chest pain or dyspnea. He reports chronic LE edema and wears compression stockings. He takes lisinopril/HCTZ for HTN and edema. He is also on metoprolol tartrate 25 mg BID. This was started about 5 years ago when patient was found to have atrial fibrillation in [place]. He was not started on anticoagulation at the time as he converted to NSR per his recollection. EKG in [facility] in 2022 revealed sinus bradycardia with 1st degree AV block, RBBB/LAFB No history of GI bleeding or significant anemia. Hbg is stable. There is reports of low platelet count during chemotherapy treatments but this is now improved/normalized. At time of consult, patient resting in bed. Abdominal pain has improved since admission but not fully resolved. No current complaints of chest pain, dyspnea, palpitations or dizziness. His BP is significantly uncontrolled in the ER. No headaches or vision changes. He reports he took his metoprolol and lisinopril/hctz this morning as normal. He denies other history of cardiovascular issues. Allergies Allergy/AdvReac Type Severity Reaction Status Date / Time oxycodone [From OxyContin] AdvReac Unknown Nausea Verified 04/13/25 13:39 Home Medications Medication Instructions Recorded Confirmed Type aspirin 81 mg tablet,delayed 81 mg PO QAM 11/14/20 04/13/25 History release (Karlie Low Dose Aspirin) cholecalciferol (vitamin D3) 50 50 mcg PO QAM 11/14/20 04/13/25 History mcg (2,000 unit) capsule (Vitamin D3) multivitamin 1 tab PO QAM 11/14/20 04/13/25 History insulin degludec 100 unit/mL (3 8 unit subcut QAM 04/13/25 04/13/25 History mL) subcutaneous pen (Tresiba FlexTouch U-100 insulin) lisinopril 20 1 tab PO QAM 04/13/25 04/13/25 History mg-hydrochlorothiazide 25 mg tablet metoprolol tartrate 25 mg tablet 25 mg PO BID 04/13/25 04/13/25 History omega 3 350 mg-dha 235 mg-epa 90 1 cap PO QAM 04/13/25 04/13/25 History mg-fish oil 597 mg capsule,delay rel ([place]-3) Patient History Medical History (Updated 04/13/25 @ 16:23 by Connor Wallace) HTN (hypertension) Diabetes IDDM Neuroendocrine carcinoma 2015, Follows with oncology (Dr. Melgar), s/p surgery Hypertensive heart disease Arthritis Hx of sepsis (2020) Hx of pancreatitis (2015) Bifascicular block no cardio Surgical History Hx of cataract extraction left History of open reduction and internal fixation (ORIF) procedure right leg History of cholecystectomy History of appendectomy History of bowel resection small intestine and tumor removal History of esophagogastroduodenoscopy (EGD) History of colonoscopy Social History (Updated 04/13/25 @ 15:51 by DADY Anglin) Smoking Status: Former smoker Tobacco Type: Cigarettes Second Hand Exposure: No; Do You Dip or Chew Tobacco: No; Hx Alcohol Use: Yes Alcohol type: wine Alcohol Intake Frequency: 4 or More x per/Week Hx Substance Use: No Preferred Language: Welsh Communication Ability: Effective [employer]er[employer] Supervisor Required: No Beliefs That Will Affect Care: None Current Living Situation: Spouse Feels Safe at Home: Yes Assistive Devices: Contacts and Glasses Review of Systems Review of Systems: All systems reviewed & are unremarkable except as noted in HPI & below Physical Exam Constitutional: WD/WN, vitals as above + thin; no acute distress Neck: trachea midline, no thyromegaly Respiratory: normal respiratory effort; no labored breathing Auscultation: lungs clear to auscultation bilaterally Cardiovascular: Rate/Rhythm: + irregularly irregular Heart Sounds: normal S1 and normal S2; no murmur Vessels: no JVD Extremities: + edema (trace to 1+ pretibial edema. compression stockings in place) Gastrointestinal (Abdomen): Inspection/Auscultation: abdomen normal to inspection Percussion/Palpation: abdomen soft Neurologic: PERRL, EOMI, accommodation nl, no face palsy, no dysarthria Results & Data Vital Signs (Past 12 Hours) Vital Signs Temp Pulse Resp BP Pulse Ox O2 Del Method 04/13/25 14:33 78 16 191/116 H 97 04/13/25 14:27 89 15 191/116 H 85 L 04/13/25 13:00 87 16 197/125 H 97 04/13/25 12:00 198/125 H 04/13/25 12:00 82 18 198/125 H 99 04/13/25 11:52 77 04/13/25 11:30 79 18 185/128 H 96 04/13/25 11:15 80 20 98 Room Air 04/13/25 11:09 189/130 H 04/13/25 10:55 36.6 C 83 18 211/107 H 99 Room Air Laboratory Results Cardiac Enzymes 04/13/25 Range/Units 11:05 AST 49 H (13-39) U/L Troponin I High Sens 12.7 (0-20) pg/ml CBC 04/13/25 Range/Units 11:05 WBC 7.45 (4.8-10.8) K/ul RBC 3.55 L (4.70-6.10) M/uL Hgb 12.9 L (14.0-18.0) g/dl Hct 35.3 L (42.0-52.0) % Plt Count 202 (130-400) K/uL Neut # (Auto) 6.29 (1.40-6.50) K/uL Lymph # (Auto) 0.41 L (1.20-3.40) K/uL Esmeralda # (Auto) 0.71 H (0.11-0.59) K/uL Eos # (Auto) 0.00 (0.00-0.50) K/uL Baso # (Auto) 0.00 (0.00-0.20) K/uL Comprehensive Metabolic Panel 04/13/25 Range/Units 11:05 Sodium 127 L (136-145) mmol/L Potassium 4.4 (3.5-5.1) mmol/L Chloride 87 L (98-107) mmol/L Carbon Dioxide 30 (21-32) mmol/L BUN 28 H (6-23) mg/dl Creatinine 1.36 (0.6-1.4) mg/dl Glucose 580 H* (70-99(Fasting)) mg/dl Calcium 9.7 (8.6-10.3) mg/dl AST 49 H (13-39) U/L ALT 88 H (7-52) U/L Alkaline Phosphatase 335 H (34-104) U/L Total Protein 8.0 (6.0-8.3) gm/dl Albumin 4.2 (3.4-5.0) gm/dl Intake and Output 04/13/25 04/13/25 04/13/25 06:59 14:59 22:59 Intake Total 1000 / 1000 Balance 1000 / 1000 Intake: IV 1000 / 1000 Sodium Chloride 0.9% 1,000 ml @ 1000 / 1000 999 mls/hr IV .Q1H1M [facility] Rx#: [id number] Other: Weight 58.5 kg Weight Measurement Method Chair Scale Patient Weight 04/14/25 06:59 Weight 58.5 kg Diagnostic Findings Telemetry reviewed: Afib with variable rates, mostly ranging 80-100 bmp EKG on arrival: Atrial fibrillation at 87 bpm with PVCs RBBB LAFB Possible old septal infarct No acute ischemic changes When compared with prior EKG in [facility] in Sep 2022 - Afib is new. T wave inversions previously noted in inferolateral leads have improved Abdomen/Pelvis CT 04/13/25 11:15 IMPRESSION: 1. Possible 3 cm pancreatic head mass with increased pancreatic ductal dilatation distal to the mass. Possible superimposed minimal pancreatitis. 2. Interval small finding anterior to the liver. Differential diagnosis includes mass/metastatic disease, ectopic pancreatic tissue, and other finding. 3. Mild acute uncomplicated sigmoid diverticulitis versus mild diffuse colitis, versus mild bowel edema due to trace ascites. No bowel obstruction seen. 4. Otherwise as described. Chest CTA 04/13/25 11:15 CT ANGIOGRAM OF THE CHEST IMPRESSION: 1. There is no evidence of pulmonary embolus in the main, lobar, or segmental pulmonary arteries. 2. Cardiomegaly with evidence of pulmonary artery hypertension. 3. There is no airspace consolidation or pleural effusion. 4. 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 Correlate with the oncological history. 5. A pathologically enlarged right internal mammary lymph node, as well as enlarged right cardiophrenic nodes/implants are also suspicious for metastatic disease. 6. Advanced coronary artery atherosclerosis. 7. Additional findings as above. Medications Administered Current Inpatient Medications Lactated Ringer's (Lr) 1,000 mls @ 100 mls/hr IV .Q10H [facility] Stop: 04/16/25 14:59 Insulin Human Regular 250 (units/ Sodium Chloride) 250 mls @ 1.4 mls/hr IV .Q24H [facility]; Protocol Stop: 05/13/25 15:59 Insulin Aspart (Insulin Aspart Per Unit Charge) 0 units SC ACHS [facility] Stop: 05/13/25 16:29 PG Care Time/CCT Total # of Minutes Spent Total Time Spent with Patient: Total time spent is greater than 50% in coordination of care (as documented) at patient's floor/unit and/or counseling patient: 60 minutes Coding Level of Care Code 27929 OFFICE CONSULT LVL 5/55M Diagnoses Atrial fibrillation with controlled ventricular rate I48.91 Abdominal pain R10.9 HTN (hypertension) I10 Neuroendocrine carcinoma metastatic to liver C7A.8; C7B.8 Time Spent (min) 80 Comment 60 minutes by Juan Miguel Bains PA-C, [address] Johnston
[2025-04-13] MEDS ORDERED: ONDANSETRON INJ 2 MG/ML 2 ML VIAL IV PRN (15:54)
[2025-04-13] MEDS ORDERED: PHARMACY GLYCEMIC MGMT CONSULT PRN (15:54)
[2025-04-13] MEDS ORDERED: CARBOHYDRATES FOR HYPOGLYCEMIA PO PRN (16:00)
[2025-04-13] MEDS ORDERED: GLUCAGON FOR INJ 1 MG VIAL SQ PRN (16:00)
[2025-04-13] MEDS ORDERED: GLUCOSE 10 TAB/TUBE PO PRN (16:00)
[2025-04-13] MEDS ORDERED: GLUCOSE 40% GEL 15 GM TUBE PO PRN (16:00)
[2025-04-13] MEDS: INSULIN REGULAR 250 UNITS in SODIUM CHLORIDE 0.9% 247.5 ML IV SCH (16:08)
[2025-04-13] MEDS: LACTATED RINGER'S 1,000 ML IV SCH (16:08)
[2025-04-13] MEDS: INSULIN PROTOCOL GOAL RANGE ONE (16:25)
[2025-04-13] MEDS: MODERATE STRESS LEVEL ONE (16:26)
[2025-04-13] MEDS ORDERED: INSULIN ASPART PER UNIT CHARGE SC SCH ×2 (16:30)
[2025-04-13] MEDS: HEPARIN 25000 UNIT/500 ML D5W 25,000 UNITS/500 ML BAG IV SCH (16:33)
[2025-04-13] MEDS: Heparin IV Adult Wt-Based Low-Dose *NO* INITIAL Bolus Protocol IV STA (16:33)
[2025-04-13] MEDS: INSULIN ASPART PER UNIT CHARGE SC SCH (17:46)
[2025-04-13] MEDS ORDERED: MoRPHine SULFATE 2 MG/ML CARP IV PRN (19:43)
[2025-04-13] MEDS: ACETAMINOPHEN 1,000 MG/100 ML VIAL IV PRN (20:36)
[2025-04-13] MEDS: METOPROLOL TARTRATE 25 MG TAB PO SCH (20:37)
[2025-04-13] MEDS: D5W AND LACTATED RINGERS 1,000 ML IV SCH (21:38)
[2025-04-13] MEDS: LANTUS PER UNIT CHARGE SC ONE (22:46)
[2025-04-13 23:47] LABS: ANTI-Xa, UFH(UnfractionatedHep 0.16 IU/ml (0.3-0.7)
[2025-04-14] MEDS: HEPARIN SOD (PORCINE) 1000 UNIT/ML IV ONE ×2 (00:22→07:43)
[2025-04-14] MEDS: INSULIN ASPART PER UNIT CHARGE SC SCH ×2 (00:29→22:01)
[2025-04-14] MEDS: DEXTROSE 50% 50 ML SYRINGE IV PRN (05:55)
[2025-04-14 06:28] LABS: Hematocrit (blood only) 34.7 % (42.0-52.0); Hemoglobin 12.4 g/dl (14.0-18.0); Mean Corpuscular Hemoglobin 35.5 pg (25.0-34.0); Mean Corpuscular Volume 99.4 fL (80.0-100.0); Platelet Count 168 K/uL (130-400); RDW Standard Deviation 50.4 fL (36.4-46.3); Red Blood Count 3.49 M/uL (4.70-6.10); White Blood Count 9.65 K/ul (4.8-10.8)
[2025-04-14 06:49] LABS: ANTI-Xa, UFH(UnfractionatedHep 0.19 IU/ml (0.3-0.7)
[2025-04-14 06:55] LABS: INR 1.0 (0.9-1.1); Partial Thromboplastin Time 32 Seconds (21-31); Prothrombin Time 11.1 Seconds (9.0-12.0)
[2025-04-14 06:56] LABS: Anion Gap 4.0 (3-11); Blood Urea Nitrogen 23.0 mg/dl (6-23); Calcium 9.3 mg/dl (8.6-10.3); Carbon Dioxide 35.0 mmol/L (21-32); Chloride 91.0 mmol/L (98-107); Creatinine Clr Calc Pharmacy 49.2 ml/min; Glucose 134.0 mg/dl (70-99(Fasting)); Magnesium 1.6 mg/dl (1.7-2.4); Potassium 4.1 mmol/L (3.5-5.1); Sodium 130.0 mmol/L (136-145)
[2025-04-14] MEDS ORDERED: INSULIN ASPART PER UNIT CHARGE SC SCH (07:30)
[2025-04-14 07:34] LABS: Hemoglobin A1C 7.8 % (4.5-5.6)
[2025-04-14] MEDS: MAGNESIUM SULFATE / D5W 1 GM/100 ML BAG IV ONE (07:49)
[2025-04-14 08:06] LABS: Alanine Aminotransferase 66.0 U/L (7-52); Alkaline Phosphatase 273.0 U/L (34-104); Bilirubin,Total 2.2 mg/dl (0.2-1.0); Lipase 60.0 U/L (11-82); Total Protein 6.6 gm/dl (6.0-8.3)
[2025-04-14 08:25] LABS: Immature Granulocytes # (auto) 0.04 K/uL (0.01-0.20); Immature Granulocytes % (auto) 0.4 %
[2025-04-14] MEDS: ASPIRIN 81 MG ECTAB PO SCH (08:30)
[2025-04-14] MEDS ORDERED: LISINOPRIL/HCTZ 20/25MG 1 TAB PO SCH (09:00)
--- NOTE | 2025-04-14 10:09 | Cardiology Progress Note ---
Date of Service April 14, 2025 Assessment & Plan (1) Atrial fibrillation with controlled ventricular rate: (2) Abdominal pain: (3) HTN (hypertension): (4) Neuroendocrine carcinoma metastatic to liver: Plan Complex 74 year old admitted with abdominal pain with underlying history of neuroendocrine carcinoma/pancreatic mass, possible pancreatitis. Incidentally found to have atrial fibrillation with controlled rate on admission. Duration uncertain. Asymptomatic. Recommendations 04/14/25 Persistent afib, likely chronic (duration unknown) -rates controlled on home dose metoprolol tartrate 25 mg BID -IV heparin initiated. CBC stable -CHADSVASC score of 2 (age/HTN), soon to be 3 - anticoagulation recommended. -As long as no further GI work up is needed, would transition to Eliquis 5 mg BID upon discharge -Please verify affordability with case management - message sent to nurse to notify rehabilitation caseworker -echo this morning with preserved LVEF, moderate MR, moderate enlargement of LA, suggesting afib has been persistent for awhile -Ongoing rate control strategy recommended given his lack of symptoms. Uncontrolled HTN noted on admission - asymptomatic -Likely due to acute abdominal pain -continue metoprolol tartrate and lisinopril -BP trending downward this morning. -If remains uncontrolled, increase home dose lisinopril to 40 mg. (Previously on lisinopril/hctz ) -could also consider adding amlodipine Possible pancreatitis with underlying Neuroendocrine CA with liver, bone, pancreatic METS - follows with hematology. Not currently on treatment. -worsening abdominal pain -management per hospitalist -patient is NPO this morning Hyperglycemia with hyponatremia -improving labs today -treatment per hospitalist Case discussed with Dr. Johnston I spent a total of 40 minutes on the date of service in preparation, delivery, and documentation of the care provided to this patient, excluding any time spent in the performance of separately billed services. Marbella Bains PA-C Department of Cardiology, [facility] This chart was completed in part utilizing Speech Voice Recognition Software. Grammatical errors, random word insertions, pronoun errors, and incomplete sentences are an occasional consequence of this system due to software l imitations, ambient noise, and hardware issues. Any formal questions or concerns about the content, text, or information contained within the body of this dictation should be directly addressed to the provider for clarification. Admission and Anticipated Discharge Date Admission Date: April 13, 2025 Supervising Physician Co-Signing Physician Notes Attending attestation: Case reviewed with the advanced practitioner. I have personally performed a history and physical examination on the patient. I have reviewed the advanced practitioner's documentation on the date of service referenced in note, and I agree with, and take responsibility for the plan of care. Rate controlled AF noted on telemetry. Small pleural effusions, mild ascites noted on MRCP. Consider furosemide 20 daily instead of HCTZ (which is currently on hold) after hyponatremia improves. Transition to Eliquis after abdominal pain work up completed. Outpatient cardiology follow up to be arranged. Cardiology to sign off. Call with questions or concerns. I spent a total of 20 minutes coordinating, documenting, and providing care for this patient excluding time spent in the performance of separately billed services or time spent by another provider. Donald Johnston, Subjective Patient resting in bed comfortably. Abdominal pain improving. No symptoms of CP/SOB/palpitations. No dizziness. HR well controlled in afib on monitor. BP trending down this morning. Review of Systems Review of Systems: All systems reviewed & are unremarkable except as noted in HPI & below Physical Exam Constitutional: WD/WN, vitals as above + thin; no acute distress Neck: trachea midline, no thyromegaly Respiratory: normal respiratory effort; no labored breathing Auscultation: lungs clear to auscultation bilaterally Cardiovascular: Rate/Rhythm: + irregularly irregular Heart Sounds: normal S1 and normal S2; no murmur Vessels: no JVD Extremities: + edema (trace to 1+ pretibial edema. compression stockings in place) Gastrointestinal (Abdomen): Inspection/Auscultation: abdomen normal to inspection Percussion/Palpation: abdomen soft Neurologic: PERRL, EOMI, accommodation nl, no face palsy, no dysarthria Results & Data Vital Signs (Past 12 Hours) Vital Signs Temp Pulse Pulse Resp BP Pulse Ox O2 Del Method 04/14/25 07:15 36.9 C 69 18 149/92 H 98 Room Air 04/14/25 04:25 147/86 H 04/14/25 02:53 36.8 C 63 18 152/85 H 97 Room Air 04/14/25 02:16 168/99 H 04/14/25 00:03 72 04/13/25 23:07 36.6 C 66 18 168/93 H 99 Room Air Laboratory Results Cardiac Enzymes 04/13/25 04/14/25 Range/Units 11:05 06:10 AST 49 H 42 H (13-39) U/L Troponin I High Sens 12.7 (0-20) pg/ml Coagulation 04/14/25 Range/Units 06:10 PT 11.1 (9.0-12.0) Seconds APTT 32 H (21-31) Seconds CBC 04/13/25 04/14/25 Range/Units 11:05 06:10 WBC 7.45 9.65 (4.8-10.8) K/ul RBC 3.55 L 3.49 L (4.70-6.10) M/uL Hgb 12.9 L 12.4 L (14.0-18.0) g/dl Hct 35.3 L 34.7 L (42.0-52.0) % Plt Count 202 168 (130-400) K/uL Neut # (Auto) 6.29 8.52 H (1.40-6.50) K/uL Lymph # (Auto) 0.41 L 0.55 L (1.20-3.40) K/uL [place]y # (Auto) 0.71 H 0.84 H (0.11-0.59) K/uL Eos # (Auto) 0.00 0.00 (0.00-0.50) K/uL Baso # (Auto) 0.00 0.02 (0.00-0.20) K/uL Comprehensive Metabolic Panel 04/13/25 04/14/25 Range/Units 11:05 06:10 Sodium 127 L 130 L (136-145) mmol/L Potassium 4.4 4.1 (3.5-5.1) mmol/L Chloride 87 L 91 L (98-107) mmol/L Carbon Dioxide 30 35 H (21-32) mmol/L BUN 28 H 23 (6-23) mg/dl Creatinine 1.36 1.09 (0.6-1.4) mg/dl Glucose 580 H* 134 H (70-99(Fasting)) mg/dl Calcium 9.7 9.3 (8.6-10.3) mg/dl Direct Bilirubin 1.0 H (0-0.2) mg/dl AST 49 H 42 H (13-39) U/L ALT 88 H 66 H (7-52) U/L Alkaline Phosphatase 335 H 273 H (34-104) U/L Total Protein 8.0 6.6 (6.0-8.3) gm/dl Albumin 4.2 3.7 (3.4-5.0) gm/dl Intake and Output 04/13/25 04/14/25 04/14/25 22:59 06:59 14:59 Intake Total 854.104 / 2294.237 440.133 / 2294.237 114.133 / 114.133 Balance 854.104 / 2294.237 440.133 / 2294.237 114.133 / 114.133 Intake: IV 854.104 / 2294.237 440.133 / 2294.237 114.133 / 114.133 Acetaminophen 1,000 mg In 100 100 / 100 ml @ 400 mls/hr IV Q8H PRN Rx#: [id number] D5w and Lactated Ringers 1,000 78.333 / 78.400 0.067 / 78.400 ml @ 100 mls/hr IV .Q10H [facility] Rx #:[id number] Heparin 24004 Unit/500 ml D5w 39.667 / 106.400 66.733 / 106.400 114.133 / 114.133 25,000 units In 500 ml @ 800 UNITS/HR 16 mls/hr IV .Q24H [facility] Rx#:[id number] Insulin Regular 250 units In 9.437 / 9.437 0 / 9.437 Sodium Chloride 0.9% 247.5 ml @ 0 UNITS/HR IV .Q0M [facility] Rx#: [id number] Lactated Ringer's 1,000 ml @ 0 / 373.333 373.333 / 373.333 100 mls/hr IV .Q10H [facility] Rx#: [id number] Other: Other Intake Source NPO NPO # Unmeasured Voids 2 1 1 Weight 58.5 kg 59.8 kg Weight Measurement Method Chair Scale Built in [facility] Patient Weight 04/15/25 06:59 Weight 59.8 kg Diagnostic Findings Telemetry reviewed: Afib with controlled ventricular rates in the 70-80's. Occ PVC Echo reviewed from this morning: Mild concentric LVH LVEF 55-60% RV is normal in size and function LA is moderately dilated Moderate MR Mild TR Aortic root is mildly dilated at 4.0 cm Medications Administered Current Inpatient Medications Aspirin (Aspirin 81 Mg Ectab) 81 mg PO QAM [facility] Stop: 05/14/25 08:59 Last Admin: 04/14/25 08:30 Dose: 81 mg Dextrose (Dextrose 50% 50 Ml Syringe) 25 - 50 ml IV UD PRN; Protocol PRN Reason: Hypoglycemia Protocol Stop: 05/13/25 15:59 Last Admin: 04/14/25 05:55 Dose: 25 ml Glucagon (Glucagon For Inj 1 Mg Vial) 1 mg SQ UD PRN; Protocol PRN Reason: Hypoglycemia Protocol Stop: 05/13/25 15:59 Glucose (Glucose 40% Gel 15 Gm Tube) 15 - 30 gm PO UD PRN; Protocol PRN Reason: Hypoglycemia Protocol Stop: 05/13/25 15:59 Glucose (Glucose 10 Tab/Tube) 4 - 8 tab PO UD PRN; Protocol PRN Reason: Hypoglycemia Protocol Stop: 05/13/25 15:59 Lactated Ringer's (Lr) 1,000 mls @ 100 mls/hr IV .Q10H [facility] Stop: 04/16/25 14:59 Last Admin: 04/14/25 04:29 Dose: 100 mls/hr Heparin Sodium/Dextrose (Heparin 34903 Unit/500 Ml D5w) 25,000 units in 500 mls @ 18 mls/hr IV .Q24H [facility]; Protocol Stop: 05/13/25 15:53 Last Titration: 04/14/25 07:17 Dose: 900 units/hr, 18 mls/hr Acetaminophen (Ofirmev) 1,000 mg in 100 mls @ 400 mls/hr IV Q8H PRN PRN Reason: Mild Pain (Scale 1, 2, 3) Stop: 04/16/25 19:42 Last Infusion: 04/13/25 20:51 Dose: Infused Insulin Aspart (Insulin Aspart Per Unit Charge) 0 units SC Q6 [facility] Stop: 05/14/25 00:00 Last Admin: 04/14/25 06:05 Dose: Not Given Lisinopril (Lisinopril 20 Mg Tab) 20 mg PO QAM [facility] Stop: 05/14/25 03:24 Last Admin: 04/14/25 04:29 Dose: 20 mg Metoprolol Tartrate (Metoprolol Tartrate 25 Mg Tab) 25 mg PO BID [facility] Stop: 05/13/25 20:59 Last Admin: 04/14/25 08:30 Dose: 25 mg Miscellaneous (Carbohydrates For Hypoglycemia ) 15 - 30 gm PO UD PRN PRN Reason: Hypoglycemia Treatment Stop: 05/13/25 15:59 Miscellaneous Information (Pharmacy Glycemic Mgmt Consult) 1 each N/A UD PRN PRN Reason: Consult Stop: 05/13/25 15:53 Morphine Sulfate (Morphine Sulfate 2 Mg/Ml Carp) 2 mg IV Q4 PRN PRN Reason: Mod-Sev Pain (Scale 4-10) Stop: 04/27/25 19:42 Ondansetron HCl (Ondansetron Inj 2 Mg/Ml 2 Ml Vial) 4 mg IV Q6H PRN PRN Reason: Nausea Stop: 05/13/25 15:53 PG Care Time/CCT Total # of Minutes Spent Total Time Spent with Patient: Total time spent is greater than 50% in coordination of care (as documented) at patient's floor/unit and/or counseling patient: 40 minutes Coding Level of Care Code 88794 SUB INP/OBS CARE 3/50MIN Diagnoses Atrial fibrillation with controlled ventricular rate I48.91 Abdominal pain R10.9 HTN (hypertension) I10 Neuroendocrine carcinoma metastatic to liver C7A.8; C7B.8 Time Spent (min) 60 Comment 40 minutes by Juan Miguel Bains PA-C, [address] Johnston
--- NOTE | 2025-04-14 10:59 | Pharmacy Report ---
Pharmacy Glycemic Short Note 2 - Date of Service April 14, 2025 - Glycemic Short BSG Results (Last 24 hours): 04/13/25 04/13/25 04/13/25 11:05 15:32 15:54 Glucose 580 H* POC Glucose 443 H* 459 H* 04/13/25 04/13/25 04/13/25 16:59 18:00 18:51 Glucose POC Glucose 385 H* 324 H* 285 H 04/13/25 04/13/25 04/13/25 19:58 21:05 21:26 Glucose POC Glucose 192 H 131 H 125 H 04/13/25 04/14/25 04/14/25 21:53 00:08 05:48 Glucose POC Glucose 148 H 119 H 64 L* 04/14/25 04/14/25 04/14/25 05:54 06:10 06:13 Glucose 134 H POC Glucose 60 L* 126 H OUTPATIENT ANTIDIABETIC REGIMEN: * Insulin degludec (Tresiba) 8 units QAM * A1c 7.8% (04/14/2025) * Received cortisone injection on 04/12/2025. Since patient's glucose increased to over 300, patient administered 20 units of insulin degludec on 04/13/2025 AM DRILL BIT SHARPENER. ASSESSMENT: * 74 yo M with T2DM admitted 04/13/2025 for pancreatitis and atrial fibrillation. * Currently NPO and receiving heparin in D5W. * Presented initially with hyperglycemia of 580 mg/dL and was placed on an insulin drip from [id number]. Glucose values trended down quickly and this was discontinued. * AM hypoglycemia noted. Etiology likely 2nd extra long-acting insulin degludec administration 04/13/2025 AM DRILL BIT SHARPENER and additional 10 units of insulin glargine 04/13/2025 evening. * Hold basal insulin for now. Will initiate moderate stress weight-based insulin aspart. PLAN FOR INPATIENT GLYCEMIC CONTROL: * Basal insulin * Hold for today and reassess tomorrow. * Bolus insulin * NovoLog per scale ACHS or Q6hrs while NPO * Goal Range: Low 110 mg/dL - High 140 mg/dL * Correction Factor: 40 mg/dL/unit * Nutritional / Prandial insulin per carb ratio of 1 unit per 13 grams CHO consumed
--- NOTE | 2025-04-14 12:34 | Gastrointestinal Consultation ---
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 CT imaging with concern for overlapping acute pancreatitis. Patient improving with IV fluids, pain control, and NPO status. Discussed with Dr. Guillaume. Obtain his baseline LFTs from the [facility] chart. If our LFTs are elevated beyond his baseline, would consider MRCP. Will be rounding this afternoon again with Dr. Guillaume and will hope to have obtained baseline LFTs by that time. Addendum: [facility] Hospitalist was able to provide me with baseline LFTs that have been normal with the exception of an alk phos. An MRCP has been ordered. Supervising Physician Co-Signing Physician Notes Abdominal pain. Abnormal liver test. Previously Kishor normal. We obtained him from [facility]. MRCP shows both intra and extrapelvic biliary dilatation related to mass in the head of the pancreas. Patient would benefit from palliative expandable stenting of the bile duct. He also has dilation of the pancreatic duct. This could be causing bouts of pancreatitis. However I think the main problem at present will be the biliary system. Review of previous records show that he failed an ERCP in this institution by Dr. Thompson in 2020 due to abnormal duodenal anatomy. Unable to pass the duodenoscope patient was transferred to tertiary center. I think high probability we will encounter similar problem or worsening problem based on this new mass in the head of the pancreas. Recommend transfer. 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 He notes that he developed epigastric pain at home after eating a bowl of cheerios. He tells me that he had been having diarrhea, which is not uncommon, but the pain was abrupt onset and alarmed him because it felt like previous episodes of pancreatitis that he had when previously diagnosed with his cancer 10 years ago. In terms of his neuroendocrine cancer history, he notes he had surgery 10 years ago then underwent some treatments with his oncologist. He notes that 5 years ago treatments were discontinued because of his blood count. He and his note that his oncologist have just been monitoring with imaging every 6 months and things have remained stable. When he presented to the hospital he was found to be in Afib. Lipase is normal. He had a CT of the abdomen/pelvis that indicated: IMPRESSION: 1. Possible 3 cm pancreatic head mass with increased pancreatic ductal dilatation distal to the mass. Possible superimposed minimal pancreatitis. 2. Interval small finding anterior to the liver. Differential diagnosis includes mass/metastatic disease, ectopic pancreatic tissue, and other finding. 3. Mild acute uncomplicated sigmoid diverticulitis versus mild diffuse colitis, versus mild bowel edema due to trace ascites. No bowel obstruction seen. 4. Otherwise as described. He notes improvement of his abdominal pain since admission. He is NPO and receiving Tylenol and IV fluids. Of note, in 2020, he had an EUS for a mass in the pancreatic neck that was biopsied and was consistent with mets from his neuroendocrine carcinoma. He has a history of mets to bone/liver. He was unable to have an ERCP at this facility in the past due to his post-surgical anatomy. He does note 10 lb weight loss in 6 months. T bili 2.2. AST 42. ALT 66. Allergies Allergy/AdvReac Type Severity Reaction Status Date / Time oxycodone [From OxyContin] AdvReac Unknown Nausea Verified 04/13/25 13:39 Home Medications Medication Instructions Recorded Confirmed Type aspirin 81 mg tablet,delayed 81 mg PO QAM 11/14/20 04/13/25 History release (Karlie Low Dose Aspirin) cholecalciferol (vitamin D3) 50 50 mcg PO QAM 11/14/20 04/13/25 History mcg (2,000 unit) capsule (Vitamin D3) multivitamin 1 tab PO QAM 11/14/20 04/13/25 History insulin degludec 100 unit/mL (3 8 unit subcut QAM 04/13/25 04/13/25 History mL) subcutaneous pen (Tresiba FlexTouch U-100 insulin) lisinopril 20 1 tab PO QAM 04/13/25 04/13/25 History mg-hydrochlorothiazide 25 mg tablet metoprolol tartrate 25 mg tablet 25 mg PO BID 04/13/25 04/13/25 History omega 3 350 mg-dha 235 mg-epa 90 1 cap PO QAM 04/13/25 04/13/25 History mg-fish oil 597 mg capsule,delay rel ([place]-3) Patient History Medical History HTN (hypertension) Diabetes IDDM Neuroendocrine carcinoma 2015, Follows with oncology (Dr. Melgar), s/p surgery Hypertensive heart disease Arthritis Hx of sepsis (2020) Hx of pancreatitis (2015) Bifascicular block no cardio Surgical History Hx of cataract extraction left History of open reduction and internal fixation (ORIF) procedure right leg History of cholecystectomy History of appendectomy History of bowel resection small intestine and tumor removal History of esophagogastroduodenoscopy (EGD) History of colonoscopy Social History Smoking Status: Former smoker Tobacco Type: Cigarettes Second Hand Exposure: No; Do You Dip or Chew Tobacco: No; Hx Alcohol Use: Yes Alcohol type: wine Alcohol Intake Frequency: 4 or More x per/Week Hx Substance Use: No Preferred Language: Serbian Communication Ability: Effective Telescope Repairer Required: No Beliefs That Will Affect Care: None Current Living Situation: Spouse Feels Safe at Home: Yes Safety Concerns: Feels Safe At This Time Assistive Devices: None Review of Systems Constitutional: no fever and no chills Respiratory: no cough and no dyspnea Cardiovascular: no chest pain Gastrointestinal: + abdominal pain (improving) Physical Exam Constitutional: well developed Respiratory: normal respiratory effort Cardiovascular: Rate/Rhythm: regular rate Gastrointestinal (Abdomen): normal bowel sounds, soft, nontender, no hepatosplenomegaly Psychiatric: Orientation: alert and oriented x 3 Results & Data Vital Signs (Past 12 Hours) Vital Signs Temp Pulse Resp BP Pulse Ox O2 Del Method 04/14/25 11:50 Room Air 04/14/25 11:12 36.8 C 76 20 163/89 H 99 Room Air 04/14/25 07:15 36.9 C 69 18 149/92 H 98 Room Air 04/14/25 04:25 147/86 H 04/14/25 02:53 36.8 C 63 18 152/85 H 97 Room Air 04/14/25 02:16 168/99 H PG Care Time/CCT Total # of Minutes Spent Total Time Spent with Patient: Total time spent is greater than 50% in coordination of care (as documented) at patient's floor/unit and/or counseling patient: Coding Level of Care Code 31602 INT INP/OBS CARE MIN Diagnoses Pancreatitis K85.90 Malignant carcinoid tumor of small intestine C7A.019
[2025-04-14] MEDS: D5W AND NSS 1,000 ML IV SCH (13:14)
[2025-04-14 14:35] LABS: ANTI-Xa, UFH(UnfractionatedHep 0.24 IU/ml (0.3-0.7)
--- NOTE | 2025-04-14 15:07 | Magnetic Resonance Report ---
MRCP CLINICAL HISTORY: Epigastric abdominal pain. Reported history of metastatic neuroendocrine tumor. COMPARISON STUDY: Abdominal CT dated 04/13/2025. MRCP dated 11/15/2020. TECHNIQUE: High-resolution MRCP is performed utilizing various T2-weighted sequences in the axial and coronal planes. 3-D reformats are created and assessed. Diffusion-weighted imaging was utilized. IV contrast was not administered for this examination. The examination is degraded by motion artifact. FINDINGS: The gallbladder surgically absent. There is mild central intrahepatic biliary duct dilatation. The co mmon bile duct is dilated to the level of the pancreatic head, measuring up to 8 mm diameter. No intr aluminal filling defects are seen to suggest choledocholithiasis. There is a mass lesion in the expec martin location of the pancreatic head seen on axial image #18 which measures approximately 3 x 1.5 cm. The distal pancreas is atrophic with dilatation of the pancreatic duct. This measures up to 5 mm in d iameter. There is postsurgical change from left hepatic lobe resection. A 1.2 cm T2 hyperintense lesion in the dome of the liver is seen on axial image #7. Right cardiophrenic lymph nodes/implants were better as sessed on yesterday's CT scans. There may be an additional 2.1 cm implant along the left hepatic lobe resection margin seen on axial image #14. There is trace perihepatic ascites. The unenhanced spleen, adrenal glands, and kidneys are grossly unremarkable. The abdominal aorta is ectatic noting atherosc lerotic plaque and irregularity imaged portions the bowel show no evidence of obstruction. The heart is enlarged noting a small pericardial effusion. There are small pleural effusions. There i s evidence of multifocal bony metastatic disease. IMPRESSION: 1. Status post cholecystectomy and left hepatic lobe resection. 2. There is intra and extrahepatic biliary ductal dilatation as well as significant dilatation on the pancreatic duct. This is secondary to a mass lesion in the expected location of the pancreatic head. This could represent a metastasis or primary pancreatic lesion, and the lesion was better delineated on yesterday's abdominal CT. 3. There is an indeterminant 1.2 cm right lobe hepatic lesion, and a possible additional lesion scall oping the left hepatic lobe resection margin. Metastases are not excluded. 4. Right cardiophrenic lymph nodes/implants were better assessed on yesterday's CT scans. These are a lso likely metastatic. 5. Multifocal bony metastatic disease. 6. Small pleural effusions. 7. Trace perihepatic ascites. Electronically signed by: Omar Gaytan M.D. 04/14/2025 3:06 PM
[2025-04-14] MEDS ORDERED: PHARMACY GLYCEMIC MGMT CONSULT PRN ×2 (17:02→17:18)
--- NOTE | 2025-04-14 17:03 | Hospitalist Progress Note ---
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 Bilirubinemia Bilirubin increased, compared to outpatient LFTs MRCP 1. Status post cholecystectomy and left hepatic lobe resection. 2. There is intra and extrahepatic biliary ductal dilatation as well as significant dilatation on the pancreatic duct. This is secondary to a mass lesion in the expected location of the pancreatic head. This could represent a metastasis or primary pancreatic lesion, and the lesion was better delineated on yesterday's abdominal CT. 3. There is an indeterminant 1.2 cm right lobe hepatic lesion, and a possible additional lesion scalloping the left hepatic lobe resection margin. Metastases are not excluded. 4. Right cardiophrenic lymph nodes/implants were better assessed on yesterday's CT scans. These are also likely metastatic. 5. Multifocal bony metastatic disease. 6. Small pleural effusions. 7. Trace perihepatic ascites. awaiting further recommendations by GI Pancreatitis Patient presenting with epigastric pain Could be secondary to metastatic cancer, alcohol use, JENIFER-I/thiazide combo medication use Lipase 85 CTAP reveals 3cm pancreatic head mass with increased ductal dilatation distal to the mass - appears unchanged compared to prior CT in November 2024 NPO and MIVF GI consulted 04/14 Lipase normal chronic finding diet advanced monitor Atrial fibrillation Admitting EKG shows atrial fibrillation at a controlled rate Patient reports one other instance of atrial fibrillation when hospitalized with sepsis in [place] On metoprolol at home Heparin drip for now Echo ordered Cardiology consulted, continue heparin for now "Rate controlled AF noted on telemetry. Small pleural effusions, mild ascites noted on MRCP. Consider furosemide 20 daily instead of HCTZ (which is currently on hold) after hyponatremia improves. Transition to Eliquis after abdominal pain work up completed. Outpatient cardiology follow up to be arranged. Cardiology to sign off. Call with questions or concerns." Acute hyperglycemia Type 2 diabetes Initial glucose 580 Secondary to cortisone injection for left hip arthritis yesterday Insulin drip with q1hr BSGs Transition to SQ insulin when sugars reach goal range of 140-180 Glycemic pharmacy consulted Hypertensive urgency BPs 190s/100s but patient asymptomatic IV metoprolol PRN Neuroendocrine carcinoma metastatic to liver Transaminitis, elevated bilirubin Follows with Heme Onc Dr Melgar last seen November 2024 Transaminitis and elevated bilirubin likely secondary to metastasis CTA chest revealed multifocal osteoblastic metastatic disease and a pathologically enlarged right internal mammary lymph node suspicious for metastatic disease Oncology consulted to review CT scans DVT Prophylaxis: low dose Heparin drip Code Status: FULL CODE - As per discussion at bedside with the patient. PCP: Mehdi Garcia Disposition: admit to telemetry Patient seen in collaboration with Dr Dia. Please see addendum. I spent a total of 75 minutes coordinating, documenting and providing care for this patient excluding time spent in the performance of separately billed services or time spent by another provider/QHP. Admission and Anticipated Discharge Date Admission Date: April 13, 2025 Subjective seen resting in bed, not in distress, comfortable very pleasant states he feels much better today no recurrence of abdominal pain no nausea/vomiting no fever/chills no chest pain, dyspnea, palpitations, dizziness no other new symptoms Review of Systems Review of Systems: all noted and negative except for above Results & Data Results & Data Vital Signs (Past 12 Hours) Vital Signs Temp Pulse Pulse Resp BP Pulse Ox O2 Del Method 04/14/25 15:13 74 04/14/25 15:04 36.7 C 69 18 158/97 H 100 Room Air 04/14/25 11:50 Room Air 04/14/25 11:12 36.8 C 76 20 163/89 H 99 Room Air 04/14/25 07:15 36.9 C 69 18 149/92 H 98 Room Air 04/14/25 05:55 71
--- NOTE | 2025-04-14 19:35 | Communication Note ---
Date of Service: April 14, 2025 Patient seen at the bedside 7:30 PM. Reviewed findings on imaging. Patient's had a previous biliary stent. He tells me that the performing endoscopist had great difficulty even in a tertiary center getting to the duodenum. This is not likely changed and probably worsened since that time back in . I think he has new biliary obstruction. Liver tests are newly abnormal. Episode of pain could be related to pancreatitis from pancreatic duct obstruction or potentially even biliary in nature. He is currently not septic. I think he is best transferred to a tertiary center. Patient quires whether can do it as an outpatient as he feels well at this time. I told him may be a significant time delay for outpatient evaluation in this situation. Recommend that we evaluate his LFTs as ordered for the a.m. Could speak to Leiter at that time about a semiurgent outpatient or transfer this weekend.
[2025-04-14 21:44] LABS: ANTI-Xa, UFH(UnfractionatedHep 0.21 IU/ml (0.3-0.7)
[2025-04-15 04:21] LABS: Hematocrit (blood only) 29.6 % (42.0-52.0); Hemoglobin 10.7 g/dl (14.0-18.0); Mean Corpuscular Hemoglobin 35.5 pg (25.0-34.0); Mean Corpuscular Volume 98.3 fL (80.0-100.0); Platelet Count 105 K/uL (130-400); RDW Standard Deviation 49.1 fL (36.4-46.3); Red Blood Count 3.01 M/uL (4.70-6.10); White Blood Count 4.46 K/ul (4.8-10.8)
[2025-04-15 04:23] LABS: Alanine Aminotransferase 169.0 U/L (7-52); Alkaline Phosphatase 331.0 U/L (34-104); Anion Gap 6.0 (3-11); Bilirubin,Total 3.2 mg/dl (0.2-1.0); Blood Urea Nitrogen 26.0 mg/dl (6-23); Calcium 8.4 mg/dl (8.6-10.3); Carbon Dioxide 29.0 mmol/L (21-32); Chloride 93.0 mmol/L (98-107); Creatinine Clr Calc Pharmacy 49.8 ml/min; Glucose 119.0 mg/dl (70-99(Fasting)); Lipase 41.0 U/L (11-82); Magnesium 1.4 mg/dl (1.7-2.4); Potassium 3.6 mmol/L (3.5-5.1); Sodium 128.0 mmol/L (136-145); Total Protein 5.8 gm/dl (6.0-8.3)
[2025-04-15] MEDS: INSULIN ASPART PER UNIT CHARGE SC SCH (04:28)
[2025-04-15 04:29] LABS: ANTI-Xa, UFH(UnfractionatedHep 0.26 IU/ml (0.3-0.7)
[2025-04-15 04:31] LABS: Immature Granulocytes # (auto) 0.01 K/uL (0.01-0.20); Immature Granulocytes % (auto) 0.2 %; RBC Morphology Unremarkable
--- NOTE | 2025-04-15 06:43 | Electrocardiogram Report ---
Test Reason : Blood Pressure : */* mmHG Vent. Rate : 87 BPM Atrial Rate : * BPM P-R Int : * ms QRS Dur : 140 ms QT Int : 408 ms P-R-T Axes : * -68 51 degrees QTcB Int : 490 ms Atrial fibrillation with premature ventricular or aberrantly conducted complexes Right bundle branch block Left anterior fascicular block Bifascicular block Septal infarct (cited on or before 14-Nov-2020) Abnormal ECG When compared with ECG of 14-Nov-2020 17:46, Atrial fibrillation has replaced Sinus rhythm T wave inversion no longer evident in Lateral leads Confirmed by Óscar Bailey ([id number]) on 04/15/2025 6:43:37 AM Referred By: REFERRED SELF Confirmed By: Óscar Bailey
[2025-04-15 08:10] VITALS: RESP 18; TEMP 98.1
[2025-04-15 11:07] VITALS: O2SAT 99
[2025-04-15] MEDS: LANTUS PER UNIT CHARGE SC SCH (11:55)
--- NOTE | 2025-04-15 12:09 | Gastroenterology Progress Note ---
Date of Service April 15, 2025 Assessment & Plan (1) Elevated LFTs: Plan: Worsening LFTs to suggest increasing biliary obstruction. For transfer to [place] (2) Pancytopenia: Plan: With development of pancytopenia which is new potentially could signify developing infection. Start ceftriaxone (3) Neuroendocrine carcinoma of pancreas: Admission and Anticipated Discharge Date Admission Date: April 13, 2025 Subjective Biliary obstruction Worsening jaundice. Concerned about the development of a pancytopenia. He is afebrile this could signify infection. Typically malignant biliary obstruction is less likely to become infected. However his ducts been instrumented in the past. He is to be transferred to [place]. I would cover him with antibiotics. Physical Exam Physical Exam: Does not appear acutely septic or ill. Obviously jaundiced. Abdomen benign Results & Data Results & Data Vital Signs (Past 12 Hours) Vital Signs Temp Pulse Pulse Resp BP Pulse Ox O2 Del Method 04/15/25 11:36 85 04/15/25 11:07 36.7 C 75 18 136/80 99 Room Air 04/15/25 09:18 Room Air 04/15/25 08:08 36.7 C 84 18 126/78 98 Room Air 04/15/25 04:28 37.0 C 106 H 17 112/77 94 Room Air PG Care Time/CCT Total # of Minutes Spent Total Time Spent with Patient: Total time spent is greater than 50% in coordination of care (as documented) at patient's floor/unit and/or counseling patient: Coding Level of Care Code 25802 SUB INP/OBS CARE 09/17MIN Diagnoses Elevated LFTs R79.89 Pancytopenia D61.818 Neuroendocrine carcinoma of pancreas C7A.8
[2025-04-15 12:19] LABS: ANTI-Xa, UFH(UnfractionatedHep 0.29 IU/ml (0.3-0.7)
[2025-04-15] MEDS: cefTRIAXone SODIUM 1,000 MG/50 ML BAG IV SCH (12:53)
[2025-04-15] MEDS: MAGNESIUM OXIDE 400 MG TAB PO SCH (13:55)
--- NOTE | 2025-04-15 14:01 | Pharmacy Report ---
Pharmacy Glycemic Short Note 2 - Date of Service April 15, 2025 - Glycemic Short BSG Results (Last 24 hours): 04/14/25 04/14/25 04/14/25 15:04 16:05 17:04 Glucose POC Glucose 92 81 100 H 04/14/25 04/14/25 04/15/25 19:01 20:58 03:49 Glucose POC Glucose 149 H 158 H 132 H 04/15/25 04/15/25 04/15/25 03:55 07:23 11:06 Glucose 119 H POC Glucose 135 H 183 H OUTPATIENT ANTIDIABETIC REGIMEN: * Insulin degludec (Tresiba) 8 units QAM * A1c 7.8% (04/14/2025) * Received cortisone injection on 04/12/2025. Since patient's glucose increased to over 300, patient administered 20 units of insulin degludec on 04/13/2025 AM MEDICAL GENETICS DIRECTOR. ASSESSMENT: 04/15 * Patient remains on D5NS @60cc/hr, heparin drip, ceftriaxone started for increasing biliary obstruction, pancytopenia, increase in LFTs. Plan to transfer. * Blood sugars low yesterday when NPO and had 30 units of basal insulin on 04/13, diet resumed last night, BG tolu from 135 to 183mg/dl with breakfast to lunch, will resume basal at a reduced dose. 04/14 * 74 yo M with T2DM admitted 04/13/2025 for pancreatitis and atrial fibrillation. * Currently NPO and receiving heparin in D5W. * Presented initially with hyperglycemia of 580 mg/dL and was placed on an insulin drip from [id number]. Glucose values trended down quickly and this was discontinued. * AM hypoglycemia noted. Etiology likely 2nd extra long-acting insulin degludec administration 04/13/2025 AM MEDICAL GENETICS DIRECTOR and additional 10 units of insulin glargine 04/13/2025 evening. * Hold basal insulin for now. Will initiate moderate stress weight-based insulin aspart. PLAN FOR INPATIENT GLYCEMIC CONTROL: * Basal insulin * Lantus 6 units SC Daily * Bolus insulin * NovoLog per scale ACHS or Q6hrs while NPO * Goal Range: Low 110 mg/dL - High 140 mg/dL * Correction Factor: 40 mg/dL/unit * Nutritional / Prandial insulin per carb ratio of 1 unit per 13 grams CHO consumed
--- NOTE | 2025-04-15 14:03 | Discharge Summary ---
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 Bilirubinemia Bilirubin increased 2.2, compared to outpatient LFTs MRCP 1. Status post cholecystectomy and left hepatic lobe resection. 2. There is intra and extrahepatic biliary ductal dilatation as well as significant dilatation on the pancreatic duct. This is secondary to a mass lesion in the expected location of the pancreatic head. This could represent a metastasis or primary pancreatic lesion, and the lesion was better delineated on yesterday's abdominal CT. 3. There is an indeterminant 1.2 cm right lobe hepatic lesion, and a possible additional lesion scalloping the left hepatic lobe resection margin. Metastases are not excluded. 4. Right cardiophrenic lymph nodes/implants were better assessed on yesterday's CT scans. These are also likely metastatic. 5. Multifocal bony metastatic disease. 6. Small pleural effusions. 7. Trace perihepatic ascites. Evaluated by GI service Dr. Markell Rizvi-recommended transfer to [facility] for ERCP with stent placement as this service can not be provided at this facility at this time Discussed above recommendation with patient Patient preferred to think about this through the night and repeat labs in the morning before making a decision for transfer 04/15 LFTs continues to worsen, trending up T. bili 3.2, direct bili 1.7 AST 209, ALT 169 Alk phos 331 Patient also developing pancytopenia WBC 4.4, hemoglobin 10.7, platelet count 105 Possible underlying infection, start ceftriaxone per GI Pancreatitis Patient presenting with epigastric pain Could be secondary to metastatic cancer, alcohol use, JENIFER-I/thiazide combo medication use Lipase 85 CTAP reveals 3cm pancreatic head mass with increased ductal dilatation distal to the mass - appears unchanged compared to prior CT in November 2024 NPO and MIVF GI consulted 04/14 Lipase normal chronic finding diet advanced monitor Abnormal CT chest, abd/pelvis, MRCP Please refer to full report in the Ordered Studies section Further work up, management, and ff up Atrial fibrillation Admitting EKG shows atrial fibrillation at a controlled rate Patient reports one other instance of atrial fibrillation when hospitalized with sepsis in [place] On metoprolol at home Heparin drip for now Echo ordered Cardiology consulted, continue heparin for now "Rate controlled AF noted on telemetry. Small pleural effusions, mild ascites noted on MRCP. Consider furosemide 20 daily instead of HCTZ (which is currently on hold) after hyponatremia improves. Transition to Eliquis after abdominal pain work up completed. Outpatient cardiology follow up to be arranged. Cardiology to sign off. Call with questions or concerns." Hypomagnesemia Mg 1.4 PO Mg po ordered monitor Acute hyperglycemia Type 2 diabetes Initial glucose 580 Secondary to cortisone injection for left hip arthritis yesterday Insulin drip with q1hr BSGs Transition to SQ insulin when sugars reach goal range of 140-180 Glycemic pharmacy consulted -- 04/15 patient noted to be hypoglycemic, diet advanced, BSGs improved Hypertensive urgency BPs 190s/100s but patient asymptomatic IV metoprolol PRN - improved Neuroendocrine carcinoma metastatic to liver Transaminitis, elevated bilirubin Follows with Heme Onc Dr Melgar last seen November 2024 Transaminitis and elevated bilirubin likely secondary to metastasis CTA chest revealed multifocal osteoblastic metastatic disease and a pathologically enlarged right internal mammary lymph node suspicious for metastatic disease DVT Prophylaxis: low dose Heparin drip Code Status: FULL CODE - As per discussion at bedside with the patient. 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 Patient reports that he was in his usual state of health yesterday but didn't feel great when he woke up this morning. He was having diarrhea the last few days, which is not unusual for him, and took immodium causing constipation. He was able to move his bowels twice this morning and ate breakfast. After breakfast while sitting in his office, he developed severe 10/10 epigastric pain that did not subside. This was reminiscent of a previous instance of pancreatitis when he was first diagnosed with cancer. He sought evaluation in the ED because of this. He reports the pain radiates across his right upper abdomen towards his back. He denies any fevers, chills, chest pain, palpitations, SOB, N/V. He lives at home with his and does not use any ambulatory aids. He reports that he was admitted to the hospital a few years ago for sepsis and was found to be in A fib at that time. He has had no recurrence since then that he knows of but does occasionally feel heart palpitations. He also has arthritis of his left hip for which he just received a cortisone injection yesterday. Discharge Exam General/Psych: frail appearing, sitting up in bed, NAD, conversing easily Head: normocephalic, atraumatic Eyes: normal inspection, PERRL, conjunctivae pink ENT: external ear and nose normal, oropharynx normal Neck: normal visual inspection, trachea midline Respiratory: normal respiratory effort, lungs clear to auscultation, no wheeze/rales/rhonchi, no accessory muscle use Cardiovascular: irregularly irregular rate and rhythm, no murmur/rub/gallop, no JVD Extremities: no cyanosis or clubbing, normal peripheral pulses, no BLE edema Abdomen/GI: normal bowel sounds, soft, tender on palpation of epigastric region Neurologic/MSK: A+Ox3, motor strength 5/5, moves all extremities Skin: no rashes, normal color, warm and dry Updated Medication List Medication Instructions Recorded Confirmed Type aspirin 81 mg tablet,delayed 81 mg PO QA 11/14/20 04/13/25 History release (Karlie Low Dose Aspirin) cholecalciferol (vitamin D3) 50 50 mcg PO QAM 11/14/20 04/13/25 History mcg (2,000 unit) capsule (Vitamin D3) multivitamin 1 tab PO QAM 11/14/20 04/13/25 History insulin degludec 100 unit/mL (3 8 unit subcut QA04/13/25 04/13/25 History mL) subcutaneous pen (Tresiba FlexTouch U-100 insulin) lisinopril 20 1 tab PO QAM 04/13/25 04/13/25 History mg-hydrochlorothiazide 25 mg tablet metoprolol tartrate 25 mg tablet 25 mg PO BID 04/13/25 04/13/25 History omega 3 350 mg-dha 235 mg-epa 90 1 cap PO QAM 04/13/25 04/13/25 History mg-fish oil 597 mg capsule,delay rel ([place]-3) lisinopril 20 mg tablet 20 mg PO QAM 30 days #30 tabs 04/15/25 Rx magnesium oxide 400 mg (241.3 mg 400 mg PO BID 7 days #14 tabs 04/15/25 Rx magnesium) tablet Hospital Stay Data Consultations 04/13/25 13:40 ED Decision to Admit Stat 04/13/25 15:54 Consult Cardiology Routine 04/14/25 17:13 Consult Gastroenterology Routine Diagnostic Imagining Performed Laboratory Results WBC 4.46 K/ul (4.8-10.8) L D 04/15/25 03:55 RBC 3.01 M/uL (4.70-6.10) L 04/15/25 03:55 Hgb 10.7 g/dl (14.0-18.0) L 04/15/25 03:55 Hct 29.6 % (42.0-52.0) L 04/15/25 03:55 MCV 98.3 fL (80.0-100.0) 04/15/25 03:55 MCH 35.5 pg (25.0-34.0) H 04/15/25 03:55 MCHC 36.1 g/dL (32.0-36.0) H 04/15/25 03:55 RDW Std Deviation 49.1 fL (36.4-46.3) H 04/15/25 03:55 RDW Coeff of [place] 13.6 % (11.5-14.5) 04/15/25 03:55 Plt Count 105 K/uL (130-400) L 04/15/25 03:55 MPV 11.1 fL (9.4-12.4) 04/15/25 03:55 Immature Gran % (Auto) 0.2 % 04/15/25 03:55 Neut % (Auto) 88.3 % 04/15/25 03:55 Lymph % (Auto) 1.6 % 04/15/25 03:55 [place] % (Auto) 9.9 % 04/15/25 03:55 Eos % (Auto) 0.0 % 04/15/25 03:55 Baso % (Auto) 0.0 % 04/15/25 03:55 Neut # (Auto) 3.94 K/uL (1.40-6.50) 04/15/25 03:55 Lymph # (Auto) 0.07 K/uL (1.20-3.40) L 04/15/25 03:55 [place] # (Auto) 0.44 K/uL (0.11-0.59) 04/15/25 03:55 Eos # (Auto) 0.00 K/uL (0.00-0.50) 04/15/25 03:55 Baso # (Auto) 0.00 K/uL (0.00-0.20) 04/15/25 03:55 Immature Gran # (Auto) 0.01 K/uL (0.01-0.20) 04/15/25 03:55 RBC Morphology Unremarkable 04/15/25 03:55 PT 11.1 Seconds (9.0-12.0) 04/14/25 06:10 INR 1.0 (0.9-1.1) 04/14/25 06:10 APTT 32 Seconds (21-31) H 04/14/25 06:10 PTT Ratio 1.2 04/14/25 06:10 Heparin Anti-Xa, Unfract 0.29 IU/ml (0.3-0.7) L 04/15/25 11:37 Sodium 128 mmol/L (136-145) L 04/15/25 03:55 Potassium 3.6 mmol/L (3.5-5.1) 04/15/25 03:55 Chloride 93 mmol/L (98-107) L 04/15/25 03:55 Carbon Dioxide 29 mmol/L (21-32) 04/15/25 03:55 Anion Gap 6 (3-11) 04/15/25 03:55 BUN 26 mg/dl (6-23) H 04/15/25 03:55 Creatinine 1.10 mg/dl (0.6-1.4) 04/15/25 03:55 Est Cr Clr Drug Dosing 49.8 ml/min 04/15/25 03:55 eGFR 70.44 04/15/25 03:55 BUN/Creatinine Ratio 23.6 (10-20) H 04/15/25 03:55 Glucose 119 mg/dl (70-99(Fasting)) H 04/15/25 03:55 POC Glucose 183 mg/dl (70-99) H 04/15/25 11:06 Estimat Average Glucose 177 mg/dl 04/14/25 06:10 Hemoglobin A1c 7.8 % (4.5-5.6) H 04/14/25 06:10 Calcium 8.4 mg/dl (8.6-10.3) L 04/15/25 03:55 Phosphorus 2.9 mg/dl (2.5-4.9) 04/14/25 06:10 Magnesium 1.4 mg/dl (1.7-2.4) L 04/15/25 03:55 Total Bilirubin 3.2 mg/dl (0.2-1.0) H 04/15/25 03:55 Direct Bilirubin 1.7 mg/dl (0-0.2) H 04/15/25 03:55 AST 209 U/L (13-39) H 04/15/25 03:55 ALT 169 U/L (7-52) H 04/15/25 03:55 Alkaline Phosphatase 331 U/L (34-104) H 04/15/25 03:55 Troponin I High Sens 12.7 pg/ml (0-20) 04/13/25 11:05 Total Protein 5.8 gm/dl (6.0-8.3) L 04/15/25 03:55 Albumin 3.1 gm/dl (3.4-5.0) L 04/15/25 03:55 Globulin 3.8 gm/dl (2.5-4.0) 04/13/25 11:05 Albumin/Globulin Ratio 1.1 (0.9-2) 04/13/25 11:05 Lipase 41 U/L (11-82) 04/15/25 03:55 TSH 1.693 uIu/ml (0.300-4.500) 04/13/25 11:05 Urine Color Yellow 04/13/25 12:17 Urine Appearance Clear (Clear) 04/13/25 12:17 Urine pH 5.5 (4.5-7.5) 04/13/25 12:17 Ur Specific [place] 1.033 (1.000-1.030) H 04/13/25 12:17 Urine Protein Negative (Negative) 04/13/25 12:17 Urine Glucose (UA) 3+ (Negative) H 04/13/25 12:17 Urine Ketones Negative (Negative) 04/13/25 12:17 Urine Blood Negative (Negative) 04/13/25 12:17 Urine Nitrite Negative (Negative) 04/13/25 12:17 Urine Bilirubin Negative (Negative) 04/13/25 12:17 Urine Urobilinogen Negative (Negative) 04/13/25 12:17 Ur Leukocyte Esterase Negative (Negative) 04/13/25 12:17 Urine Comment 04/13/25 12:17 Impressions Abdomen/Pelvis CT 04/13/25 11:[address] WITH IV CONTRAST CT DOSE: 761.03 mGy.cm HISTORY: EPIGASTRIC ABD PAIN TECHNIQUE: Multiaxial CT images of the abdomen and pelvis were performed following the IV administration of 120 cc of Optiray, A dose lowering technique was utilized adhering to the principles of ALARA. COMPARISON STUDY: 11/15/2020 FINDINGS: ABDOMEN: Stable left hepatic lobe resection. Gallbladder is surgically absent. Otherwise the liver, spleen, and adrenal glands are unremarkable. Kidneys show no hydronephrosis. There are scattered atherosclerotic calcifications. No abdominal aortic aneurysm. There is increased dilatation of the pancreatic duct. There is mild stranding adjacent to the pancreas. No significant peripancreatic fluid or pseudocyst. There is increased prominence of the pancreatic head with irregular margins measuring approximately 3 x 3 cm. There are is interval loculated branching finding anterior to the upper liver measuring 2 cm series 6 image 56. Pelvis: Prostate is enlarged. Urinary bladder is distended. There is extensive sigmoid diverticulosis. There is wall thickening through the region of diverticulosis. There is possible mild inflammation versus wall edema from trace ascites. No other bowel inflammation or obstruction seen. No free fluid, free air, or abscess otherwise. No enlarged adenopathy. There is mild anasarca. Osseous structures: There is moderate lumbar degenerative disc disease. There are moderate to severe degenerative changes at the hips. IMPRESSION: 1. Possible 3 cm pancreatic head mass with increased pancreatic ductal dilatation distal to the mass. Possible superimposed minimal pancreatitis. 2. Interval small finding anterior to the liver. Differential diagnosis includes mass/metastatic disease, ectopic pancreatic tissue, and other finding. 3. Mild acute uncomplicated sigmoid diverticulitis versus mild diffuse colitis, versus mild bowel edema due to trace ascites. No bowel obstruction seen. 4. Otherwise as described. ACT 112: Positive. There are findings on this exam that require communication between the performing entity and the patient following Patient Test Result Information Act ([place] Act 112) guidelines. The above report was generated using voice recognition software. It may contain grammatical, syntax or spelling errors. Electronically signed by: Clint Mccarthy M.D. 04/13/2025 12:56 PM Chest CTA 04/13/25 11:15 CT ANGIOGRAM OF THE CHEST CLINICAL HISTORY: Epigastric abdominal pain. COMPARISON STUDY: Chest CT dated 03/04/2016. TECHNIQUE: Following the IV administration of 119 cc of Optiray 320, CT angiogram of the chest was performed from the upper abdomen to the thoracic inlet utilizing the pulmonary embolus protocol. Images are reviewed in the axial, sagittal, and coronal planes. 3-D MIPS images are created and assessed. IV contrast was administered without complication. A dose lowering technique was utilized adhering to the principles of ALARA. FINDINGS: Thyroid: Imaged portions of the thyroid gland are normal in size and attenuation. Thoracic aorta: There is atherosclerotic calcification of the thoracic aorta, which is normal in caliber and demonstrates 4-vessel variant arch anatomy. The thoracic aorta is not opacified. Pulmonary vasculature: The pulmonary trunk is dilated, measuring 3.5 cm diameter. This suggests pulmonary artery hypertension. There are no filling defects identified in main, lobar, or segmental pulmonary branches to suggest pulmonary embolus. Heart: The heart is enlarged and without pericardial effusion. The coronary arteries are densely calcified. Lungs and pleural spaces: There is no airspace consolidation or pleural effusion. The trachea and central airways are clear. There are scattered calcified granulomas. Linear scarring/atelectasis is noted at the right lung base. A fat-containing Bochdalek hernia is seen on the left. Mediastinum: There is no mediastinal lymphadenopathy. An enlarged right internal mammary lymph node on image #140 measures 1.2 x 0.8 cm. [place]: Clear. Axillae: There is no axillary lymphadenopathy. Upper abdomen: A small hiatal hernia is noted. There is postsurgical change from left hepatic lobe resection. Irregular nodules/nodes in the right cardiophrenic space measuring up to 2.1 cm seen on image #47. These are suspicious for metastatic disease. There is mild intrahepatic biliary ductal dilatation. Skeletal structures: The skeletal structures are osteopenic. There is evidence of multifocal osteoblastic metastatic disease. Lesions are seen within the manubrium and body of the sternum, both scapulae, bilateral ribs, and the thoracic spine. IMPRESSION: 1. There is no evidence of pulmonary embolus in the main, lobar, or segmental pulmonary arteries. 2. Cardiomegaly with evidence of pulmonary artery hypertension. 3. There is no airspace consolidation or pleural effusion. 4. There is multifocal osteoblastic metastatic disease, which is new from 03/04. Correlate with the oncological history. 5. A pathologically enlarged right internal mammary lymph node, as well as enlarged right cardiophrenic nodes/implants are also suspicious for metastatic disease. 6. Advanced coronary artery atherosclerosis. 7. Additional findings as above. ACT 112: Negative or not required by law. Electronically signed by: Omar Gaytan M.D. 04/13/2025 12:59 PM Cholangiopancreatography MRI 04/14/25 12:56 MRCP CLINICAL HISTORY: Epigastric abdominal pain. Reported history of metastatic neuroendocrine tumor. COMPARISON STUDY: Abdominal CT dated 04/13/2025. MRCP dated 11/15/2020. TECHNIQUE: High-resolution MRCP is performed utilizing various T2-weighted sequences in the axial and coronal planes. 3-D reformats are created and assessed. Diffusion-weighted imaging was utilized. IV contrast was not administered for this examination. The examination is degraded by motion artifact. FINDINGS: The gallbladder surgically absent. There is mild central intrahepatic biliary duct dilatation. The common bile duct is dilated to the level of the pancreatic head, measuring up to 8 mm diameter. No intraluminal filling defects are seen to suggest choledocholithiasis. There is a mass lesion in the expected location of the pancreatic head seen on axial image #18 which measures approximately 3 x 1.5 cm. The distal pancreas is atrophic with dilatation of the pancreatic duct. This measures up to 5 mm in diameter. There is postsurgical change from left hepatic lobe resection. A 1.2 cm T2 hyperintense lesion in the dome of the liver is seen on axial image #7. Right cardiophrenic lymph nodes/implants were better assessed on yesterday's CT scans. There may be an additional 2.1 cm implant along the left hepatic lobe resection margin seen on axial image #14. There is trace perihepatic ascites. The unenhanced spleen, adrenal glands, and kidneys are grossly unremarkable. The abdominal aorta is ectatic noting atherosclerotic plaque and irregularity imaged portions the bowel show no evidence of obstruction. The heart is enlarged noting a small pericardial effusion. There are small pleural effusions. There is evidence of multifocal bony metastatic disease. IMPRESSION: 1. Status post cholecystectomy and left hepatic lobe resection. 2. There is intra and extrahepatic biliary ductal dilatation as well as significant dilatation on the pancreatic duct. This is secondary to a mass lesion in the expected location of the pancreatic head. This could represent a metastasis or primary pancreatic lesion, and the lesion was better delineated on yesterday's abdominal CT. 3. There is an indeterminant 1.2 cm right lobe hepatic lesion, and a possible additional lesion scalloping the left hepatic lobe resection margin. Metastases are not excluded. 4. Right cardiophrenic lymph nodes/implants were better assessed on yesterday's CT scans. These are also likely metastatic. 5. Multifocal bony metastatic disease. 6. Small pleural effusions. 7. Trace perihepatic ascites. Electronically signed by: Omar Gaytan M.D. 04/14/2025 3:06 PM 04/13/25 11:15 CT abd pelvis IV con only Stat CT angio chest PE protocol Stat 04/14/25 12:56 MR MRCP Urgent Pending Results Patient Have Any Pending Studies at Discharge: No Discharge Instructions Given to Patient (Per Discharging Provider) Please refer to accompanying hospital discharge summary Total Time Total Time Spent Total Time Spent (In Minutes): 60 minutes
[2025-04-15 14:09] VITALS: BP 163/104; PULSE 75
== END 2025-04-15 15:06 | disposition short-term general hospital (02) | DRG 438 ==
LOC: ED 10:50 → 2E 14:06 → SUATTDRO 14:06 → 2E 15:40